=== PATIENT | male | born 1955 | race American Indian/Alaskan Native ===

== ENCOUNTER 2017-03-14 15:24 | Inpatient (IN) ==
--- NOTE | 2017-03-14 15:50 | Emergency Department Note ---
Chest Pain HPI - General Chief Complaint: Chest Pain Stated Complaint: Chest pain Time Seen by Provider: 03/14/17 15:39 Source: patient, EMS Mode of arrival: EMS Limitations: no limitations - History of Present Illness HPI Narrative: This patient has had some chest pain for about a week. Coughing a lot of white phlegm. He claims to have a 50 pound weight gain but has been started on some diuresis. He does feel slightly short of breath. He has renal insufficiency but is not on dialysis. He does have a history of heart failure with a implantable defibrillator. Also coronary disease. This pain in his chest has been constant for a week. Seems to be associated with his cough. He did go to the anemia clinic and was hypotensive there. Blood pressure is now higher at 96 systolic after some fluid. - Related Data Home Medications Medication Instructions Recorded Confirmed allopurinol 300 mg tablet 300 mg PO QDAY tab 10/07/14 09/27/16 amitriptyline 10 mg tablet 10 mg PO QHS tab 10/07/14 09/27/16 aspirin 81 mg chewable tablet 81 mg PO QDAY tab 10/07/14 09/27/16 insulin aspart 100 unit/mL 80 unit SUB-Q .COMPLEX ml 10/07/14 09/27/16 subcutaneous pen simvastatin 40 mg tablet 40 mg PO QPM tab 10/07/14 09/27/16 spironolactone 25 mg tablet 25 mg PO QDAY tab 10/07/14 09/27/16 Warfarin [Coumadin] 1 mg PO QDAY tab 07/11/15 09/27/16 metoprolol tartrate 50 mg tablet 75 mg PO BID tab 07/11/15 09/27/16 omega-3 fatty acids 1,000 mg 1,000 mg PO BID cap 07/11/15 09/27/16 capsule insulin glargine 100 unit/mL 82 unit SUB-Q BID ml 11/13/15 09/27/16 subcutaneous solution probenecid 500 mg tablet 250 mg PO BID tab 07/02/16 09/27/16 albuterol sulfate HFA 90 See Label Instructions INHALATION 09/27/16 09/27/16 mcg/actuation aerosol inhaler .Q4-6H PRN g digoxin 250 mcg tablet 500 mcg PO QHS tab 09/27/16 09/27/16 magnesium oxide 420 mg tablet 420 mg PO QDAY 09/27/16 09/27/16 potassium chloride ER 10 mEq 10 meq PO QDAY 30 Days #30 tab 09/27/16 09/27/16 tablet,extended release Previous Rx's Medication Instructions Recorded fenofibrate 54 mg tablet 54 mg PO QDAY #30 tab 07/11/15 furosemide 20 mg tablet 40 mg PO QDAY #60 tab 09/27/16 losartan 25 mg tablet 12.5 mg PO QDAY 30 Days #15 tab 09/27/16 HYDROcodone/APAP 5/325MG [[place] 1 tab PO Q4HP PRN #20 tab 03/01/17 5/325Mg] Allergies Allergy/AdvReac Type Severity Reaction Status Date / Time lactose Allergy Unknown Unknown Verified 02/27/17 14:59 adhesive Tape Allergy Unknown Rash Uncoded 09/27/16 14:31 Review of Systems All systems ED: reviewed and negative except as stated. Chest Pain PMH - Past Medical History [facility] Narrative: Medical History (Last Reviewed 09/27/16 @ 15:18 by Leidy Thompson MD) Hypoglycemia due to insulin (Acute) Diabetes mellitus type 2, uncontrolled, with complications (Acute) Morbid obesity due to excess calories (Acute) Hematocele (Acute) Chronic kidney disease, stage III (moderate) (Chronic) Chronic kidney disease, stage II (mild) (Chronic) History of pacemaker (Chronic 06/01/09) Venous stasis ulcer (Chronic) Ulcer of foot (Chronic) Fracture of thoracic vertebra, closed (Chronic) Ventricular aneurysm (Chronic) Spina bifida (Chronic) Seminoma (Chronic) Retinopathy, diabetic, background (Chronic) Onychomycosis (Chronic) Obesity (Chronic) Acute anterior myocardial infarction (Chronic) Lactose intolerance (Chronic) Ischemic cardiomyopathy (Chronic) Hypertension, essential (Chronic) Hyperlipidemia (Chronic) Gout (Chronic) Diabetes mellitus, type II (Chronic) Coronary artery disease (Chronic) Cerebrovascular disease (Chronic) Secondary cardiomyopathy (Chronic) Cardiomyopathy (Chronic) Atrial fibrillation (Chronic) Asthma (Chronic) Past Surgical History (Last Reviewed 09/27/16 @ 15:18 by Leidy Thompson MD) History of implantable cardioverter-defibrillator (ICD) placement (Chronic 06/01) History of knee surgery (Chronic 06/20/94) History of orchiectomy (Chronic) History of surgical removal of skin lesion (Chronic) History of colonoscopy (Chronic 08/18/09) History of angioplasty (Chronic) Family History (Last Reviewed 09/27/16 @ 15:18 by Leidy Thompson MD) Unknown Family history unknown Medical history: Reports: asthma, DM, hyperlipidemia, hypertension, kidney stones, myocardial infarction, obesity, TIA, other Psychiatric history: Reports: anxiety - Social History smoking status: Never smoker Alcohol use: Reports: None Drug use: Reports: none Physical Exam Limitations: no limitations Head: atraumatic Eye: Present: normal appearance ENT: normal exam Neck: Present: normal inspection Chest: Present: normal inspection Respiratory: Present: normal lung sounds bilaterally Cardiovascular: Present: regular rate, normal rhythm, normal heart sounds Abdominal: Present: soft. Absent: distention, tenderness Extremities: Present: pedal edema, pretibial edema Neurological: Present: alert Psychiatric: Present: normal affect, normal mood Skin: Present: warm, dry, intact Course Vital Signs Temperature 96.9 F L 03/14/17 15:25 Pulse Rate 65 03/14/17 15:25 Respiratory Rate 13 03/14/17 15:25 Blood Pressure 96/61 03/14/17 15:25 Pulse Oximetry (%) 96 03/14/17 15:25 Temperature 96.9 F L 03/14/17 15:25 Pulse Rate 68 03/14/17 19:49 Respiratory Rate 21 03/14/17 19:49 Blood Pressure 104/66 03/14/17 19:49 Pulse Oximetry (%) 97 03/14/17 19:49 Chest Pain - MDM Narrative Medical decision making narrative: Patient's chest x-ray was read as normal. He did require some fluid to get his blood pressure up. It sounds like maybe he has been over diuresed recently. He has had a productive cough for several weeks. We will go ahead and admit him to the [facility]. - Lab Data Lab results reviewed: Yes I reviewed the patient's lab results. Result diagrams: 03/14/17 15:40 03/14/17 15:40 Lab Results 03/14/17 03/14/17 03/14/17 Range/Units 15:40 15:40 15:40 WBC 7.0 (4.5-11.0) K/mcL RBC 4.71 (4.50-5.90) M/mcL Hgb 13.3 L (13.5-16.5) g/dL Hct 40.9 L (41.0-55.0) % MCV 86.9 (80.0-100.0) fL MCH 28.2 (26.0-34.0) pg MCHC 32.5 (31.0-36.0) g/dL RDW 18.9 H (11.5-14.5) % Plt Count 130 L (140-440) K/mcL MPV 9.6 (7.4-10.4) fL Gran % 78.0 (38.0-78.0) % Lymph % (Auto) 5.8 L (15.5-49.0) % Bradford % (Auto) 9.5 (1.0-12.0) % Eos % (Auto) 6.1 (0.0-7.0) % Baso % (Auto) 0.6 (0.0-2.0) % Gran # 5.4 (1.8-8.0) K/mcL Lymph # (Auto) 0.4 L (1.5-4.8) K/mcL Bradford # (Auto) 0.7 (0.1-0.9) K/mcL Eos # (Auto) 0.4 (0.0-0.7) K/mcL Baso # (Auto) 0 (0.0-0.3) K/mcL POC PT (11.9-14.5) sec PT (11.9-14.5) sec POC INR (0.9-1.2) INR (0.9-1.1) VBG Lactic Acid (0.5-2.2) mmol/L Sodium 133 (133-145) mmol/L Potassium 4.9 (3.3-5.1) mmol/L Chloride 93 L (96-108) mmol/L Carbon Dioxide 25 (22-30) mmol/L Anion Gap 15.0 (8-16) BUN 70 H (6-20) mg/dl Creatinine 2.2 H (0.7-1.2) mg/dl GFR Calculation 32 Glucose 116 H (70-105) mg/dL Calcium 8.6 (8.6-10.4) mg/dl Total Bilirubin 1.3 H (0.0-1.0) mg/dL AST 32 (0-37) U/l ALT 19 (0-40) U/l Alkaline Phosphatase 379 H (39-117) U/L Troponin T 0.03 (0-0.03) ng/ml NT-Pro-B Natriuret Pep 1265.0 H (0-125) pg/ml Total Protein 7.2 (5.9-8.4) gm/dL Albumin 3.3 (3.2-5.2) gm/dL Globulin 3.9 H (2.2-3.7) gm/dL Albumin/Globulin Ratio 0.8 L (1.0-2.3) Digoxin ng/mL Digoxin Dose Digox Last Dose Time 03/14/17 03/14/17 03/14/17 Range/Units 15:40 15:40 15:56 WBC (4.5-11.0) K/mcL RBC (4.50-5.90) M/mcL Hgb (13.5-16.5) g/dL Hct (41.0-55.0) % MCV (80.0-100.0) fL MCH (26.0-34.0) pg MCHC (31.0-36.0) g/dL RDW (11.5-14.5) % Plt Count (140-440) K/mcL MPV (7.4-10.4) fL Gran % (38.0-78.0) % Lymph % (Auto) (15.5-49.0) % Bradford % (Auto) (1.0-12.0) % Eos % (Auto) (0.0-7.0) % Baso % (Auto) (0.0-2.0) % Gran # (1.8-8.0) K/mcL Lymph # (Auto) (1.5-4.8) K/mcL Bradford # (Auto) (0.1-0.9) K/mcL Eos # (Auto) (0.0-0.7) K/mcL Baso # (Auto) (0.0-0.3) K/mcL POC PT (11.9-14.5) sec PT > 150.0 H (11.9-14.5) sec POC INR (0.9-1.2) INR > 20.0 H* (0.9-1.1) VBG Lactic Acid 1.3 (0.5-2.2) mmol/L Sodium (133-145) mmol/L Potassium (3.3-5.1) mmol/L Chloride (96-108) mmol/L Carbon Dioxide (22-30) mmol/L Anion Gap (8-16) BUN (6-20) mg/dl Creatinine (0.7-1.2) mg/dl GFR Calculation Glucose (70-105) mg/dL Calcium (8.6-10.4) mg/dl Total Bilirubin (0.0-1.0) mg/dL AST (0-37) U/l ALT (0-40) U/l Alkaline Phosphatase (39-117) U/L Troponin T (0-0.03) ng/ml NT-Pro-B Natriuret Pep (0-125) pg/ml Total Protein (5.9-8.4) gm/dL Albumin (3.2-5.2) gm/dL Globulin (2.2-3.7) gm/dL Albumin/Globulin Ratio (1.0-2.3) Digoxin 0.5 ng/mL Digoxin Dose Not Reportable Digox Last Dose Time Not Reportable 03/14/17 Range/Units 19:14 WBC (4.5-11.0) K/mcL RBC (4.50-5.90) M/mcL Hgb (13.5-16.5) g/dL Hct (41.0-55.0) % MCV (80.0-100.0) fL MCH (26.0-34.0) pg MCHC (31.0-36.0) g/dL RDW (11.5-14.5) % Plt Count (140-440) K/mcL MPV (7.4-10.4) fL Gran % (38.0-78.0) % Lymph % (Auto) (15.5-49.0) % Bradford % (Auto) (1.0-12.0) % Eos % (Auto) (0.0-7.0) % Baso % (Auto) (0.0-2.0) % Gran # (1.8-8.0) K/mcL Lymph # (Auto) (1.5-4.8) K/mcL [place] # (Auto) (0.1-0.9) K/mcL Eos # (Auto) (0.0-0.7) K/mcL Baso # (Auto) (0.0-0.3) K/mcL POC PT 39.9 H (11.9-14.5) sec PT (11.9-14.5) sec POC INR 3.5 H (0.9-1.2) INR (0.9-1.1) VBG Lactic Acid (0.5-2.2) mmol/L Sodium (133-145) mmol/L Potassium (3.3-5.1) mmol/L Chloride (96-108) mmol/L Carbon Dioxide (22-30) mmol/L Anion Gap (8-16) BUN (6-20) mg/dl Creatinine (0.7-1.2) mg/dl GFR Calculation Glucose (70-105) mg/dL Calcium (8.6-10.4) mg/dl Total Bilirubin (0.0-1.0) mg/dL AST (0-37) U/l ALT (0-40) U/l Alkaline Phosphatase (39-117) U/L Troponin T (0-0.03) ng/ml NT-Pro-B Natriuret Pep (0-125) pg/ml Total Protein (5.9-8.4) gm/dL Albumin (3.2-5.2) gm/dL Globulin (2.2-3.7) gm/dL Albumin/Globulin Ratio (1.0-2.3) Digoxin ng/mL Digoxin Dose Digox Last Dose Time - Radiology Data Radiology results reviewed: Yes I reviewed the patient's radiology results. Disposition Pt seen by RESIDENTIAL AIR SEALING TECHNICIAN/PA only: No Clinical Impression: Chest pain, Bronchitis, Congestive heart failure Disposition: Xfer As Inpt ([facility]) Condition: Fair Referrals: Belen Osman [Primary Care Provider] - Time of Disposition: 19:52
[2017-03-14 16:13] LABS: Basophils # (Auto) 0 K/mcL (0.0-0.3); Basophils % (Auto) 0.6 % (0.0-2.0); Eosinophils # (Auto) 0.4 K/mcL (0.0-0.7); Eosinophils % (Auto) 6.1 % (0.0-7.0); Lymphocytes # (Auto) 0.4 K/mcL (1.5-4.8); Lymphocytes % (Auto) 5.8 % (15.5-49.0); Mean Cell Volume 86.9 fL (80.0-100.0); Mean Corpuscular HGB Conc 32.5 g/dL (31.0-36.0); Mean Corpuscular Hemoglobin 28.2 pg (26.0-34.0); Monocytes # (Auto) 0.7 K/mcL (0.1-0.9); Monocytes % (Auto) 9.5 % (1.0-12.0); Platelet Count 130 K/mcL (140-440); RBC 4.71 M/mcL (4.50-5.90); Red Cell Distribution Width 18.9 % (11.5-14.5)
--- NOTE | 2017-03-14 16:14 | XRay Report ---
INDICATION: Cough TECHNIQUE: PA and lateral upright chest x-ray COMPARISON: Chest x-rays dated 01/01/2017 and 05/21/2013 FINDINGS:Left transvenous pacemaker leads are unchanged There is cardiomegaly. No pulmonary edema. No focal pulmonary consolidation. There is blunting of the posterior costophrenic sulci bilaterally consistent with small effusions. IMPRESSION: 1. Cardiomegaly. No pulmonary edema. 2. No focal pulmonary parenchymal infiltrates 3. Small posterior pleural effusions. Interpreted and Authenticated by: Jose Kahn 03/14/17
[2017-03-14 16:32] LABS: ALT/SGPT 19 U/l (0-40); Albumin 3.3 gm/dL (3.2-5.2); Albumin/Globulin Ratio 0.8 (1.0-2.3); Alkaline Phosphatase 379 U/L (39-117); Blood Urea Nitrogen 70 mg/dl (6-20)
[2017-03-14] MEDS ORDERED: LEVOFLOXACIN 750 MG/150 ML BAG IV ONE (18:05)
[2017-03-14] MEDS ORDERED: ACETAMINOPHEN 325 MG TABLET PO PRN (20:49)
[2017-03-14] MEDS ORDERED: ONDANSETRON 4 MG/2 ML VIAL IV PRN (20:49)
[2017-03-14] MEDS ORDERED: DEXTROSE 50% 50 ML VIAL IV PRN (22:05)
[2017-03-14] MEDS ORDERED: DEXTROSE 31 GM ORAL.SUSP PO PRN (22:05)
--- NOTE | 2017-03-14 22:10 | Internal Med History&Physical ---
Medical - H&P: [facility] Patient information: Note initiated : 03/14/17 at 10:10 pm Service Date, if different from initiated Date: [] Patient: Alfredo Mccall III 61 y/o M admitted on 03/14/17 for Chest pain. Chief Complaint: chest pain and SOB 61-year-old male with an extensive cardiac history, including severe cardiomyopathy, chronic atrial fibrillation, presented to the ED with chest pressure associated with SOB, non-radiating and not related to exertion. Patient has been in different EDs and the [facility] 5 times in the last 10 days for different problems, including shortness of breath. Since he has gained 50 lbs in weight with significantly worsening pedal edema. He was started on diuretics and upon arrival in the ED his SBP was 96. Patient has been a diabetic since age 37, and reportedly has been difficult to control. There are no records available in our EMR, and patient can't recall his last A1C. He has an AICD since 2009, and has severe cardiomyopathy with EF 20%, no significant valvular abnormalities and probable pulmonary hypertension. 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 He also has yeast infection of the inguinal area and difficulty voiding due to the pannus. Other problems include PVD and L foot ulceration. He underwent bilateral LE angiography on 03/11 which showed patent arteries on the R. On the L, the arteries are patent, but there is a significant resistance to flow on the L side , responding to Verapamil infusion. History of present illness: Mr. Cal WESTON is a 61 year old M All systems: reviewed and no additional remarkable complaints except as stated Medical - H&P: PMH Medical history: Medical History (Last Reviewed 03/14/17 @ 20:17 by Lenin Bone MD) Hypoglycemia due to insulin (Acute) Diabetes mellitus type 2, uncontrolled, with complications (Acute) Morbid obesity due to excess calories (Acute) Hematocele (Acute) Chest pain (Acute) Bronchitis (Acute) Congestive heart failure (Acute) Chronic kidney disease, stage III (moderate) (Chronic) Chronic kidney disease, stage II (mild) (Chronic) History of pacemaker (Chronic 06/01/09) Venous stasis ulcer (Chronic) Ulcer of foot (Chronic) Fracture of thoracic vertebra, closed (Chronic) Ventricular aneurysm (Chronic) Spina bifida (Chronic) Seminoma (Chronic) Retinopathy, diabetic, background (Chronic) Onychomycosis (Chronic) Obesity (Chronic) Acute anterior myocardial infarction (Chronic) Lactose intolerance (Chronic) Ischemic cardiomyopathy (Chronic) Hypertension, essential (Chronic) Hyperlipidemia (Chronic) Gout (Chronic) Diabetes mellitus, type II (Chronic) Coronary artery disease (Chronic) Cerebrovascular disease (Chronic) Secondary cardiomyopathy (Chronic) Cardiomyopathy (Chronic) Atrial fibrillation (Chronic) Asthma (Chronic) Surgical history: Past Surgical History (Last Reviewed 03/14/17 @ 20:17 by Lenin Bone MD) History of implantable cardioverter-defibrillator (ICD) placement (Chronic 06/01) History of knee surgery (Chronic 06/20/94) History of orchiectomy (Chronic) History of surgical removal of skin lesion (Chronic) History of colonoscopy (Chronic 08/18/09) History of angioplasty (Chronic) Pertinent family history: NEGATIVE FOR HEART DISEASE Social history: CURRENTLY LIVES WITH NIECE, BUT HAS HIS OWN PLACE Functional capacity: independent ambulation Smoking status: Never smoker Drug use: none Alcohol use: none Medical - H&P: Meds Home Medications Medication Instructions Recorded Confirmed Type allopurinol 300 mg tablet 300 mg PO QDAY tab 10/07/14 09/27/16 History amitriptyline 10 mg tablet 10 mg PO QHS tab 10/07/14 09/27/16 History aspirin 81 mg chewable tablet 81 mg PO QDAY tab 10/07/14 09/27/16 History insulin aspart 100 unit/mL 80 unit SUB-Q .COMPLEX ml 10/07/14 09/27/16 History subcutaneous pen simvastatin 40 mg tablet 40 mg PO QPM tab 10/07/14 09/27/16 History spironolactone 25 mg tablet 25 mg PO QDAY tab 10/07/14 09/27/16 History RX: Warfarin [Coumadin] 1 mg PO QDAY tab 07/11/15 09/27/16 History fenofibrate 54 mg tablet 54 mg PO QDAY #30 tab 07/11/15 09/27/16 Rx metoprolol tartrate 50 mg tablet 75 mg PO BID tab 07/11/15 09/27/16 History omega-3 fatty acids 1,000 mg 1,000 mg PO BID cap 07/11/15 09/27/16 History capsule insulin glargine 100 unit/mL 82 unit SUB-Q BID ml 11/13/15 09/27/16 History subcutaneous solution probenecid 500 mg tablet 250 mg PO BID tab 07/02/16 09/27/16 History albuterol sulfate HFA 90 See Label Instructions INHALATION 09/27/16 09/27/16 History mcg/actuation aerosol inhaler .Q4-6H PRN g digoxin 250 mcg tablet 500 mcg PO QHS tab 09/27/16 09/27/16 History furosemide 20 mg tablet 40 mg PO QDAY #60 tab 09/27/16 09/27/16 Rx losartan 25 mg tablet 12.5 mg PO QDAY 30 Days #15 tab 09/27/16 09/27/16 Rx magnesium oxide 420 mg tablet 420 mg PO QDAY 09/27/16 09/27/16 History potassium chloride ER 10 mEq 10 meq PO QDAY 30 Days #30 tab 09/27/16 09/27/16 History tablet,extended release RX: HYDROcodone/APAP 5/325MG 1 tab PO Q4HP PRN #20 tab 03/01/17 Rx [[place] 5/325Mg] Allergies Allergy/AdvReac Type Severity Reaction Status Date / Time lactose Allergy Unknown Unknown Verified 02/27/17 14:59 adhesive Tape Allergy Unknown Rash Uncoded 09/27/16 14:31 Medical - H&P: Exam - Constitutional Vitals: Temp Pulse Resp BP Pulse Ox 96.9 F L 64 11 L 97/76 97 03/14/17 15:25 03/14/17 21:44 03/14/17 21:44 03/14/17 21:44 03/14/17 21:44 General appearance: morbidly obese - Head Head exam: Present: normal inspection - Eye Eye exam: Present: EOMI, PERRL - Neck Neck exam: Present: normal inspection - Respiratory Respiratory exam: Present: decreased breath sounds - Cardiovascular Cardiovascular exam: Present: irregular rhythm - GI/Abdominal GI/Abdominal exam: Present: normal bowel sounds, soft - Extremities Exam Extremities exam: Present: pedal edema Additional comments: CHRONIC VENOUS STASIS DERMATITIS BILATERALLY WITH SIGNIFICANT EDEMA. ULCERATION OF L FOOT. NO DRAINAGE. Medical - H&P: Reslt - Labs CBC & Chem 7: 03/14/17 15:40 03/14/17 15:40 Labs: Short CBC 03/14/17 Range/Units 15:40 WBC 7.0 (4.5-11.0) K/mcL Hgb 13.3 L (13.5-16.5) g/dL Hct 40.9 L (41.0-55.0) % Plt Count 130 L (140-440) K/mcL BMP 03/14/17 15:40 Sodium 133 Potassium 4.9 Chloride 93 L Carbon Dioxide 25 BUN 70 H Creatinine 2.2 H Glucose 116 H Calcium 8.6 Cardiac Enzymes 03/14/17 Range/Units 15:40 Troponin T 0.03 (0-0.03) ng/ml Liver Function 03/14/17 Range/Units 15:40 Total Bilirubin 1.3 H (0.0-1.0) mg/dL AST 32 (0-37) U/l ALT 19 (0-40) U/l Alkaline Phosphatase 379 H (39-117) U/L Albumin 3.3 (3.2-5.2) gm/dL - EKG Data EKG comments: ATRIAL FIBRILLATION, AICD, RBBB Medical - H&P: A/P - Narrative A/P Narrative: 61-YEAR-OLD MALE, PRESENTED 03/14 TO THE ED WITH CP AND SOB. MEDICAL PROBLEMS: + CHEST PAIN Many risk factors present for ACS incl: HL, HTN, DM ECG baseline abnormal with BBB + SEVERE CARDIOMYOPATHY, S/P AICS PLACEMENT Uncertain whether ischemic vs non-ischemic Recent ECHO: LVEF 20%, no significant valvular abnormalities, suggestive of pulmonary hypertension + ANASARCA AND WEIGHT GAIN OF 50 LBS Uncertain etiology. Due to combination of cardiomyopathy and CKD r/o nephrotic syndrome + CHRONIC ATRIAL FIBRILLATION On coumadin + DM, POORLY CONTROLLED + HTN + HL + MORBID OBESITY WITH BMI 40 + CHRONIC KIDNEY DISEASE + CHRONIC VENOUS STASIS DERMATITIS LOWER EXTREMITIES + L FOOT ULCER Patient followed by wound clinic Currently, I don't have access to his cardiac and extensive pmh. Uncertain what the cause of anasarca is. Medication list was not available. PLAN: CPAP HS trial Diuretic. Titrate as SBP is marginal Hold Losartan Serial cardiac enzymes Insulin and SS consult wound care continue coumadin, pharmacy consult +
[2017-03-14] MEDS: 0.9 % SODIUM CHLORIDE 10 ML SYRINGE IV SCH (22:31)
[2017-03-14] MEDS: DOCUSATE SODIUM 100 MG CAPSULE PO SCH (23:12)
[2017-03-15] MEDS ORDERED: ZOLPIDEM 5 MG TABLET PO PRN ×2 (00:52→21:00)
[2017-03-15] MEDS ORDERED: HYDROCODONE/APAP 7.5/325MG TABLET PO PRN (00:54)
[2017-03-15] MEDS: 0.9 % SODIUM CHLORIDE 10 ML SYRINGE IV SCH ×3 (06:06→21:35)
[2017-03-15] MEDS ORDERED: FUROSEMIDE 20 MG/2 ML VIAL IV SCH ×2 (08:00→14:00)
[2017-03-15] MEDS: INSULIN LISPRO 1 UNIT/0.01 ML UNIT SQ SCH ×4 (08:55→21:25)
[2017-03-15] MEDS: DOCUSATE SODIUM 100 MG CAPSULE PO SCH ×2 (08:56→21:26)
[2017-03-15] MEDS ORDERED: NYSTATIN POWDER BOTTLE 15GM TOPICAL SCH (09:00)
[2017-03-15] MEDS ORDERED: ALLOPURINOL 300 MG TABLET PO SCH (09:00)
[2017-03-15 10:53] LABS: Appearance,Urine CLEAR; Bacteria,Urine 0 /hpf (0); Bilirubin,Urine NEG (NEG); Color,Urine YELLOW; Glucose,Urine (UA) NEGATIVE (NEG); Leukocyte Esterase,Urine NEG /uL (NEG); Mucus,Urine FEW /hpf (0); Nitrate,Urine NEG (NEG); Protein,Urine NEG (NEG); Urine Blood NEG mg/dL (<0.03); Urine RBC 2 /hpf (0-1); Urine Squamous Epithelial Cell 0 /hpf (0-4); Urine WBC 0 /hpf (0-4)
[2017-03-15 10:55] LABS: Creatinine,Urine Random 42.5 mg/dl
[2017-03-15] MEDS ORDERED: WARFARIN 3 MG TABLET PO ONE (14:00)
[2017-03-15] MEDS ORDERED: DIGOXIN 125 MCG TABLET PO SCH (14:00)
--- NOTE | 2017-03-15 14:02 | Nephrology Consult Note ---
History of Present Illness - Reason for Consult Patient information: Note initiated : 03/15/17 at 1:57 pm Service Date, if different from initiated Date: [] Patient: Alfredo Mccall III 61 y/o M admitted on 03/14/17 for Chest pain. Chief Complaint: [] Consult date: 03/15/17 acute renal failure Requesting physician: Lenin Bone - Chief Complaint sob - History of Present Illness Mr Cal is a 61 y/o male who is admitted with fluid overload and worsening renal function Patient has h/o ischemic cardiomyopathy with EF of 20%, CKD stage III and other medical issues. He presented to the ED yesterday with worsening SOB and chest tightness. ACS ruled out. He has had 50 lbs weight gain despite using loop diuretics. He c/o SOB with minimal exertion and orthopnea. He denies dizziness. He denies any urinary symptoms. He denies using NSAIDS. He is trying to watch his sodium intake He does drink 2-2.5L of water every day no other complaints, denies nausea, vomiting, diarrhea The patient has not been doing well recently, he had AICD placed and then had infection and needed repeat surgery He has had LE wound which is now finally healed per patient he has had several ER visits for various reasons including hypoglycemia, hyperkalemia, fluid overload Patient on evaluation is diagnosed with CHF/anasarca and he has BUN of 72, s.creatinine 2.2 which is significantly worse as compared to baseline renal function and hence nephrology is consulted Review of Systems All systems PM: reviewed and no additional remarkable complaints except as stated (as in HPI) Past History Past medical history: DM type 2 which is poorly controlled, his A1C are usually above 10 ischemic cardiomyopathy with EF of 20% CKD stage III, S.Creatinine is 1.2-1.5 at baseline dyslipidemia h/o scott's gangrene recent ho LE diabetic wound, h/o diabetic retinopathy Past surgical history: h/o angioplasty h/o AICD placement Past family history: not pertinent Past social history: currently lives with his niece 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 [employer] no addictions at present Medications and Allergies Home Medications Medication Instructions Recorded Confirmed Type allopurinol 300 mg tablet 300 mg PO QDAY tab 10/07/14 03/15/17 History amitriptyline 10 mg tablet 10 mg PO QHS tab 10/07/14 03/15/17 History aspirin 81 mg chewable tablet 81 mg PO QDAY tab 10/07/14 03/15/17 History insulin aspart 100 unit/mL 80 unit SUB-Q .COMPLEX PRN ml 10/07/14 03/15/17 History subcutaneous pen fenofibrate 54 mg tablet 54 mg PO QDAY #30 tab 07/11/15 09/27/16 Rx insulin glargine 100 unit/mL 30 unit SUB-Q BID ml 11/13/15 03/15/17 History subcutaneous solution albuterol sulfate HFA 90 See Label Instructions INHALATION 09/27/16 03/15/17 History mcg/actuation aerosol inhaler .Q4-6H PRN g digoxin 250 mcg tablet 250 mcg PO QHS tab 09/27/16 03/15/17 History magnesium oxide 420 mg tablet 420 mg PO QDAY 09/27/16 03/15/17 History HYDROcodone/APAP 5/325MG [[place] 1 tab PO Q4HP PRN #20 tab 03/01/17 03/15/17 Rx 5/325Mg] Ketoconazole 2% Top Crm 1 dose TOPICAL DAILY 03/15/17 03/15/17 History Loratadine [Loradamed] 10 mg PO BID 03/15/17 03/15/17 History Losartan Potassium [Cozaar] 25 mg PO QDAY 03/15/17 03/15/17 History Metoprolol Succinate [Toprol Xl] 75 mg PO BID 03/15/17 03/15/17 History Nystatin [Nyata] 1 dose TOPICAL DAILY 03/15/17 03/15/17 History [place]-3/Dha/Epa/Fish Oil [Fish Oil 1,000 mg PO BID 03/15/17 03/15/17 History 1,000 mg Softgel] Probenecid [Probenecid] 250 mg PO BID 03/15/17 03/15/17 History Simvastatin [Zocor] 40 mg PO HS 03/15/17 03/15/17 History Spironolactone [Aldactone] 12.5 mg PO BIDD 03/15/17 03/15/17 History Torsemide [Demadex] 20 mg PO DAILY@1700 03/15/17 03/15/17 History Torsemide [Demadex] 40 mg PO BID@08,1200 03/15/17 03/15/17 History Warfarin [Coumadin] 8 mg PO DAILY@1400 03/15/17 03/15/17 History Allergies Allergy/AdvReac Type Severity Reaction Status Date / Time lactose Allergy Unknown Unknown Verified 02/27/17 14:59 adhesive Tape Allergy Unknown Rash Uncoded 09/27/16 14:31 Exam - Vital Signs Vital signs: Temp Pulse Resp BP Pulse Ox 97.6 F 80 18 109/63 99 03/15/17 13:00 03/15/17 13:00 03/15/17 13:00 03/15/17 13:01 03/15/17 13:00 - General Appearance General appearance: appears started age, obese EENT: mucous membranes moist Neck: no JVD Respiratory: clear Cardiology: no rub, edema (3+), irregular rhythm Gastrointestinal: no tenderness, no guarding Integumentary: warm and dry Neurologic: no focal deficit, alert and oriented x3 Musculoskeletal: no erythema, no cyanosis Psychiatric: mood/affect appropriate Results - Lab Results 03/14/17 15:40 03/14/17 15:40 Most recent lab results Calcium 8.6 mg/dl (8.6-10.4) 03/14/17 15:40 Assessment and Plan (1) Acute on chronic renal failure Patient with BUN of 72, s.creat of 2.2 which is significantly worse than his baseline renal function he has no overt proteinuria which is strange as he has h/o significant proteinuria related to his DM His Fena is 2.2 but his fe urea is 31% which indicates pre renal state patient's worsening renal function is likely from cardio renal state fluid overload is ? related to worsening renal function and diuretic resistant from use of excess sodium in the diet and excess fluid intake I will increase his IV lasix to 20mg q8hrs as he seems to be making more urine with IV lasix as compared to oral I will restrict his fluid intake to 1.2L I will follow his I/O and renal function and titrate his diuretic dose would hold losartan for now need to be on low sodium diet I will continue to follow him Thank you for giving me an opportunity to participate in Mr Mccall's medical care, appreciate it Status: Acute (2) Congestive heart failure Status: Acute
[2017-03-15] MEDS ORDERED: FUROSEMIDE 40 MG/4 ML VIAL IV SCH (16:00)
--- NOTE | 2017-03-15 16:26 | Internal Med Progress Note ---
Medical - PN: Subj Patient information: Note initiated : 03/15/17 at 4:21 pm Service Date, if different from initiated Date: [] Patient: Alfredo Mccall III 61 y/o M admitted on 03/14/17 for Chest pain. 61-year-old male with an extensive cardiac history, including severe cardiomyopathy, chronic atrial fibrillation, presented to the ED with chest pressure associated with SOB, non-radiating and not related to exertion. Patient has been in different EDs and the [facility] 5 times in the last 10 days for different problems, including shortness of breath. Since he has gained 50 lbs in weight with significantly worsening pedal edema. He was started on diuretics and upon arrival in the ED his SBP was 96. Patient has been a diabetic since age 37, and reportedly has been difficult to control. There are no records available in our EMR, and patient can't recall his last A1C. He has an AICD since 2009, and has severe cardiomyopathy with EF 20%, no significant valvular abnormalities and probable pulmonary hypertension. 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 He also has yeast infection of the inguinal area and difficulty voiding due to the pannus. Other problems include PVD and L foot ulceration. He underwent bilateral LE angiography on 03/11 which showed patent arteries on the R. On the L, the arteries are patent, but there is a significant resistance to flow on the L side , responding to Verapamil infusion. Interval history: 61-YEAR-OLD MALE, PRESENTED 03/14 TO THE ED WITH CP AND SOB. 03/14: + CHEST PAIN Many risk factors present for ACS incl: HL, HTN, DM ECG baseline abnormal with BBB + SEVERE CARDIOMYOPATHY, S/P AICS PLACEMENT Uncertain whether ischemic vs non-ischemic Recent ECHO: LVEF 20%, no significant valvular abnormalities, suggestive of pulmonary hypertension + ANASARCA AND WEIGHT GAIN OF 50 LBS Uncertain etiology. Due to combination of cardiomyopathy and CKD r/o nephrotic syndrome + CHRONIC ATRIAL FIBRILLATION On coumadin + DM, POORLY CONTROLLED + HTN + HL + MORBID OBESITY WITH BMI 40 + CHRONIC KIDNEY DISEASE + CHRONIC VENOUS STASIS DERMATITIS LOWER EXTREMITIES + L FOOT ULCER Patient followed by wound clinic 03/15: CPAP HS trial not well tolerated BS low on Glargine BID dosing -------> will change to HS only Cr worsening. Nephrology consulted Troponin wnl Continue to hold Losartan for marginal BP - Constitutional Vitals: Vital Signs Temp Pulse Resp BP Pulse Ox 97.6 F 80 18 109/63 99 03/15/17 13:00 03/15/17 13:00 03/15/17 13:00 03/15/17 13:01 03/15/17 13:00 Period Temp Pulse Resp BP Sys/Hernandez Pulse Ox Last 24 Hr 97.0 F-98.2 F 34-81 0-27 79-115/58-86 94-99 Intake and Output 03/15/17 03/15/17 03/15/17 05:59 13:59 21:59 Intake Total 740 / 740 120 / 120 Output Total 750 / 750 1325 / 1325 750 / 750 Balance -10 / -10 -1205 / -1205 -750 / -750 Weight 312 lb 8 oz Patient Weight 03/16/17 05:59 Weight 312 lb 8 oz Intake & Output: Intake & Output 03/15/17 03/15/17 03/15/17 05:59 13:59 21:59 Intake Total 740 / 740 120 / 120 Output Total 750 / 750 1325 / 1325 750 / 750 Balance -10 / -10 -1205 / -1205 -750 / -750 Weight 312 lb 8 oz Intake: Oral 740 / 740 120 / 120 Output: Void Amount 750 / 750 1325 / 1325 750 / 750 Other: Meal Breakfast Percent of Meal Consumed 100% Feeding Ability Independent General appearance: morbidly obese - Respiratory Respiratory exam: Present: decreased breath sounds - Cardiovascular Cardiovascular exam: Present: irregular rhythm - GI/Abdominal GI/Abdominal exam: Present: normal bowel sounds, soft - Extremities Exam Extremities exam: Present: pedal edema Additional comments: CHRONIC VENOUS STASIS DERMATITIS, L FOOT ULCER Medical - PN: Obj Da - Labs CBC & Chem 7: 03/14/17 15:40 03/14/17 15:40 Labs: Abnormal Lab Results 03/15/17 03/15/17 03/14/17 10:23 07:37 19:14 Hgb Hct RDW Plt Count Lymph % (Auto) Lymph # (Auto) POC PT 39.9 H PT 31.0 H POC INR 3.5 H INR 2.9 H Chloride BUN Creatinine Glucose Total Bilirubin Alkaline Phosphatase NT-Pro-B Natriuret Pep Globulin Albumin/Globulin Ratio Urine Urobilinogen 4.0 A Urine RBC 2 H 03/14/17 03/14/17 03/14/17 15:40 15:40 15:40 Hgb 13.3 L Hct 40.9 L RDW 18.9 H Plt Count 130 L Lymph % (Auto) 5.8 L Lymph # (Auto) 0.4 L POC PT PT > 150.0 H POC INR INR > 20.0 H* Chloride 93 L BUN 70 H Creatinine 2.2 H Glucose 116 H Total Bilirubin 1.3 H Alkaline Phosphatase 379 H NT-Pro-B Natriuret Pep 1265.0 H Globulin 3.9 H Albumin/Globulin Ratio 0.8 L Urine Urobilinogen Urine RBC Meds: Medications Acetaminophen (Tylenol) 650 mg PO Q4-6HP PRN PRN Reason: PAIN/FEVER > 101 Hydrocodone Bitart/Acetaminophen ([place] 7.5/325mg) 1 tab PO Q4-6HP PRN PRN Reason: PAIN LEVEL 3-6 Allopurinol (Zylopriim) 300 mg PO DAILY [facility] Last Admin: 03/15/17 08:56 Dose: 300 mg Amitriptyline HCl (Elavil) 10 mg PO HS [facility] Aspirin (Aspirin) 81 mg PO QDAY [facility] Dextrose (Dextrose 50%) 0 ml IV UD PRN PRN Reason: Hypoglycemia Diagnostic Test (Pha) (Accu-Chek) 1 each FS ACHS [facility] Last Admin: 03/15/17 11:50 Dose: 1 each Digoxin (Lanoxin) 250 mcg PO DAILY@1400 [facility] Last Admin: 03/15/17 13:57 Dose: 250 mcg Docusate Sodium (Colace) 100 mg PO BID [facility] Last Admin: 03/15/17 08:56 Dose: Not Given Furosemide (Lasix) 20 mg IV Q8 [facility] Last Admin: 03/15/17 13:58 Dose: 20 mg Glucose (Insta-Glucose) 15 gm PO PRN PRN PRN Reason: Hypoglycemia Insulin Glargine (Lantus) 40 unit SQ HS [facility] Insulin Human Lispro (Humalog) 0 unit SQ ACHS [facility] PRN Reason: Protocol Last Admin: 03/15/17 11:51 Dose: Not Given Non-Formulary Medication (Ketoconazole 2% Top Crm) 1 dose TOPICAL DAILY [facility] Non-Formulary Medication (Magnesium Oxide [Magnesium Oxide]) 420 mg PO QDAY [facility] Non-Formulary Medication ([place]-3/Dha/Epa/Fish Oil [Fish Oil 1,000 Mg Softgel]) 1,000 mg PO BID [facility] Nystatin (Nystatin) 1 dose TOPICAL BID [facility] Last Admin: 03/15/17 12:18 Dose: Not Given Ondansetron HCl (Zofran) 4 mg IV Q4-6HP PRN PRN Reason: Nausea And Vomiting Pneumococcal Polyvalent Vaccine (Pneumovax 23) 0.5 ml IM .ONCE ONE Stop: 03/16/17 10:01 Probenecid (Probenecid) 250 mg PO BID [facility] Simvastatin (Zocor) 40 mg PO HS [facility] Sodium Chloride (Saline Flush) 10 ml IV Q8 [facility] Last Admin: 03/15/17 13:58 Dose: 10 ml Spironolactone (Aldactone) 12.5 mg PO BIDD [facility] Warfarin Sodium (Coumadin Per Pharmacy) 1 order PO DAILY@1400 [facility] Last Admin: 03/15/17 13:58 Dose: Not Given Zolpidem Tartrate (Ambien) 5 mg PO HSP PRN PRN Reason: Insomnia Medical - PN: A/P - Time Spent With Patient Total time spent is greater than 50% in coordination of care (as documented) at patient's floor/unit and/or counseling patient: 15 - 24 minutes - Narrative A/P Narrative: 61-YEAR-OLD MALE, PRESENTED 03/14 TO THE ED WITH CP AND SOB. MEDICAL PROBLEMS: + CHEST PAIN Many risk factors present for ACS incl: HL, HTN, DM ECG baseline abnormal with BBB Troponin negative. Stable will tx to [facility] + SEVERE CARDIOMYOPATHY, S/P AICS PLACEMENT Uncertain whether ischemic vs non-ischemic Recent ECHO: LVEF 20%, no significant valvular abnormalities, suggestive of pulmonary hypertension + ANASARCA AND WEIGHT GAIN OF 50 LBS Uncertain etiology. Due to combination of cardiomyopathy and CKD r/o nephrotic syndrome + CHRONIC ATRIAL FIBRILLATION On coumadin + DM, POORLY CONTROLLED + HTN + HL + MORBID OBESITY WITH BMI 40 + Acute on CHRONIC KIDNEY DISEASE?CARDIORENAL SX Worsening. Appreciate DR Thompson's help + CHRONIC VENOUS STASIS DERMATITIS LOWER EXTREMITIES + L FOOT ULCER Patient followed by wound clinic 03/15 PLAN: Glargine dose reduced Losartan continue hold Lasix dose adjusted by renal (dr Thompson) Tx to med floor Medical - PN: Qual - VTE Deep Vein Thrombosis/Pulmonary Embolism Present on Admission: No
[2017-03-15] MEDS ORDERED: DEXTROSE 50% 50 ML VIAL IV PRN (17:12)
[2017-03-15] MEDS ORDERED: ACETAMINOPHEN 325 MG TABLET PO PRN (17:12)
[2017-03-15] MEDS ORDERED: ONDANSETRON 4 MG/2 ML VIAL IV PRN (17:12)
[2017-03-15] MEDS ORDERED: DEXTROSE 31 GM ORAL.SUSP PO PRN (17:12)
[2017-03-15] MEDS ORDERED: AMITRIPTYLINE 10 MG TABLET PO SCH (21:00)
[2017-03-15] MEDS ORDERED: PROBENECID 500 MG TABLET PO SCH (21:00)
[2017-03-15] MEDS ORDERED: INSULIN GLARGINE, HUMAN 1 UNIT/0.01 ML SQ SCH ×2 (21:00)
[2017-03-15] MEDS ORDERED: SIMVASTATIN 20 MG TABLET PO SCH (21:00)
[2017-03-15] MEDS ORDERED: NON FORMULARY MEDICATION 1 DOSE MISCELL (Omega-3/Dha/Epa/Fish Oil [Fish Oil 1,000 Mg Softg PO SCH (21:00)
[2017-03-15] MEDS: FISH OIL 1,000 MG CAPSULE PO SCH (21:14)
[2017-03-15] MEDS: INSULIN GLARGINE, HUMAN 1 UNIT/0.01 ML SQ SCH (21:25)
[2017-03-15] MEDS: NYSTATIN POWDER BOTTLE 15GM TOPICAL SCH (21:25)
[2017-03-15] MEDS: AMITRIPTYLINE 10 MG TABLET PO SCH (21:26)
[2017-03-15] MEDS: SIMVASTATIN 20 MG TABLET PO SCH (21:26)
[2017-03-15] MEDS: FUROSEMIDE 20 MG/2 ML VIAL IV SCH (21:27)
[2017-03-15] MEDS: PROBENECID 500 MG TABLET PO SCH (21:56)
[2017-03-16] MEDS: FUROSEMIDE 20 MG/2 ML VIAL IV SCH ×3 (05:35→22:01)
[2017-03-16] MEDS: 0.9 % SODIUM CHLORIDE 10 ML SYRINGE IV SCH ×3 (05:36→22:02)
[2017-03-16 07:47] LABS: Albumin 3.3 gm/dL (3.2-5.2); Blood Urea Nitrogen 55 mg/dl (6-20)
[2017-03-16] MEDS: INSULIN LISPRO 1 UNIT/0.01 ML UNIT SQ SCH ×4 (08:00→20:44)
[2017-03-16] MEDS ORDERED: SPIRONOLACTONE 25 MG TABLET PO SCH (08:00)
[2017-03-16] MEDS: ALLOPURINOL 300 MG TABLET PO SCH (08:03)
[2017-03-16] MEDS: FISH OIL 1,000 MG CAPSULE PO SCH (08:03)
[2017-03-16] MEDS: ASPIRIN 81 MG TAB.CHEW PO SCH (08:03)
[2017-03-16] MEDS: MAGNESIUM OXIDE 400 MG TABLET PO SCH (08:03)
[2017-03-16] MEDS: SPIRONOLACTONE 25 MG TABLET PO SCH ×2 (08:04→16:42)
[2017-03-16] MEDS: DOCUSATE SODIUM 100 MG CAPSULE PO SCH ×2 (08:08→20:57)
[2017-03-16] MEDS: NYSTATIN POWDER BOTTLE 15GM TOPICAL SCH ×2 (08:10→20:44)
[2017-03-16] MEDS: KETOCONAZOLE 2% TOP CRM 15GM TUBE TOPICAL SCH (08:10)
[2017-03-16] MEDS ORDERED: KETOCONAZOLE 2% TOPICAL SCH (09:00)
[2017-03-16] MEDS ORDERED: ASPIRIN 81 MG TAB.CHEW PO SCH (09:00)
[2017-03-16] MEDS ORDERED: MAGNESIUM OXIDE 420 MG PO SCH (09:00)
[2017-03-16] MEDS ORDERED: PNEUMOCOCCAL 23-VAL P-SAC VAC 0.5 ML VIAL IM ONE (10:00)
[2017-03-16] MEDS: PROBENECID 500 MG TABLET PO SCH ×2 (10:29→20:57)
[2017-03-16] MEDS: INSULIN GLARGINE, HUMAN 1 UNIT/0.01 ML SQ SCH ×2 (11:29→20:57)
[2017-03-16 12:56] LABS: Appearance,Urine CLEAR; Bilirubin,Urine NEG (NEG); Color,Urine YELLOW; Glucose,Urine (UA) NEGATIVE (NEG); Leukocyte Esterase,Urine NEG /uL (NEG); Nitrate,Urine NEG (NEG); Protein,Urine NEG (NEG); Specific Gravity,Urine 1.011 (1.000-1.035); Urine Blood NEG mg/dL (<0.03)
--- NOTE | 2017-03-16 13:10 | Internal Med Progress Note ---
Medical - PN: Subj Patient information: Note initiated : 03/16/17 at 12:58 pm Service Date, if different from initiated Date: [] Patient: Alfredo Mccall III 61 y/o M admitted on 03/14/17 for Chest pain. Interval history: 61-YEAR-OLD MALE, PRESENTED 03/14 TO THE ED WITH CP AND SOB. 03/14: + CHEST PAIN Many risk factors present for ACS incl: HL, HTN, DM ECG baseline abnormal with BBB + SEVERE CARDIOMYOPATHY, S/P AICS PLACEMENT Uncertain whether ischemic vs non-ischemic Recent ECHO: LVEF 20%, no significant valvular abnormalities, suggestive of pulmonary hypertension + ANASARCA AND WEIGHT GAIN OF 50 LBS Uncertain etiology. Due to combination of cardiomyopathy and CKD r/o nephrotic syndrome + CHRONIC ATRIAL FIBRILLATION On coumadin + DM, POORLY CONTROLLED + HTN + HL + MORBID OBESITY WITH BMI 40 + CHRONIC KIDNEY DISEASE + CHRONIC VENOUS STASIS DERMATITIS LOWER EXTREMITIES + L FOOT ULCER Patient followed by wound clinic 03/15: CPAP HS trial not well tolerated BS low on Glargine BID dosing -------> will change to HS only Cr worsening. Nephrology consulted Troponin wnl Continue to hold Losartan for marginal BP 03/16: States he is feeling much better. Less edema. W: 312-->308 lbs Not tolerating CPAP. Dr Thompson's help appreciated. Cr improved. Tolerating Lasix 20 mg IV q 8. Will increase to 40 mg q 8 Uses 1/3 of Glargine in hospital. Stressed to need for compliance to diabetic diet. - Constitutional Vitals: Vital Signs Temp Pulse Resp BP Pulse Ox 98.5 F 89 16 114/68 96 03/16/17 06:29 03/16/17 04:00 03/16/17 06:29 03/16/17 06:29 03/16/17 06:29 Period Temp Pulse Resp BP Sys/Hernandez Pulse Ox Last 24 Hr 97.3 F-98.5 F 80-89 11-20 97-116/63-81 95-99 Intake and Output 03/15/17 03/16/17 03/16/17 21:59 05:59 13:59 Intake Total 360 / 360 360 / 360 120 / 120 Output Total 750 / 750 2825 / 2825 2049 Balance -390 / -390 -2465 / -2465 -1930 / -193 Weight 308 lb 8 oz Intake & Output: Intake & Output 03/15/17 03/16/17 03/16/17 21:59 05:59 13:59 Intake Total 360 / 360 360 / 360 120 / 120 Output Total 750 / 750 2825 / 2825 2049 Balance -390 / -390 -2465 / -2465 -193 / -1929 Weight 308 lb 8 oz Intake: Oral 360 / 360 360 / 360 120 / 120 Output: Void Amount 750 / 750 2825 / 2825 2049 # of times incontinent of urine 0 / 0 Other: # Voids 1 1 # Bowel Movements 1 0 General appearance: morbidly obese, no acute distress - Respiratory Respiratory exam: Present: normal respiratory exam - Cardiovascular Cardiovascular exam: Present: irregular rhythm - GI/Abdominal GI/Abdominal exam: Present: normal bowel sounds, soft - Extremities Exam Extremities exam: Present: pedal edema. Absent: calf tenderness Medical - PN: Obj Da - Labs CBC & Chem 7: 03/14/17 15:40 03/16/17 06:49 Labs: Abnormal Lab Results 03/16/17 03/16/17 03/16/17 11:42 06:49 03:55 Hgb Hct RDW Plt Count Lymph % (Auto) Lymph # (Auto) POC PT PT 29.8 H POC INR INR 2.7 H Chloride BUN 55 H Creatinine 1.6 H Glucose 64 L Hemoglobin A1c Total Bilirubin Alkaline Phosphatase NT-Pro-B Natriuret Pep Globulin Albumin/Globulin Ratio Urine Urobilinogen 4.0 A Urine RBC 03/15/17 03/15/17 03/15/17 15:40 10:23 07:37 Hgb Hct RDW Plt Count Lymph % (Auto) Lymph # (Auto) POC PT PT 31.0 H POC INR INR 2.9 H Chloride BUN Creatinine Glucose Hemoglobin A1c 8.0 H Total Bilirubin Alkaline Phosphatase NT-Pro-B Natriuret Pep Globulin Albumin/Globulin Ratio Urine Urobilinogen 4.0 A Urine RBC 2 H 03/14/17 03/14/17 03/14/17 19:14 15:40 15:40 Hgb Hct RDW Plt Count Lymph % (Auto) Lymph # (Auto) POC PT 39.9 H PT > 150.0 H POC INR 3.5 H INR > 20.0 H* Chloride 93 L BUN 70 H Creatinine 2.2 H Glucose 116 H Hemoglobin A1c Total Bilirubin 1.3 H Alkaline Phosphatase 379 H NT-Pro-B Natriuret Pep 1265.0 H Globulin 3.9 H Albumin/Globulin Ratio 0.8 L Urine Urobilinogen Urine RBC 03/14/17 15:40 Hgb 13.3 L Hct 40.9 L RDW 18.9 H Plt Count 130 L Lymph % (Auto) 5.8 L Lymph # (Auto) 0.4 L POC PT PT POC INR INR Chloride BUN Creatinine Glucose Hemoglobin A1c Total Bilirubin Alkaline Phosphatase NT-Pro-B Natriuret Pep Globulin Albumin/Globulin Ratio Urine Urobilinogen Urine RBC Meds: Medications Acetaminophen (Tylenol) 650 mg PO Q4-6HP PRN PRN Reason: PAIN/FEVER > 101 Hydrocodone Bitart/Acetaminophen ([place] 7.5/325mg) 1 tab PO Q4-6HP PRN PRN Reason: PAIN LEVEL 3-6 Allopurinol (Zylopriim) 300 mg PO DAILY [facility] Last Admin: 03/16/17 08:03 Dose: 300 mg Amitriptyline HCl (Elavil) 10 mg PO HS [facility] Last Admin: 03/15/17 21:26 Dose: 10 mg Aspirin (Aspirin) 81 mg PO QDAY [facility] Last Admin: 03/16/17 08:03 Dose: 81 mg Dextrose (Dextrose 50%) 0 ml IV UD PRN PRN Reason: Hypoglycemia Diagnostic Test (Pha) (Accu-Chek) 1 each FS [facility] Last Admin: 03/16/17 12:08 Dose: 1 each Digoxin (Lanoxin) 250 mcg PO DAILY@1400 [facility] Docusate Sodium (Colace) 100 mg PO BID [facility] Last Admin: 03/16/17 08:08 Dose: 100 mg Fish Oil (Fish Oil) 1,000 mg PO DAILY [facility] Last Admin: 03/16/17 08:03 Dose: 1,000 mg Furosemide (Lasix) 20 mg IV Q8 [facility] Last Admin: 03/16/17 05:35 Dose: 20 mg Glucose (Insta-Glucose) 15 gm PO PRN PRN PRN Reason: Hypoglycemia Insulin Glargine (Lantus) 20 unit SQ BID [facility] Last Admin: 03/16/17 11:29 Dose: Not Given Insulin Human Lispro (Humalog) 0 unit SQ [facility] PRN Reason: Protocol Last Admin: 03/16/17 12:09 Dose: Not Given Ketoconazole ([place] 2% Top Crm) 1 dose TOPICAL DAILY [facility] Last Admin: 03/16/17 08:10 Dose: Not Given Magnesium Oxide (Magnesium Oxide) 400 mg PO DAILY [facility] Last Admin: 03/16/17 08:03 Dose: 400 mg Nystatin (Nystatin) 1 dose TOPICAL BID [facility] Last Admin: 03/16/17 08:10 Dose: 1 dose Ondansetron HCl (Zofran) 4 mg IV Q4-6HP PRN PRN Reason: Nausea And Vomiting Probenecid (Probenecid) 250 mg PO BID [facility] Last Admin: 03/16/17 10:29 Dose: Not Given Simvastatin (Zocor) 40 mg PO HS [facility] Last Admin: 03/15/17 21:26 Dose: 40 mg Sodium Chloride (Saline Flush) 10 ml IV Q8 [facility] Last Admin: 03/16/17 05:36 Dose: 10 ml Spironolactone (Aldactone) 12.5 mg PO BIDD [facility] Last Admin: 03/16/17 08:04 Dose: 12.5 mg Warfarin Sodium (Coumadin Per Pharmacy) 1 order PO DAILY@1400 [facility] Warfarin Sodium (Coumadin) 3 mg PO ONCE@1400 ONE Stop: 03/16/17 14:01 Zolpidem Tartrate (Ambien) 5 mg PO HSP PRN PRN Reason: Insomnia Medical - PN: A/P - Time Spent With Patient Total time spent is greater than 50% in coordination of care (as documented) at patient's floor/unit and/or counseling patient: less than 15 minutes (1) Anasarca associated with disorder of kidney Status: Acute Current Visit: Yes - Narrative A/P Narrative: 61-YEAR-OLD MALE, PRESENTED 03/14 TO THE ED WITH CP AND SOB. MEDICAL PROBLEMS: + CHEST PAIN Many risk factors present for ACS incl: HL, HTN, DM ECG baseline abnormal with BBB Troponin negative. Stable will tx to [facility] + SEVERE CARDIOMYOPATHY, S/P AICS PLACEMENT Uncertain whether ischemic vs non-ischemic Recent ECHO: LVEF 20%, no significant valvular abnormalities, suggestive of pulmonary hypertension + ANASARCA AND WEIGHT GAIN OF 50 LBS Uncertain etiology. Due to combination of cardiomyopathy and CKD r/o nephrotic syndrome + CHRONIC ATRIAL FIBRILLATION On coumadin + DM, POORLY CONTROLLED Has been requiring less Glargine in hospital + HTN Losartan was on hold for low BP 03/16 will restart at lower dose + HL + MORBID OBESITY WITH BMI 40 + Acute on CHRONIC KIDNEY DISEASE?CARDIORENAL SX Improving. Lasix IV appears more effective than po at larger dose. Appreciate dr Thompson's help + CHRONIC VENOUS STASIS DERMATITIS LOWER EXTREMITIES Less edema. Lost 4 lbs. ESTEBAN wrapped. + L FOOT ULCER Patient followed by wound clinic No signs of infection. 03/15 PLAN: Glargine dose reduced Losartan continue hold Lasix dose adjusted by renal (dr Thompson) Tx to med floor 03/16 PLAN: Tolerating Lasix 20 mg IV q 8. Will increase to 40 mg q 8 Restart Losartan, at lower dose Will d/c CPAP, not well tolerated x 2 nights. Medical - PN: Qual - VTE Deep Vein Thrombosis/Pulmonary Embolism Present on Admission: No
[2017-03-16] MEDS ORDERED: WARFARIN 3 MG TABLET PO ONE (14:00)
[2017-03-16] MEDS: DIGOXIN 125 MCG TABLET PO SCH (15:12)
[2017-03-16] MEDS: SIMVASTATIN 20 MG TABLET PO SCH (20:57)
[2017-03-16] MEDS: AMITRIPTYLINE 10 MG TABLET PO SCH (20:57)
[2017-03-17 04:59] LABS: Albumin 3.5 gm/dL (3.2-5.2)
[2017-03-17] MEDS: FUROSEMIDE 20 MG/2 ML VIAL IV SCH ×2 (06:08→14:35)
[2017-03-17] MEDS: 0.9 % SODIUM CHLORIDE 10 ML SYRINGE IV SCH ×3 (06:08→22:01)
[2017-03-17] MEDS: INSULIN LISPRO 1 UNIT/0.01 ML UNIT SQ SCH ×4 (09:10→23:46)
[2017-03-17] MEDS: INSULIN GLARGINE, HUMAN 1 UNIT/0.01 ML SQ SCH ×2 (09:10→22:02)
[2017-03-17] MEDS: LOSARTAN 25 MG TABLET PO SCH (09:11)
[2017-03-17] MEDS: SPIRONOLACTONE 25 MG TABLET PO SCH ×2 (09:11→16:34)
[2017-03-17] MEDS: ASPIRIN 81 MG TAB.CHEW PO SCH (09:11)
[2017-03-17] MEDS: DOCUSATE SODIUM 100 MG CAPSULE PO SCH ×2 (09:11→22:01)
[2017-03-17] MEDS: FISH OIL 1,000 MG CAPSULE PO SCH (09:11)
[2017-03-17] MEDS: MAGNESIUM OXIDE 400 MG TABLET PO SCH (09:11)
[2017-03-17] MEDS: ALLOPURINOL 300 MG TABLET PO SCH (09:11)
[2017-03-17] MEDS: PROBENECID 500 MG TABLET PO SCH ×2 (09:19→21:58)
[2017-03-17] MEDS: NYSTATIN POWDER BOTTLE 15GM TOPICAL SCH ×2 (09:21→22:01)
--- NOTE | 2017-03-17 11:39 | Internal Med Progress Note ---
Medical - PN: Subj Patient information: Note initiated : 03/17/17 at 11:38 am Service Date, if different from initiated Date: [] Patient: Alfredo Mccall III 61 y/o M admitted on 03/14/17 for Chest pain. Chief Complaint: [] Interval history: 61-YEAR-OLD MALE, PRESENTED 03/14 TO THE ED WITH CP AND SOB. 03/15: CPAP HS trial not well tolerated BS low on Glargine BID dosing -------> will change to HS only Cr worsening. Nephrology consulted Troponin wnl Continue to hold Losartan for marginal BP 03/16: States he is feeling much better. Less edema. W: 312-->308 lbs Not tolerating CPAP. Dr Thompson's help appreciated. Cr improved. Tolerating Lasix 20 mg IV q 8. Will increase to 40 mg q 8 Uses 1/3 of Glargine in hospital. Stressed to need for compliance to diabetic diet. 03/17-atient doing well. No overnight events. Diuresing well. over 13,000 cc net negative fluid loss from diuresis. No significant electrolyte abnormalities.creatinine 1.3.nephrology on board. INR 2.1. - Constitutional Vitals: Vital Signs Temp Pulse Resp BP Pulse Ox 97.7 F 80 16 124/78 96 03/17/17 06:21 03/17/17 04:00 03/17/17 06:21 03/17/17 06:21 03/17/17 06:21 Period Temp Pulse Resp BP Sys/Hernandez Pulse Ox Last 24 Hr 97.5 F-98.3 F 80-88 - 116-124/68-78 94-97 Intake and Output 03/16/17 03/17/17 03/17/17 21:59 05:59 13:59 Intake Total 1130 / 1130 360 / 360 120 / 120 Output Total 3450 / 3450 2250 / 2250 3475 / 3475 Balance -2320 / -2320 -1890 / -1890 -3355 / -3355 Weight 290 lb 8 oz Intake & Output: Intake & Output 03/16/17 03/17/17 03/17/17 21:59 05:59 13:59 Intake Total 1130 / 1130 360 / 360 120 / 120 Output Total 3450 / 3450 2250 / 2250 3475 / 3475 Balance -2320 / -2320 -1890 / -1890 -3355 / -3355 Weight 290 lb 8 oz Intake: Oral 1130 / 1130 360 / 360 120 / 120 Output: Void Amount 3450 / 3450 2250 / 2250 3475 / 3475 # of times incontinent of urine 0 / 0 0 / 0 Other: Meal Dinner Percent of Meal Consumed 100% Feeding Ability Independent # Voids 1 1 # Bowel Movements 0 General appearance: no acute distress Exam: lymphedema clinically resolved Nondistended abdomen No anxiety Nonlabored breathing Medical - PN: Obj Da - Labs CBC & Chem 7: 03/14/17 15:40 03/17/17 03:52 Labs: Abnormal Lab Results 03/17/17 03/17/17 03/16/17 03:52 03:52 11:42 Hgb Hct RDW Plt Count Lymph % (Auto) Lymph # (Auto) POC PT PT 24.1 H POC INR INR 2.1 H Chloride BUN 45 H Creatinine 1.3 H Glucose 153 H Hemoglobin A1c Total Bilirubin Alkaline Phosphatase NT-Pro-B Natriuret Pep Globulin Albumin/Globulin Ratio Urine Urobilinogen 4.0 A Urine RBC 03/16/17 03/16/17 03/15/17 06:49 03:55 15:40 Hgb Hct RDW Plt Count Lymph % (Auto) Lymph # (Auto) POC PT PT 29.8 H POC INR INR 2.7 H Chloride BUN 55 H Creatinine 1.6 H Glucose 64 L Hemoglobin A1c 8.0 H Total Bilirubin Alkaline Phosphatase NT-Pro-B Natriuret Pep Globulin Albumin/Globulin Ratio Urine Urobilinogen Urine RBC 03/15/17 03/15/17 03/14/17 10:23 07:37 19:14 Hgb Hct RDW Plt Count Lymph % (Auto) Lymph # (Auto) POC PT 39.9 H PT 31.0 H POC INR 3.5 H INR 2.9 H Chloride BUN Creatinine Glucose Hemoglobin A1c Total Bilirubin Alkaline Phosphatase NT-Pro-B Natriuret Pep Globulin Albumin/Globulin Ratio Urine Urobilinogen 4.0 A Urine RBC 2 H 03/14/17 03/14/17 03/14/17 15:40 15:40 15:40 Hgb 13.3 L Hct 40.9 L RDW 18.9 H Plt Count 130 L Lymph % (Auto) 5.8 L Lymph # (Auto) 0.4 L POC PT PT > 150.0 H POC INR INR > 20.0 H* Chloride 93 L BUN 70 H Creatinine 2.2 H Glucose 116 H Hemoglobin A1c Total Bilirubin 1.3 H Alkaline Phosphatase 379 H NT-Pro-B Natriuret Pep 1265.0 H Globulin 3.9 H Albumin/Globulin Ratio 0.8 L Urine Urobilinogen Urine RBC Meds: Medications Acetaminophen (Tylenol) 650 mg PO Q4-6HP PRN PRN Reason: PAIN/FEVER > 101 Hydrocodone Bitart/Acetaminophen ([place] 7.5/325mg) 1 tab PO Q4-6HP PRN PRN Reason: PAIN LEVEL 3-6 Allopurinol (Zylopriim) 300 mg PO DAILY [facility] Last Admin: 03/17/17 09:11 Dose: 300 mg Amitriptyline HCl (Elavil) 10 mg PO HS [facility] Last Admin: 03/16/17 20:57 Dose: 10 mg Aspirin (Aspirin) 81 mg PO QDAY [facility] Last Admin: 03/17/17 09:11 Dose: 81 mg Dextrose (Dextrose 50%) 0 ml IV UD PRN PRN Reason: Hypoglycemia Diagnostic Test (Pha) (Accu-Chek) 1 each FS ACHS [facility] Last Admin: 03/17/17 09:08 Dose: 1 each Digoxin (Lanoxin) 250 mcg PO DAILY@1400 [facility] Last Admin: 03/16/17 15:12 Dose: 250 mcg Docusate Sodium (Colace) 100 mg PO BID [facility] Last Admin: 03/17/17 09:11 Dose: 100 mg Fish Oil (Fish Oil) 1,000 mg PO DAILY [facility] Last Admin: 03/17/17 09:11 Dose: 1,000 mg Furosemide (Lasix) 40 mg IV Q8 [facility] Last Admin: 03/17/17 06:08 Dose: 40 mg Glucose (Insta-Glucose) 15 gm PO PRN PRN PRN Reason: Hypoglycemia Insulin Glargine (Lantus) 20 unit SQ BID [facility] Last Admin: 03/17/17 09:10 Dose: 20 unit Insulin Human Lispro (Humalog) 0 unit SQ ACHS [facility] PRN Reason: Protocol Last Admin: 03/17/17 09:10 Dose: 3 unit Ketoconazole (Nizoral 2% Top Crm) 1 dose TOPICAL DAILY [facility] Last Admin: 03/16/17 08:10 Dose: Not Given Losartan Potassium (Cozaar) 25 mg PO DAILY [facility] Last Admin: 03/17/17 09:11 Dose: 25 mg Magnesium Oxide (Magnesium Oxide) 400 mg PO DAILY [facility] Last Admin: 03/17/17 09:11 Dose: 400 mg Nystatin (Nystatin) 1 dose TOPICAL BID [facility] Last Admin: 03/17/17 09:21 Dose: 1 dose Ondansetron HCl (Zofran) 4 mg IV Q4-6HP PRN PRN Reason: Nausea And Vomiting Probenecid (Probenecid) 250 mg PO BID [facility] Last Admin: 03/17/17 09:19 Dose: 250 mg Simvastatin (Zocor) 40 mg PO HS [facility] Last Admin: 03/16/17 20:57 Dose: 40 mg Sodium Chloride (Saline Flush) 10 ml IV Q8 [facility] Last Admin: 03/17/17 06:08 Dose: 10 ml Spironolactone (Aldactone) 12.5 mg PO BIDD [facility] Last Admin: 03/17/17 09:11 Dose: 12.5 mg Warfarin Sodium (Coumadin Per Pharmacy) 1 order PO DAILY@1400 [facility] Last Admin: 03/16/17 15:13 Dose: 1 order Warfarin Sodium (Coumadin) 8 mg PO ONCE@1400 ONE Stop: 03/17/17 14:01 Zolpidem Tartrate (Ambien) 5 mg PO HSP PRN PRN Reason: Insomnia Medical - PN: A/P - Time Spent With Patient Total time spent is greater than 50% in coordination of care (as documented) at patient's floor/unit and/or counseling patient: 25 - 35 minutes - Narrative A/P Narrative: 61-YEAR-OLD MALE, PRESENTED 03/14 TO THE ED WITH CP AND SOB. * NYHA class III systolic heart failure with EF 20%- Post AICD placement.continue losartan/spironolactone continue diuresis * anasarca clinically improved with 13 L net negative fluid balance * Chronic AF with controlled. INR therapeutic. continue digoxin * HTN-on losartan * DM type II on basal prandial insulin * History of CAD on aspirin/losartan/spironolactone * Anticoagulation on Coumadin INR 2.11. * history of gout on probenecid/allopurinol * Hyperlipidemia on statin * chronic lower extremity stasis dermatitis secondary to lymphedema clinically improved * Left foot ulcer managed by wound care. Podiatry consult and * full code plan * continue diuresis * Pre-existing medical condition management as above * possible discharge in 24-48 hours Medical - PN: Qual - VTE Deep Vein Thrombosis/Pulmonary Embolism Present on Admission: No
[2017-03-17] MEDS ORDERED: WARFARIN 4 MG TABLET PO ONE (14:00)
[2017-03-17] MEDS: DIGOXIN 125 MCG TABLET PO SCH (14:36)
[2017-03-17] MEDS: KETOCONAZOLE 2% TOP CRM 15GM TUBE TOPICAL SCH (14:38)
--- NOTE | 2017-03-17 16:11 | Orthopedic Consult Note ---
History of Present Illness - [facility] Patient information: Note initiated : 03/17/17 at 4:08 pm Service Date, if different from initiated Date: [] Patient: Alfredo Mccall III 61 y/o M admitted on 03/14/17 for Chest pain. Chief Complaint: [foot wound] Consult date: 03/17/17 Consult reason: other (foot ulcer) History of present illness: Long-standing history of recurrent foot ulcerations. Currently the only method that has controlled the ulcerations has been total contact casting of foot. Referred patient to have custom [employer] boot fabricated. He has not obtained the boot to date. He does not have pain to the area. He does not want to take time off of work to have the foot worked on in the OR. Review of Systems Constitutional: as per [facility] Medications and Allergies Home Medications Medication Instructions Recorded Confirmed Type allopurinol 300 mg tablet 300 mg PO QDAY tab 10/07/14 03/15/17 History amitriptyline 10 mg tablet 10 mg PO QHS tab 10/07/14 03/15/17 History aspirin 81 mg chewable tablet 81 mg PO QDAY tab 10/07/14 03/15/17 History insulin aspart 100 unit/mL 80 unit SUB-Q .COMPLEX PRN ml 10/07/14 03/15/17 History subcutaneous pen fenofibrate 54 mg tablet 54 mg PO QDAY #30 tab 07/11/15 03/16/17 Rx insulin glargine 100 unit/mL 30 unit SUB-Q BID ml 11/13/15 03/15/17 History subcutaneous solution albuterol sulfate HFA 90 See Label Instructions INHALATION 09/27/16 03/15/17 History mcg/actuation aerosol inhaler .Q4-6H PRN g digoxin 250 mcg tablet 250 mcg PO QHS tab 09/27/16 03/15/17 History magnesium oxide 420 mg tablet 420 mg PO QDAY 09/27/16 03/15/17 History HYDROcodone/APAP 5/325MG [[place] 1 tab PO Q4HP PRN #20 tab 03/01/17 03/15/17 Rx 5/325Mg] Ketoconazole 2% Top Crm 1 dose TOPICAL DAILY 03/15/17 03/15/17 History Loratadine [Loradamed] 10 mg PO BID 03/15/17 03/15/17 History Losartan Potassium [Cozaar] 25 mg PO QDAY 03/15/17 03/15/17 History Metoprolol Succinate [Toprol Xl] 75 mg PO BID 03/15/17 03/15/17 History Nystatin [Nyata] 1 dose TOPICAL DAILY 03/15/17 03/15/17 History [place]-3/Dha/Epa/Fish Oil [Fish Oil 1,000 mg PO BID 03/15/17 03/15/17 History 1,000 mg Softgel] Probenecid [Probenecid] 250 mg PO BID 03/15/17 03/15/17 History Simvastatin [Zocor] 40 mg PO HS 03/15/17 03/15/17 History Spironolactone [Aldactone] 12.5 mg PO BIDD 03/15/17 03/15/17 History Torsemide [Demadex] 20 mg PO DAILY@1700 03/15/17 03/15/17 History Torsemide [Demadex] 40 mg PO BID@08,1200 03/15/17 03/15/17 History Warfarin [Coumadin] 8 mg PO DAILY@1400 03/15/17 03/15/17 History Allergies Allergy/AdvReac Type Severity Reaction Status Date / Time lactose Allergy Unknown Unknown Verified 02/27/17 14:59 adhesive Tape Allergy Unknown Rash Uncoded 09/27/16 14:31 Physical Examination - Ankle & Foot left Foot appearance: other (Left, Plantar Metatarsal head first is a chronic Joshi Grade 2 Diabetic Ulcer and has received a status of Not Healed. Subsequent wound encounter measurements are 0.1cm length x 0.2cm width x 0.1cm depth, with an area of 0 sq cm and a volume of 0 cubic cm. No tunneling has been noted. No sinus tract has been noted. No undermining has been noted. There was no drainage noted. The patient reports no wound pain due to the wound being insensate. The wound margin is flat and intact. Wound bed has 76-100% epithelialization, no granulation; no slough and no eschar present. There is no change noted in the wound progression. Assessmen: Pressure Ulceration Joshi stage 1 Left foot second metatarsal Plan: Partial weight bearing to extremity, Dry/sterile gauze during stay. Return to clinic for application of total contact cast when discharged.)
--- NOTE | 2017-03-17 16:26 | Nephrology Progress Note ---
Subjective Patient information: Note initiated : 03/17/17 at 4:04 pm Service Date, if different from initiated Date: [] Patient: Alfredo Mccall III 61 y/o M admitted on 03/14/17 for Chest pain. Chief Complaint: [] Principal diagnosis: CHF/anasarca Interval history: EDEMA MUCH IMPROVED, DID RESPOND WELL TO iv DIURETICS AND FLUID RESTRICTION Renal function is improving no SOB denies dizziness, Bp is stable no GI issues does have LE wound again and podiatry has been consulted no other concerns Pertinent ROS: as above Objective - Vital Signs Vital signs: Vital Signs Temp Pulse Resp BP BP Pulse Ox 03/17/17 15:26 97.0 F 16 121/77 97 03/17/17 12:00 97.4 F 16 119/70 98 03/17/17 06:21 97.7 F 16 124/78 96 03/17/17 04:00 98.0 F 80 18 116/68 97 03/16/17 23:01 98.3 F 88 14 120/73 97 03/16/17 19:18 97.5 F 86 14 121/71 96 Intake and Output 03/17/17 03/17/17 03/17/17 05:59 13:59 21:59 Intake Total 360 / 360 360 / 360 300 / 300 Output Total 2250 / 2250 4400 / 4400 675 / 675 Balance -1890 / -1890 -4040 / -4040 -375 / -375 Intake: Oral 360 / 360 360 / 360 300 / 300 Output: Void Amount 2250 / 2250 4400 / 4400 675 / 675 # of times incontinent of urine 0 / 0 Other: Meal Lunch Percent of Meal Consumed 100% 100% # Voids 1 1 # Bowel Movements 0 Weight 290 lb 8 oz Patient Weight 03/18/17 05:59 Weight 290 lb 8 oz Intake & Output: Intake & Output 03/17/17 03/17/17 03/17/17 05:59 13:59 21:59 Intake Total 360 / 360 360 / 360 300 / 300 Output Total 2250 / 2250 4400 / 4400 675 / 675 Balance -1890 / -1890 -4040 / -4040 -375 / -375 Weight 290 lb 8 oz Intake: Oral 360 / 360 360 / 360 300 / 300 Output: Void Amount 2250 / 2250 4400 / 4400 675 / 675 # of times incontinent of urine 0 / 0 Other: Meal Lunch Percent of Meal Consumed 100% 100% # Voids 1 1 # Bowel Movements 0 - General Appearance General appearance: appears started age, obese EENT: mucous membranes moist Neck: no JVD Respiratory: clear Cardiology: no rub, edema (much improved ), normal S1, normal S2 Gastrointestinal: no tenderness, no guarding Integumentary: no rash, warm and dry Neurologic: alert and oriented x3 Musculoskeletal: no erythema, no cyanosis Psychiatric: mood/affect appropriate - Lab 03/14/17 15:40 03/17/17 03:52 Most recent lab results Calcium 9.5 mg/dl (8.6-10.4) 03/17/17 03:52 Phosphorus 3.8 mg/dL (2.7-4.5) 03/17/17 03:52 Magnesium 2.0 mg/dL (1.6-2.5) 03/17/17 03:52 Assessment and Plan (1) Acute on chronic renal failure acute on chronic renal failure [facility] ardio renal syndrome renal function has improved with diuresis given his I/O Balance will cut back on lasix to 40mg iv bid ct losartan and aldactone would recommend on discharging on torsemide 20mg bid will follow in 7-10 days on discharge to ensure fluid status remains stable did request dietitian consult, he need to be educated about low sodium diet as I think this contributed greatly to diuretic resistant also advised fluid restriction to 1.5L/day Will follow along Thank you for giving me an opportunity to participate in Mr Mccall's medical care, appreciate it Status: Acute (2) Congestive heart failure Status: Acute
[2017-03-17] MEDS: AMITRIPTYLINE 10 MG TABLET PO SCH (22:01)
[2017-03-17] MEDS: SIMVASTATIN 20 MG TABLET PO SCH (22:01)
[2017-03-18] MEDS: HYDROCODONE/APAP 7.5/325MG TABLET PO PRN ×2 (01:36→14:08)
[2017-03-18] MEDS: 0.9 % SODIUM CHLORIDE 10 ML SYRINGE IV SCH (05:31)
[2017-03-18] MEDS ORDERED: FUROSEMIDE 20 MG/2 ML VIAL IV SCH (08:00)
[2017-03-18] MEDS: ASPIRIN 81 MG TAB.CHEW PO SCH (08:57)
[2017-03-18] MEDS: SPIRONOLACTONE 25 MG TABLET PO SCH (08:58)
[2017-03-18] MEDS: ALLOPURINOL 300 MG TABLET PO SCH (08:58)
[2017-03-18] MEDS: LOSARTAN 25 MG TABLET PO SCH (08:58)
[2017-03-18] MEDS: FISH OIL 1,000 MG CAPSULE PO SCH (08:58)
[2017-03-18] MEDS: MAGNESIUM OXIDE 400 MG TABLET PO SCH (08:58)
[2017-03-18] MEDS: DOCUSATE SODIUM 100 MG CAPSULE PO SCH (08:58)
[2017-03-18] MEDS: INSULIN GLARGINE, HUMAN 1 UNIT/0.01 ML SQ SCH (08:59)
[2017-03-18] MEDS: INSULIN LISPRO 1 UNIT/0.01 ML UNIT SQ SCH ×2 (09:00→12:30)
[2017-03-18] MEDS: KETOCONAZOLE 2% TOP CRM 15GM TUBE TOPICAL SCH (09:11)
--- NOTE | 2017-03-18 10:22 | Discharge Summary ---
Medical - DS: Prov Patient information: Note initiated : 03/18/17 at 10:18 am Service Date, if different from initiated Date: [] Patient: Alfredo Mccall III 61 y/o M admitted on 03/14/17 for Chest pain. Chief Complaint: [] Date of admission: 03/14/17 21:38 Discharge date: 03/18/17 Primary care physician: Belen Osman Consults: 03/14/17 20:03 Consult to Physician [CONS] Stat Comment: Consulting Provider: Lenin Bone Reason For Exam: Physician to Consult 03/15/17 08:48 Consult to Physician [CONS] Routine Comment: Consulting Provider: Leidy Thompson Reason For Exam: Physician to Consult 03/17/17 09:33 Consult to Physician [CONS] Routine Comment: Consulting Provider: Cameron Carney Reason For Exam: Physician to Consult Medical - DS: Meds - Discharge Medications Prescriptions: Torsemide [Demadex] 20 mg PO BID #60 tab Active and Home Medications: Home Medications allopurinol 300 mg tablet 300 mg PO QDAY tab 10/07/14 [History Confirmed Last Taken 03/14/17 08:00] amitriptyline 10 mg tablet 10 mg PO QHS tab 10/07/14 [History Confirmed Last Taken 03/13/17 20:00] aspirin 81 mg chewable tablet 81 mg PO QDAY tab 10/07/14 [History Confirmed Last Taken 03/14/17 08:00] insulin aspart 100 unit/mL subcutaneous pen 80 unit SUB-Q .COMPLEX PRN ml 10/07 [History Confirmed 03/15/17 Last Taken 03/12/17] fenofibrate 54 mg tablet 54 mg PO QDAY #30 tab 07/11/15 [Rx Confirmed 03/16/17 Last Taken Unknown] insulin glargine 100 unit/mL subcutaneous solution 30 unit SUB-Q BID ml [History Confirmed 03/15/17 Last Taken 03/14/17 08:00] albuterol sulfate HFA 90 mcg/actuation aerosol inhaler See Label Instructions INHALATION .Q4-6H PRN g 09/27/16 [History Confirmed 03/15/17 Last Taken 12:00] digoxin 250 mcg tablet 250 mcg PO QHS tab 09/27/16 [History Confirmed 03/15/17 Last Taken 03/14/17 08:00] magnesium oxide 420 mg tablet 420 mg PO QDAY 09/27/16 [History Confirmed Last Taken 03/14/17 08:00] HYDROcodone/APAP 5/325MG [[place] 5/325Mg] 1 tab PO Q4HP PRN #20 tab 03/01/17 [Rx Confirmed 03/15/17 Last Taken 03/13/17 22:00] Ketoconazole 2% Top Crm 1 dose TOPICAL DAILY 03/15/17 [History Confirmed Last Taken Unknown] Loratadine [Loradamed] 10 mg PO BID 03/15/17 [History Confirmed 03/15/17 Last Taken Unknown] Losartan Potassium [Cozaar] 25 mg PO QDAY 03/15/17 [History Confirmed 03/15/17 Last Taken 03/13/17 20:00] Metoprolol Succinate [Toprol Xl] 75 mg PO BID 03/15/17 [History Confirmed Last Taken Unknown] Nystatin [Nyata] 1 dose TOPICAL DAILY 03/15/17 [History Confirmed 03/15/17 Last Taken Unknown] [place]-3/Dha/Epa/Fish Oil [Fish Oil 1,000 mg Softgel] 1,000 mg PO BID 03/15/17 [ History Confirmed 03/15/17 Last Taken Unknown] Probenecid 250 mg PO BID 03/15/17 [History Confirmed 03/15/17 Last Taken Unknown ] Simvastatin [Zocor] 40 mg PO HS 03/15/17 [History Confirmed 03/15/17 Last Taken Unknown] Spironolactone [Aldactone] 12.5 mg PO BIDD 03/15/17 [History Confirmed 03/15/17 Last Taken Unknown] Torsemide [Demadex] 40 mg PO BID@08,1200 03/15/17 [History Confirmed 03/15/17 Last Taken 03/14/17 08:00] Warfarin [Coumadin] 8 mg PO DAILY@1400 03/15/17 [History Confirmed 03/15/17 Last Taken Unknown] Torsemide [Demadex] 20 mg PO BID #60 tab 03/18/17 [Rx Last Taken Unknown] Medical - DS: Hosp Hospital course: Discharge diagnosis * NYHA class III systolic heart filure with EF 20%- clinically back to baseline. continue losartan/spironolactone, continue outpatient diuretics. post AICD * Anasarca clinicallyresolved with over 45 pound net negative fluid balance * Chronic AF with controlled. INR therapeutic. continue digoxin * HTN-on losartan * DM type II on basal prandial insulin * History of CAD on aspirin/losartan/spironolactone * Anticoagulation on Coumadin INR 2.1 * history of gout on probenecid/allopurinol * Hyperlipidemia on statin * chronic lower extremity stasis dermatitis secondary to lymphedema clinically improved * Left foot ulcer managed by wound care. follow podiatry/outpatient wound care Brief hospital course 61-YEAR-OLD MALE, PRESENTED 03/14 TO THE ED WITH CP AND SOB. 03/15: CPAP HS trial not well tolerated BS low on Glargine BID dosing -------> will change to HS only Cr worsening. Nephrology consulted Troponin wnl Continue to hold Losartan for marginal BP 03/16: States he is feeling much better. Less edema. W: 312-->308 lbs Not tolerating CPAP. Dr Thompson's help appreciated. Cr improved. Tolerating Lasix 20 mg IV q 8. Will increase to 40 mg q 8 Uses 1/3 of Glargine in hospital. Stressed to need for compliance to diabetic diet. 03/17-atient doing well. No overnight events. Diuresing well. over 13,000 cc net negative fluid loss from diuresis. No significant electrolyte abnormalities.creatinine 1.3.nephrology on board. INR 2.1. 03/18-over 45 pound negative fluid balance. Patient feels at baseline. Lymphedema resolved. As per nephrology recommendation discharging on twice daily torsemide along with Aldactone and losartan. Continue follow-up with wound care/podiatry as outpatient. Continue PCP/nephrology follow-up is advised. Discharge instructionsas below Discharge diagnosis: . - Time Spent with Patient Total time spent providing and/or coordinating discharge services: Greater than 30 minutes Medical - DS: Exam - Constitutional Vitals: Vital Signs Temp Pulse Resp BP BP Pulse Ox 03/18/17 08:00 97.1 F 60 16 104/60 93 03/18/17 04:00 97.5 F 84 14 120/75 95 03/17/17 23:31 97.6 F 85 14 134/73 94 03/17/17 19:56 97.5 F 80 12 122/78 96 03/17/17 15:26 97.0 F 16 121/77 97 03/17/17 12:00 97.4 F 16 119/70 98 Intake and Output 03/17/17 03/18/17 03/18/17 21:59 05:59 13:59 Intake Total 420 / 420 480 / 480 Output Total 3125 / 3125 1350 / 1350 Balance -2705 / -2705 -870 / -870 Intake: Oral 420 / 420 480 / 480 Output: Void Amount 3125 / 3125 1350 / 1350 Other: Meal Dinner Percent of Meal Consumed 100% # Voids 1 Weight 268 lb Medical - DS: Data Labs on day of discharge: Labs from last 24 hours 03/18/17 04:43 PT 22.3 H INR 1.9 H Medical - DS: A/P - Patient/Caregiver Discharge Instructions Activity: increase activity as tolerated Diet: Low Sodium (2gm) Additional Instructions: Follow-up PCP in 5 days F/u wound care/podiatry for wound management I recommend primary care physician to check CBC BMP as a posthospital follow-up daily weights measurements and take additional 20 mg torsemide for 3 days if weight gain over 4 pounds over baseline or worsening shortness of breath and call primary care physician if inadequate response to Lasix Continue aggressive PT OT evaluation and treatment at SNF. ST eval and treatment if indicated All meals on chair sitting upright at 90 degrees to prevent aspiration Continue diet and activity as advised Discussed importance of medication adherence Please review medication list with patient prior to discharge Please schedule follow-up with PCP/Providers prior to discharge and provide printouts CC- PCP Prescriptions: Torsemide [Demadex] 20 mg PO BID #60 tab - Follow up Plan Follow up with: Belen Osman [Primary Care Provider] - Disposition: Home, Self-Care Prognosis: Fair Rehab Potential: Undetermined I certify that the patient requires SNF services: No Overall status at discharge: patient is back to baseline Medical - DS: Qual - VTE Deep Vein Thrombosis/Pulmonary Embolism Present on Admission: No
[2017-03-18] MEDS: NYSTATIN POWDER BOTTLE 15GM TOPICAL SCH (12:28)
[2017-03-18] MEDS ORDERED: WARFARIN 4 MG TABLET PO ONE (14:00)
== END 2017-03-18 14:50 | disposition home or self-care (01) | DRG 291 ==
LOC: ED 15:24 → ICU 21:38 → MEDSUR 03-15 18:59
PROVIDERS: ADMIT Specialist; ATTEND Internal Medicine

== ENCOUNTER 2018-11-25 14:42 | Inpatient (IN) ==
[2018-11-25] MEDS ORDERED: 0.9 % SODIUM CHLORIDE 250 ML IV ONE ×3 (15:09→18:11)
--- NOTE | 2018-11-25 15:17 | Emergency Department Note ---
General Adult HPI - General Chief complaint: Weakness Stated complaint: Weakness, wounds, diarrhea Time Seen by Provider: 11/25/18 14:50 Source: patient Mode of arrival: ambulatory Limitations: no limitations - History of Present Illness HPI Narrative: 63-year-old male [facility] for hypotension and generally not doing well. Upon arrival patient complains of multiple items including having a platelet of cotton stuck in his ear, worsening skin wounds to his fingertips, neuropathy, weakness, shortness of breath. She denies any associated fever, sweats, chills. He denies any sinus congestion, runny nose, or cough. She admits to shortness of breath. He denies retrosternal chest pain. He does have exquisite cardiac history of CHF resulting in a implantable defibrillator/pacemaker. He is currently on the heart transplant list through [place]. He denies any abdominal pain, nausea, vo miting, or diarrhea. He admits to decreased sensation pretty's neuropathy) through out his hands and both his feet. He does have multiple nonhealing skin ulcers to his right lower extremity that is being evaluated by the physician coding specialist here at [facility]. He tells me he was just evaluated by wound care earlier today. Concerning the wounds to his fingertips. These are been ongoing for last 5 months. He's failed to mention that to his physician coding specialist. A review of his active problem list is extensive but shows the following: UTI, URI, nausea, hypotension, anasarca, skin wounds, diabetic foot ulcers, type 2 diabetes, glaucoma, liver disease, chronic pain, stage IV chronic kidney di sease, history of anterior myocardial infarction, hypertension, dyslipidemia, CVA, A. fib, and asthma. - Related Data Home Medications Medication Instructions Recorded Confirmed amitriptyline 10 mg tablet 10 mg PO QHS tab 10/07/14 07/14/18 aspirin 81 mg chewable tablet 81 mg PO QDAY tab 10/07/14 07/14/18 albuterol sulfate 90 mcg/actuation See Rx Instructions INHALATION 09/27/16 07/14/18 aerosol inhaler .Q4-6H PRN g Metoprolol Succinate [Toprol Xl] 75 mg PO BID 03/15/17 07/14/18 [place]-3/Dha/Epa/Fish Oil [Fish Oil 1,000 mg PO BID 03/15/17 07/14/18 1,000 mg Softgel] Probenecid 250 mg PO BID 03/15/17 07/14/18 Simvastatin [Zocor] 40 mg PO HS 03/15/17 07/14/18 warfarin 4 mg tablet 7 mg PO DAILY@1400 tab 04/01/17 07/14/18 digoxin 125 mcg tablet 0.125 mg PO QDAY 02/05/18 07/14/18 allopurinol 300 mg tablet 150 mg PO QDAY tab 04/02/18 07/14/18 insulin glargine 100) 100 unit/mL 30 unit SUB-Q BID ml 04/02/18 07/14/18 subcutaneous solution sacubitril 24 mg-valsartan 26 mg 1 tab PO BID 04/02/18 07/14/18 tablet torsemide 20 mg tablet 20 mg PO QDAY tab 05/07/18 07/14/18 insulin aspart U-100 100 unit/mL 12 unit SUB-Q .COMPLEX PRN ml 07/14/18 07/14/18 (3 mL) subcutaneous pen Previous Rx's Medication Instructions Recorded Cephalexin [Keflex] 500 mg PO QID #30 cap 09/11/18 Sulfamethoxazole/Trimethoprim 1 tab PO BID #14 tab 09/11/18 [Bactrim Ds] Allergies Allergy/AdvReac Type Severity Reaction Status Date / Time lactose Allergy Unknown Unknown Verified 11/25/18 14:42 adhesive Tape Allergy Unknown Rash Uncoded 05/07/18 10:47 Review of Systems All systems ED: reviewed and negative except as stated. Past Medical History - Past Medical History Medical history: Reports: asthma, DM, hyperlipidemia, hypertension, kidney st ones, myocardial infarction, obesity, TIA, other Psychiatric history: Reports: anxiety Surgical history ED: Reports: other - Social History smoking status: Never smoker Alcohol use: Reports: None Drug use: Reports: none Physical Exam Limitations: no limitations General appearance: alert, in no apparent distress Head: atraumatic, normocephalic Eye: Present: normal appearance, PERRL, EOMI. Absent: scleral icterus, conjunctival injection ENT: Present: normal oropharynx, mucous membranes moist. Absent: TM's normal bilaterally (patient has obstructed right EAC with a piece of cotton.), nasal congestion ( Left TM was visualized normal in appearance.) Neck: Present: trachea midline. Absent: lymphadenopathy, thyromegaly Chest: Present: symmetric chest wall rise Respiratory: Present: decreased breath sounds (decreased breath sounds through out the chest. No evidence of rales). Absent: rales/crackles, wheezes, stridor, accessory muscle use, prolonged expiratory phase Cardiovascular: Present: bradycardia, normal heart sounds, other (nuclear monitoring technician showing a ventricular paced rhythm at 5560 bpm.). Absent: systolic murmur, diastolic murmur Abdominal: Present: soft. Absent: distention, tenderness, guarding, rebound, rigidity, organomegaly, mass Extremities: Present: full ROM, pedal edema, pretibial edema, other (1 distinct blood-filled blister to the distal portion of the right index finger. There is a similar appearing area of excoriation to the lateral aspect of the right middle finger. He is to dressings in place the right lower extremity. These were not removed. No overlying erythema, swelling, induration, or drainage.). Absent: tenderness, normal capillary refill (capillary refill greater than 2 seconds.), calf tenderness Back: Absent: CVA tenderness (R), CVA tenderness (L) Neurological: Present: alert, oriented X3 Psychiatric: Present: normal affect, normal mood Skin: Present: warm, dry, other Course Course Narrative: Patient was brought into the emergency department and a history of physical exams performed. Saline lock was established and laboratory studies were drawn. Chest x-ray was obtained and reviewed. EKG was obtained and reviewed. Due to his history of CHF normal saline was started at [facility]. His fingerstick blood sugar was elevated at 430. He was given 5 units of regular insulin IVP. I made several attempts to remove the piece of cotton from his ear using a curette but unfortunately was unsuccessful. Review of his laboratory studies show the following: CBC essentially within normal limits. CMP sodium 126 (133 correct), chloride 87, BUN 85, creatinine 2.2, GFR 31, glucose 525, alkaline phosphatase 218, globulin 4.3, all others a normal limits. Troponin 0.03. ProBNP 1705. Chest x-rays read as negative by the radiologist. The patient was given an additional 5 units of insulin to help with his ongoing hyperglycemia. After reviewing all the data I reached out to our hospitalist (Dr. Leon) about the patient's current condition and need for admission. He recommended that we check with the patient's mechanical engineering teacher for guidance prior to admission. [facility] mechanical engineering teacher (Dr. Garcia) is out of the [facility] I reached out to them and spoke to the on-call mechanical engineering teacher for the group () who recommended that the patient be admitted for observation. He made recommendations for holding the patient's metoprolol, torsemide, and Entresto (valsartan/sacubitril) plus providing him with small fluid boluses to keep his pressure up. He did not think that vasopressors were warranted at this time. I relayed all this information to Dr. Leon who concurred and accepted the patient for admission. At this time the patient is going to be admitted here to our facility under the care of Dr. Leon. All further treatment decisions will be carried out by him. Vital Signs Temperature 97.3 F 11/25/18 14:42 Pulse Rate 60 11/25/18 14:42 Respiratory Rate 18 11/25/18 14:42 Blood Pressure 86/58 11/25/18 14:42 Pulse Oximetry (%) 100 11/25/18 14:42 Temperature 97.3 F 11/25/18 14:42 Pulse Rate 57 L 11/25/18 16:02 Respiratory Rate 11 L 11/25/18 18:47 Blood Pressure 88/62 11/25/18 18:47 Pulse Oximetry (%) 97 11/25/18 16:02 Medical Decision Making - Lab Data Lab results reviewed: Yes I reviewed the patient's lab results. Result diagrams: 11/25/18 15:45 11/25/18 15:45 Lab Results 11/25/18 11/25/18 11/25/18 Range/Units 15:45 15:45 15:45 WBC 5.9 (4.5-11.0) K/mcL RBC 5.18 (4.50-5.90) M/mcL Hgb 14.6 (13.5-16.5) g/dL Hct 44.0 (41.0-55.0) % MCV 84.9 (80.0-100.0) fL MCH 28.2 (26.0-34.0) pg MCHC 33.2 (31.0-36.0) g/dL RDW 15.8 H (11.5-14.5) % Plt Count 203 (140-440) K/mcL MPV 8.4 (7.4-10.4) fL Gran % 72.5 (38.0-78.0) % Lymph % (Auto) 12.4 L (15.5-49.0) % [place] % (Auto) 12.2 H (1.0-12.0) % Eos % (Auto) 2.3 (0.0-7.0) % Baso % (Auto) 0.6 (0.0-2.0) % Gran # 4.3 (1.8-8.0) K/mcL Lymph # (Auto) 0.7 L (1.5-4.8) K/mcL [place] # (Auto) 0.7 (0.1-0.9) K/mcL Eos # (Auto) 0.1 (0.0-0.7) K/mcL Baso # (Auto) 0 (0.0-0.3) K/mcL Sodium 126 L (133-145) mmol/L Potassium 4.7 (3.3-5.1) mmol/L Chloride 87 L (96-108) mmol/L Carbon Dioxide 24 (22-30) mmol/L Anion Gap 15.0 (8-16) BUN 85 H (8-23) mg/dl Creatinine 2.2 H (0.7-1.2) mg/dl GFR Calculation 31 Glucose 525 H* (70-105) mg/dL Calcium 9.8 (8.6-10.4) mg/dl Total Bilirubin 0.5 (0.0-1.0) mg/dL AST 21 (0-37) U/l ALT 26 (0-40) U/l Alkaline Phosphatase 218 H (39-117) U/L Troponin T 0.03 (0-0.03) ng/ml NT-Pro-B Natriuret Pep 1705.0 H (0-125) pg/ml Total Protein 8.2 (5.9-8.4) gm/dL Albumin 3.9 (3.2-5.2) gm/dL Globulin 4.3 H (2.2-3.7) gm/dL Albumin/Globulin Ratio 0.9 L (1.0-2.3) - Radiology Data Radiology results reviewed: Yes I reviewed the patient's radiology results. Ordering Physician: Du Munguia PA-C Date of Service: 11/25/18 Procedure(s): XR chest 2V Accession Number(s): [id number] CLINICAL INFORMATION: 63 y/o M. CHF with worsening weakness. COMPARISON: 12/11/2017 FINDINGS: Heart is normal in size. Implantable cardioverter defibrillator stable satisfactory position without wire breakage or other complication. Mediastinum and pulmonary vessels are normal. The lungs are clear. No effusions. IMPRESSION: Negative chest Interpreted and Authenticated by: Jose Kennedy 11/25/18 - EKG Data EKG #1 EKG attestation: Yes I reviewed and interpreted this EKG., Yes There are no EKG findings of acute coronary syndrome, Yes This EKG will be read by mechanical engineering teacher EKG results narrative: Atrial fibrillation with wide complex QRS at rate of [address] segment changes. Disposition Pt seen by CORE ASSEMBLY SUPERVISOR/PA only: Yes Clinical Impression: Orthostatic hypotension, Nonhealing nonsurgical wound limited to breakdown of skin, Chronic end-stage systolic heart failure Hyperglycemia due to type 2 diabetes mellitus Qualifiers: Diabetes mellitus intermediate project manager insulin use: with intermediate use Qualified Code(s): E11.65 - Type 2 diabetes mellitus with hyperglycemia; Z79.4 - senior living (current) use of insulin Atrial fibrillation Qualifiers: Atrial fibrillation type: chronic Qualified Code(s): I48.2 - Chronic atrial fibrillation Foreign body in ear Qualifiers: Encounter type: initial encounter Laterality: right Qualified Code(s): T16.1XXA - Foreign body in right ear, initial encounter Disposition: Xfer As Inpt ([facility]) Condition: Serious Instructions: Heart Failure (ED), Diabetes Mellitus Type 2 in Adults (ED) Additional Instructions: Patient is being admitted to the hospital via the hospitalist service under the care of Dr. Leon. All further treatment decisions will be carried out by him. Referrals: Belen Osman [Primary Care Provider] - Time of Disposition: 19:27
[2018-11-25] MEDS ORDERED: INSULIN REGULAR, HUMAN 1 UNIT/0.01 ML UNIT IV ONE ×3 (16:16→18:26)
[2018-11-25 16:18] LABS: Basophils # (Auto) 0 K/mcL (0.0-0.3); Basophils % (Auto) 0.6 % (0.0-2.0); Eosinophils # (Auto) 0.1 K/mcL (0.0-0.7); Eosinophils % (Auto) 2.3 % (0.0-7.0); Granulocytes % (Auto) 72.5 % (38.0-78.0); Hemoglobin 14.6 g/dL (13.5-16.5); Lymphocytes # (Auto) 0.7 K/mcL (1.5-4.8); Lymphocytes % (Auto) 12.4 % (15.5-49.0); Mean Cell Volume 84.9 fL (80.0-100.0); Mean Corpuscular HGB Conc 33.2 g/dL (31.0-36.0); Mean Platelet Volume 8.4 fL (7.4-10.4); Monocytes # (Auto) 0.7 K/mcL (0.1-0.9); Monocytes % (Auto) 12.2 % (1.0-12.0); Platelet Count 203 K/mcL (140-440); RBC 5.18 M/mcL (4.50-5.90); Red Cell Distribution Width 15.8 % (11.5-14.5); WBC 5.9 K/mcL (4.5-11.0)
--- NOTE | 2018-11-25 16:32 | XRay Report ---
CLINICAL INFORMATION: 63 y/o M. CHF with worsening weakness. COMPARISON: 12/11/2017 FINDINGS: Heart is normal in size. Implantable cardioverter defibrillator stable satisfactory position without wire breakage or other complication. Mediastinum and pulmonary vessels are normal. The lungs are clear. No effusions. IMPRESSION: Negative chest Interpreted and Authenticated by: Jose Kennedy 11/25/18
[2018-11-25 16:46] LABS: ALT/SGPT 26 U/l (0-40); AST/SGOT 21 U/l (0-37); Albumin 3.9 gm/dL (3.2-5.2); Albumin/Globulin Ratio 0.9 (1.0-2.3); Alkaline Phosphatase 218 U/L (39-117); Bilirubin,Total 0.5 mg/dL (0.0-1.0); Blood Urea Nitrogen 85 mg/dl (8-23); Calcium 9.8 mg/dl (8.6-10.4); Carbon Dioxide 24 mmol/L (22-30); Chloride 87 mmol/L (96-108); Globulin 4.3 gm/dL (2.2-3.7); Glomerular Filtration Rate 31; Glucose 525 mg/dL (70-105)
--- NOTE | 2018-11-25 19:41 | Internal Med History&Physical ---
Medical - H&P: [facility] Patient information: Note initiated : 11/25/18 at 7:37 pm Service Date, if different from initiated Date: [] Patient: Alfredo Mccall 63 y/o M admitted on for Weakness, wounds, diarrhea. Chief Complaint: [] Chief complaint: Lightheadedness History of present illness: Mr. Mccall is a 63 year old M with known history of end-stage heart failure with EF 10 to 15% on transplant list, atrial fibrillation. Patient follows up with cardiology at [facility]. He has a defibrillator placed. He is currently on optimize treatment for CHF. However over the last couple of days he has been getting progressively weaker along with increasing shortness of breath and feeling lightheaded on ambulation. He also complains of a Q-tip stuck in his ear while attempting to clean. He was evaluated in the ER initial work-up was consistent with orthostatic hypotension with systolics around 70s. Cardiology was consulted at [place] and recommended hospitalization and gentle crystalloid challenge along with holding antihypertensives. Subsequently hospitalist service was consulted. Initial work-up troponin unremarkable, BNP 1705, sodium 126, creatinine 2.2 with a BUN 85 and blood sugar 525. He does feel symptomatic and lightheaded while attempting to get up. Telemetry shows paced rhythm. Current map around 55 with systolics 73. Patient started on crystalloids. He denies changes in medications. He denies recent sick contacts or diarrhea dysuria fever chills or productive sputum. At the time of evaluation patient is alert and oriented and was able to answer most of the questions and endorsed to history as above. Review of systems A 10 point review of system was performed and is negative except was discussed above Medical - H&P: PM Medical history: End Stage Heart failure with EF 10-15% Upper respiratory infection (Chronic) Nausea (Chronic) Hypotension (Chronic) Eruption due to drug (Chronic) Anasarca (Chronic) Open wound of finger of left hand (Chronic) Echocardiogram abnormal (Chronic) Neuropathic ulcer of foot due to type 2 diabetes mellitus (Chronic) Mediastinal lymphadenopathy (Chronic) Diabetic foot ulcer (Chronic) Influenza-like illness (Chronic) Shoulder pain (Chronic) Open wound of lower leg (Chronic) Pain crisis (Chronic) Strain of right knee (Chronic) Hip pain (Chronic) Open angle glaucoma with borderline findings (Chronic) Nuclear senile cataract (Chronic) Presbyopia (Chronic) Myopathy (Chronic) Cellulitis (Chronic) Disease of liver (Chronic) Chronic back pain (Chronic) Body mass index (bmi) 30.0-30.9, adult (Chronic) Shoulder joint pain (Chronic) Proliferative diabetic retinopathy (Chronic) Chronic kidney disease, stage 4 (severe) (Chronic) Monitoring for anticoagulant use (Chronic) Fatty liver (Chronic) Venous stasis of both lower extremities (Chronic) History of automatic internal cardiac defibrillator (AICD) (Chronic) Diabetic neuropathy (Chronic) Familial polyposis (Chronic) Fatigue (Chronic) Chronic kidney disease, stage III (moderate) (Chronic) Chronic kidney disease, stage II (mild) (Chronic) History of pacemaker (Chronic 06/01/09) Type: [facility] Venous stasis ulcer (Chronic) Bilateral LE Ulcer of foot (Chronic) Fracture of thoracic vertebra, closed (Chronic) T11-T12 Ventricular aneurysm (Chronic) Left Spina bifida (Chronic) with grade I spondylolisthesis [place] (Chronic) Retinopathy, diabetic, background (Chronic) as above may take short acting prior to meals low carb diet discussed needs to see an sound effects technician, further management deferred to PCP Onychomycosis (Chronic) Obesity (Chronic) Acute anterior myocardial infarction (Chronic) Lactose intolerance (Chronic) Ischemic cardiomyopathy (Chronic) Hypertension, essential (Chronic) BP at goal ct current meds will need to start ACEI or ARB given proteinuria, will start next visit Hyperlipidemia (Chronic) TG elevated to 510, uncontrolled DM with metabolic syndrome contributing ct statins imp to get DM under control Gout (Chronic) on allopurinol and probenecid if renal function continues to get worse will need to stop probenecid Diabetes mellitus, type II (Chronic) Coronary artery disease (Chronic) Cerebrovascular disease (Chronic) Secondary cardiomyopathy (Chronic) Cardiomyopathy (Chronic) Atrial fibrillation (Chronic) Asthma (Chronic) Surgical History History of implantable cardioverter-defibrillator (ICD) placement (Chronic 06/01/09) Defibrillator Implant History of knee surgery (Chronic 06/20/94) knee scope Right History of orchiectomy (Chronic) 1994 right side History of surgical removal of skin lesion (Chronic) 2006 History of colonoscopy (Chronic 08/18/09) History of angioplasty (Chronic) Family History Unknown Family history unknown Social History marital status: single smoking status: Never smoker alcohol intake frequency: former alcohol drinker Social history: 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 [employer] Medical - H&P: Meds Home Medications Medication Instructions Recorded Confirmed Type amitriptyline 10 mg tablet 10 mg PO QHS tab 10/07/14 11/25/18 History aspirin 81 mg chewable tablet 81 mg PO QDAY tab 10/07/14 11/25/18 History Metoprolol Succinate [Toprol Xl] 75 mg PO BID 03/15/17 11/25/18 History [place]-3/Dha/Epa/Fish Oil [Fish Oil 1,000 mg PO BID 03/15/17 11/25/18 History 1,000 mg Softgel] Probenecid 250 mg PO BID 03/15/17 11/25/18 History Simvastatin [Zocor] 40 mg PO HS 03/15/17 11/25/18 History digoxin 125 mcg tablet 0.125 mg PO QDAY 02/05/18 11/25/18 History allopurinol 300 mg tablet 150 mg PO QDAY tab 04/02/18 11/25/18 History insulin glargine 100) 100 unit/mL 40 unit SUB-Q BID ml 04/02/18 11/25/18 History subcutaneous solution sacubitril 24 mg-valsartan 26 mg 1 tab PO BID 04/02/18 11/25/18 History tablet torsemide 20 mg tablet 30 mg PO QDAY tab 05/07/18 11/25/18 History insulin aspart U-100 100 unit/mL 30 unit SUB-Q .COMPLEX PRN ml 07/14/18 11/25/18 History (3 mL) subcutaneous pen Warfarin [Coumadin] 2 mg PO DAILY 11/26/18 11/26/18 History Warfarin [Coumadin] 5 mg PO DAILY 11/26/18 11/26/18 History Allergies Allergy/AdvReac Type Severity Reaction Status Date / Time lactose Allergy Unknown Unknown Verified 11/25/18 14:42 adhesive Tape Allergy Unknown Rash Uncoded 05/07/18 10:47 Medical - H&P: Exam - Constitutional Vitals: Temp Pulse Resp BP Pulse Ox 97.3 F 54 L 15 90/58 92 11/25/18 14:42 11/25/18 19:17 11/25/18 19:17 11/25/18 19:17 11/25/18 19:17 General appearance: no acute distress Exam: Alert and oriented but fatigued Head normocephalic Oral cavity dry No ear nose discharge Eye movement symmetrical Neck no lymphadenopathy S1-S2 irregular rhythm, pacemaker anterior chest, ESM grade 1 Diminished breath sounds bases Abdomen soft nontender Lower extremity 1+ pitting edema but no cyanosis clubbing no joint swelling Skin no suspicious lesion Psych alert cooperative Neuro nonfocal Medical - H&P: Reslt - Labs CBC & Chem 7: 11/26/18 03:59 11/26/18 03:59 Labs: Short CBC 11/25/18 Range/Units 15:45 WBC 5.9 (4.5-11.0) K/mcL Hgb 14.6 (13.5-16.5) g/dL Hct 44.0 (41.0-55.0) % Plt Count 203 (140-440) K/mcL BMP 11/25/18 15:45 Sodium 126 L Potassium 4.7 Chloride 87 L Carbon Dioxide 24 BUN 85 H Creatinine 2.2 H Glucose 525 H* Calcium 9.8 Cardiac Enzymes 11/25/18 Range/Units 15:45 Troponin T 0.03 (0-0.03) ng/ml Liver Function 11/25/18 Range/Units 15:45 Total Bilirubin 0.5 (0.0-1.0) mg/dL AST 21 (0-37) U/l ALT 26 (0-40) U/l Alkaline Phosphatase 218 H (39-117) U/L Albumin 3.9 (3.2-5.2) gm/dL Medical - H&P: A/P (1) Chronic end-stage systolic heart failure Current visit: Yes Status: Acute * End-stage heart failure with EF 10%-patient currently on transplant list. No acute decompensation however low systolics with an adequate cerebral perfusion leading to dizziness/orthostasis. Cardiology at [facility] consulted from ER. Recommends holding antihypertensives for 24 hours and close monitoring. Gentle crystalloid challenge. * Orthostatic hypotension hold amitriptyline/antihypertensives and volume depletion. Gentle crystalloids. ICU admit. Close hemodynamic monitoring. Pressors if persistent hypotension * Acute on chronic kidney injury-creatinine 2.2. Likely volume depletion. Gentle crystalloids and monitor renal function and avoid nephrotoxins. Consult nephrology if deterioration noted * Hyponatremia secondary to underlying CHF. Continue monitoring * Poorly controlled DM type II -blood sugar over 500. Continue basal prandial insulin * History of gout continue allopurinol * Coronary disease continue aspirin/Coumadin * Hyperlipidemia continue statin * Full code * Prophylaxis on Coumadin INR therapeutic Plan * Inpatient admission * Hold antihypertensives * Gentle crystalloids * Prior medical condition management home meds * Optimize blood sugar control * Pressors if indicated * Transfer to tertiary center if no response to treatment
[2018-11-25] MEDS ORDERED: DEXTROSE 31 GM ORAL.SUSP PO PRN (20:48)
[2018-11-25] MEDS ORDERED: ONDANSETRON 4 MG/2 ML VIAL IV PRN (20:48)
[2018-11-25] MEDS ORDERED: POTASSIUM CHLORIDE 20 MEQ PACKET PO PRN (20:48)
[2018-11-25] MEDS ORDERED: INSULIN ASPART 30 UNIT SUB-Q PRN (20:48)
[2018-11-25] MEDS ORDERED: 0.9 % SODIUM CHLORIDE 1,000 ML IV SCH (20:48)
[2018-11-25] MEDS ORDERED: DEXTROSE 50% 50 ML VIAL IV PRN (20:48)
[2018-11-25] MEDS ORDERED: ACETAMINOPHEN 1,000 MG/100 ML BOTTLE IV PRN (20:48)
[2018-11-25] MEDS ORDERED: ACETAMINOPHEN 325 MG TABLET PO PRN (20:48)
[2018-11-25] MEDS ORDERED: MAGNESIUM SULFATE 2 GM/50 ML BAG IV PRN (20:48)
[2018-11-25] MEDS: METOPROLOL SUCCINATE 50 MG TAB.XL.24H PO SCH (21:29)
[2018-11-25] MEDS: SENNOSIDES/DOCUSATE SODIUM 1 TAB TABLET PO SCH (21:31)
[2018-11-25] MEDS: DOCUSATE SODIUM 100 MG CAPSULE PO SCH (21:31)
[2018-11-25] MEDS: 0.9 % SODIUM CHLORIDE 10 ML SYRINGE IV SCH (21:32)
[2018-11-25] MEDS: SIMVASTATIN 20 MG TABLET PO SCH (21:43)
[2018-11-25] MEDS: FISH OIL 1,000 MG CAPSULE PO SCH (21:43)
[2018-11-25] MEDS: INSULIN GLARGINE, HUMAN 1 UNIT/0.01 ML SQ SCH (21:43)
[2018-11-25] MEDS: INSULIN LISPRO 1 UNIT/0.01 ML UNIT SQ SCH (21:44)
[2018-11-25] MEDS: PROBENECID 250 MG PO SCH (21:47)
[2018-11-26] MEDS: 0.9 % SODIUM CHLORIDE 10 ML SYRINGE IV SCH ×3 (05:47→20:38)
[2018-11-26 06:43] LABS: Mean Corpuscular HGB Conc 33.4 g/dL (31.0-36.0); Mean Platelet Volume 8.4 fL (7.4-10.4); Platelet Count 197 K/mcL (140-440); RBC 4.94 M/mcL (4.50-5.90); Red Cell Distribution Width 15.9 % (11.5-14.5); WBC 5.2 K/mcL (4.5-11.0)
[2018-11-26 07:13] LABS: ALT/SGPT 22 U/l (0-40); AST/SGOT 23 U/l (0-37); Albumin 3.5 gm/dL (3.2-5.2); Albumin/Globulin Ratio 0.9 (1.0-2.3); Alkaline Phosphatase 181 U/L (39-117); Bilirubin,Direct < 0.2 mg/dL (0.0-0.3); Bilirubin,Total 0.6 mg/dL (0.0-1.0); Blood Urea Nitrogen 85 mg/dl (8-23); Calcium 9.4 mg/dl (8.6-10.4); Carbon Dioxide 25 mmol/L (22-30); Chloride 95 mmol/L (96-108); Globulin 3.9 gm/dL (2.2-3.7); Glomerular Filtration Rate 35; Glucose 197 mg/dL (70-105); Lactate Dehydrogenase 230 U/L (94-250); Phosphorous 4.1 mg/dL (2.7-4.5); Triglycerides 160 mg/dl (<150); Uric Acid 8.2 mg/dL (2.5-8.0)
[2018-11-26 07:29] LABS: INR 3.2 (0.9-1.1); Prothrombin Time 36.5 sec (11.9-14.5)
[2018-11-26 08:21] LABS: Band Neutrophils % 1 % (0-10); Eosinophils % (Manual) 3 % (0-7); Lymphocytes % 15 % (15-49); Monocytes % (Manual) 11 % (1-12); Platelet Estimate NORMAL (NORMAL); RBC Morphology NORMAL (NORMAL); Reactive Lymphocytes 1 % (0-2); Segmented Neutrophils % 69 % (38-78)
[2018-11-26] MEDS: FISH OIL 1,000 MG CAPSULE PO SCH ×2 (09:15→20:23)
[2018-11-26] MEDS: TORSEMIDE 10 MG TABLET PO SCH (09:15)
[2018-11-26] MEDS: FOLIC ACID 1 MG TABLET PO SCH (09:15)
[2018-11-26] MEDS: DOCUSATE SODIUM 100 MG CAPSULE PO SCH ×2 (09:15→20:17)
[2018-11-26] MEDS: ASPIRIN 81 MG TAB.CHEW PO SCH (09:15)
[2018-11-26] MEDS: INSULIN LISPRO 1 UNIT/0.01 ML UNIT SQ SCH ×4 (09:15→20:23)
[2018-11-26] MEDS: INSULIN GLARGINE, HUMAN 1 UNIT/0.01 ML SQ SCH ×2 (09:15→20:23)
[2018-11-26] MEDS: MULTIVIT,THER IRON,CA,FA & MIN 1 TABLET PO SCH (09:16)
[2018-11-26] MEDS: PROBENECID 250 MG PO SCH (09:16)
[2018-11-26] MEDS: METOPROLOL SUCCINATE 50 MG TAB.XL.24H PO SCH ×2 (09:16→20:26)
[2018-11-26] MEDS: ALLOPURINOL 300 MG TABLET PO SCH (09:17)
[2018-11-26] MEDS: THIAMINE 100 MG TABLET PO SCH (09:17)
[2018-11-26] MEDS: DIGOXIN 125 MCG TABLET PO SCH (11:58)
--- NOTE | 2018-11-26 13:10 | Internal Med Progress Note ---
Medical - PN: Subj Patient information: Note initiated : 11/26/18 at 1:05 pm Service Date, if different from initiated Date: [] Patient: Alfredo Mccall 63 y/o M admitted on 11/25/18 for Weakness, wounds, diarrhea. Chief Complaint: [] Interval history: Mr. Mccall is a 63 year old M with known history of end-stage heart failure with EF 10 to 15% on transplant list, atrial fibrillation. Patient follows up with cardiology at [facility]. He has a defibrillator placed. He is currently on optimize treatment for CHF. However over the last couple of days he has been getting progressively weaker along with increasing shortness of breath and feeling lightheaded on ambulation. He also complains of a Q-tip stuck in his ear while attempting to clean. He was evaluated in the ER initial work-up was consistent with orthostatic hypotension with systolics around 70s. Cardiology was consulted at [place] and recommended hospitalization and gentle crystalloid challenge along with holding antihypertensives. Subsequently hospitalist service was consulted. Initial work-up troponin unremarkable, BNP 1705, sodium 126, creatinine 2.2 with a BUN 85 and blood sugar 525. He does feel symptomatic and lightheaded while attempting to get up. Telemetry shows paced rhythm. Current map around 55 with systolics 73. Patient started on crystalloids. He denies changes in medications. He denies recent sick c ontacts or diarrhea dysuria fever chills or productive sputum. At the time of evaluation patient is alert and oriented and was able to answer most of the questions and endorsed to history as above. 11/26-patient doing much better. Systolics improved to 110. Restart metoprolol/half dose of valsartan. Possible discharge in 24 hours if continues to improve clinically. Improved lightheadedness dizziness. No overnight events. No concerns expressed to nursing staff. - Constitutional Vitals: Vital Signs Temp Pulse Resp BP Pulse Ox 97.4 F 66 18 98/63 96 11/26/18 12:05 11/26/18 08:00 11/26/18 08:00 11/26/18 12:05 11/26/18 12:05 Period Temp Pulse Resp BP Sys/Hernandez Pulse Ox Last 24 Hr 96.9 F-97.7 F 50-118 10-23 73-123/39-100 91-100 Intake and Output 11/25/18 11/26/18 11/26/18 21:59 05:59 13:59 Intake Total 750 340 580 Output Total 765 424 0194 Balance 450 -185 695 Weight 273 lb 9.6 oz 273 lb 9.6 oz Patient Weight 11/27/18 05:59 Weight 273 lb 9.6 oz Intake & Output: Intake & Output 11/25/18 11/26/18 11/26/18 21:59 05:59 13:59 Intake Total 750 340 580 Output Total 780 974 4306 Balance 450 -185 695 Weight 273 lb 9.6 oz 273 lb 9.6 oz Intake: IV 750 Sodium Chloride 0.9% 250 ml @ 750 Wide Open IV BOL[facility] ONE Rx#: [id number] Oral 340 580 Output: Void Amount 920 204 9793 Other: Meal Lunch Percent of Meal Consumed 100% Urine Appearance Clear Clear Urine Color Bright Yellow Bright Yellow Urine Odor Normal Normal General appearance: no acute distress Exam: Alert oriented No labored breathing Chest clear to auscultation bilaterally Intermittently paced rhythm No lymphedema Medical - PN: Obj Da - Labs CBC & Chem 7: 11/26/18 03:59 11/26/18 03:59 Labs: Abnormal Lab Results 11/26/18 11/26/18 11/26/18 07:15 03:59 03:59 RDW 15.9 H Lymph % (Auto) Weber % (Auto) Lymph # (Auto) PT 36.5 H INR 3.2 H Sodium Chloride 95 L BUN 85 H Creatinine 2.0 H Glucose 197 H Uric Acid 8.2 H GGT 104 H Alkaline Phosphatase 181 H NT-Pro-B Natriuret Pep Globulin 3.9 H Albumin/Globulin Ratio 0.9 L Triglycerides 160 H 11/25/18 11/25/18 15:45 15:45 RDW 15.8 H Lymph % (Auto) 12.4 L Weber % (Auto) 12.2 H Lymph # (Auto) 0.7 L PT INR Sodium 126 L Chloride 87 L BUN 85 H Creatinine 2.2 H Glucose 525 H* Uric Acid GGT Alkaline Phosphatase 218 H NT-Pro-B Natriuret Pep 1705.0 H Globulin 4.3 H Albumin/Globulin Ratio 0.9 L Triglycerides Meds: Medications Acetaminophen (Tylenol) 650 mg PO Q4-6HP PRN PRN Reason: PAIN/FEVER > 101 Allopurinol (Zylopriim) 150 mg PO QDAY [facility] Last Admin: 11/26/18 09:17 Dose: 150 mg Documented by: Aspirin (Aspirin) 81 mg PO QDAY [facility] Last Admin: 11/26/18 09:15 Dose: 81 mg Documented by: Dextrose (Dextrose 50%) 0 ml IV UD PRN PRN Reason: Hypoglycemia Diagnostic Test (Pha) (Accu-Chek) 1 each FS [facility] Last Admin: 11/26/18 11:57 Dose: 1 each Documented by: Digoxin (Lanoxin) 125 mcg PO DAILY@1200 [facility] Last Admin: 11/26/18 11:58 Dose: 125 mcg Documented by: Docusate Sodium (Colace) 100 mg PO BID [facility] Last Admin: 11/26/18 09:15 Dose: 100 mg Documented by: Fish Oil (Fish Oil) 1,000 mg PO BID [facility] Last Admin: 11/26/18 09:15 Dose: 1,000 mg Documented by: Folic Acid (Folic Acid) 1 mg PO DAILY [facility] Last Admin: 11/26/18 09:15 Dose: 1 mg Documented by: Glucose (Insta-Glucose) 15 gm PO PRN PRN PRN Reason: Hypoglycemia Sodium Chloride (Sodium Chloride 0.9%) 1,000 mls @ 50 mls/hr IV .Q20H [facility] Stop: 11/26/18 16:47 Last Admin: 11/25/18 21:22 Dose: 50 mls/hr Documented by: Magnesium Sulfate (Magnesium Sulfate) 2 gm in 50 mls @ 50 mls/hr IV UD PRN PRN Reason: MG = or < 1.7 Acetaminophen (Ofirmev) 1,000 mg in 100 mls @ 200 mls/hr IV Q6HP PRN PRN Reason: PAIN/FEVER > 101 Insulin Glargine (Lantus) 40 unit SQ BID [facility] Last Admin: 11/26/18 09:15 Dose: 40 unit Documented by: Insulin Human Lispro (Humalog) 0 unit SQ [facility]; Protocol Last Admin: 11/26/18 11:57 Dose: 3 unit Documented by: Iron Carb/Multivit/[place]/Folic Acid (Multivitamin W/Minerals) 1 tab PO DAILY [facility] Last Admin: 11/26/18 09:16 Dose: 1 tab Documented by: Metoprolol Succinate (Toprol Xl) 75 mg PO BID [facility] Last Admin: 11/26/18 09:16 Dose: 75 mg Documented by: Probenecid 250 Mg (Tab) 250 mg PO BID [facility] Last Admin: 11/26/18 09:16 Dose: Not Given Documented by: Ondansetron HCl (Zofran) 4 mg IV Q4-6HP PRN PRN Reason: Nausea And Vomiting Sacubitril/Valsartan [Entresto] 24/26 Mg Tab 0.5 dose PO BID [facility] Pneumococcal Polyvalent Vaccine (Pneumovax 23) 0.5 ml IM .ONCE ONE Stop: 11/27/18 10:01 Potassium Chloride (Klor-Con) 40 meq PO DAILYP PRN PRN Reason: K+ < 3.5 Senna/Docusate Sodium (Senna Plus Tablet) 1 tab PO [facility] Last Admin: 11/25/18 21:31 Dose: Not Given Documented by: Simvastatin (Zocor) 40 mg PO [facility] Last Admin: 11/25/18 21:43 Dose: 40 mg Documented by: Sodium Chloride (Saline Flush) 10 ml IV Q8 [facility] Last Admin: 11/26/18 05:47 Dose: Not Given Documented by: Thiamine HCl (Vitamin B1) 100 mg PO DAILY [facility] Last Admin: 11/26/18 09:17 Dose: 100 mg Documented by: Torsemide (Demadex) 30 mg PO DAILY [facility] Last Admin: 11/26/18 09:15 Dose: 30 mg Documented by: Warfarin Sodium (Coumadin Per Pharmacy) 1 order PO DAILY@1400 [facility] Medical - PN: A/P - Time Spent With Patient Total time spent is greater than 50% in coordination of care (as documented) at patient's floor/unit and/or counseling patient: 25 - 35 minutes (1) Chronic end-stage systolic heart failure Status: Acute Assessment and plan: * Orthostatic hypotension secondary to volume depletion/antihypertensives. Hold amitriptyline/restart antihypertensives at half dose. Status post 1 L crystalloid. Transfer to telemetry. Continue monitoring. If stable patient can be discharged in 24 hours. Continue PT OT * End-stage heart failure with EF 10%-patient currently on transplant list. Cardiology at [facility] consulted from ER. Patient will follow-up with cardiology in 1 week. * Acute on chronic kidney injury-creatinine downtrending now at 2. Likely secondary to volume depletion. Patient follows up with nephrology as outpatient * Hyponatremia secondary to underlying CHF. Now 133. * Poorly controlled DM type II -blood sugars improved from 525-197. Continue basal prandial insulin. * History of atrial fibrillation continue anticoagulation. Rate controlled on beta-payam/digoxin * History of gout no acute flare. Continue allopurinol * Coronary disease continue aspirin/Coumadin/beta-payam/ARB * Hyperlipidemia continue statin * Full code * Prophylaxis on Coumadin INR therapeutic 3.1 Plan * Restart antihypertensives at half dose * PT OT * Continue pre-existing medical condition management home meds * Possible discharge in 24 hours if clinically back to baseline * Coumadin dosing based on INR Current Visit: Yes Medical - PN: Qual - VTE Deep Vein Thrombosis/Pulmonary Embolism Present on Admission: No
[2018-11-26] MEDS ORDERED: WARFARIN 4 MG TABLET PO SCH (14:00)
[2018-11-26] MEDS: SENNOSIDES/DOCUSATE SODIUM 1 TAB TABLET PO SCH (20:17)
[2018-11-26] MEDS: SIMVASTATIN 20 MG TABLET PO SCH (20:26)
[2018-11-27 05:22] LABS: Hematocrit 44.5 % (41.0-55.0); Mean Cell Volume 85.3 fL (80.0-100.0); Mean Corpuscular HGB Conc 33.6 g/dL (31.0-36.0); Mean Platelet Volume 8.1 fL (7.4-10.4); Platelet Count 212 K/mcL (140-440); RBC 5.23 M/mcL (4.50-5.90); WBC 4.7 K/mcL (4.5-11.0)
[2018-11-27 05:24] LABS: INR 2.3 (0.9-1.1); Prothrombin Time 24.7 sec (11.9-14.5)
[2018-11-27] MEDS: 0.9 % SODIUM CHLORIDE 10 ML SYRINGE IV SCH (05:33)
[2018-11-27 05:41] LABS: ALT/SGPT 24 U/l (0-40); AST/SGOT 26 U/l (0-37); Albumin 3.9 gm/dL (3.2-5.2); Albumin/Globulin Ratio 0.9 (1.0-2.3); Alkaline Phosphatase 193 U/L (39-117); Bilirubin,Direct < 0.2 mg/dL (0.0-0.3); Bilirubin,Total 0.6 mg/dL (0.0-1.0); Blood Urea Nitrogen 78 mg/dl (8-23); Calcium 9.5 mg/dl (8.6-10.4); Carbon Dioxide 26 mmol/L (22-30); Chloride 98 mmol/L (96-108); Globulin 4.2 gm/dL (2.2-3.7); Glomerular Filtration Rate 46; Glucose 162 mg/dL (70-105); Lactate Dehydrogenase 194 U/L (94-250); Phosphorous 3.6 mg/dL (2.7-4.5); Triglycerides 188 mg/dl (<150); Uric Acid 8.6 mg/dL (2.5-8.0)
[2018-11-27 06:16] LABS: Anisocytosis 1+ (NONE SEEN); Eosinophils % (Manual) 1 % (0-7); Lymphocytes % 14 % (15-49); Monocytes % (Manual) 11 % (1-12); Platelet Estimate NORMAL (NORMAL); RBC Morphology ABNORM (NORMAL); Segmented Neutrophils % 74 % (38-78)
[2018-11-27] MEDS: INSULIN LISPRO 1 UNIT/0.01 ML UNIT SQ SCH ×2 (07:52→11:44)
--- NOTE | 2018-11-27 08:50 | XRay Report ---
CLINICAL INFORMATION: Shortness of breath COMPARISON: 11/25/2018 FINDINGS: Implantable cardioverter defibrillator in stable satisfactory position. The heart is mildly enlarged but unchanged. Mediastinum and pulmonary vessels are normal. The lungs are clear. No effusions. IMPRESSION: No acute disease - stable Interpreted and Authenticated by: Jose Kennedy 11/27/18
[2018-11-27] MEDS: MULTIVIT,THER IRON,CA,FA & MIN 1 TABLET PO SCH (09:46)
[2018-11-27] MEDS: ALLOPURINOL 300 MG TABLET PO SCH (09:47)
[2018-11-27] MEDS: INSULIN GLARGINE, HUMAN 1 UNIT/0.01 ML SQ SCH (09:47)
[2018-11-27] MEDS: DOCUSATE SODIUM 100 MG CAPSULE PO SCH (09:48)
[2018-11-27] MEDS: FOLIC ACID 1 MG TABLET PO SCH (09:48)
[2018-11-27] MEDS: THIAMINE 100 MG TABLET PO SCH (09:48)
[2018-11-27] MEDS: METOPROLOL SUCCINATE 50 MG TAB.XL.24H PO SCH (09:49)
[2018-11-27] MEDS: TORSEMIDE 10 MG TABLET PO SCH (09:49)
[2018-11-27] MEDS: FISH OIL 1,000 MG CAPSULE PO SCH (09:49)
[2018-11-27] MEDS: ASPIRIN 81 MG TAB.CHEW PO SCH (09:50)
[2018-11-27] MEDS ORDERED: PNEUMOCOCCAL 23-VAL P-SAC VAC 0.5 ML SYRINGE IM ONE (10:00)
--- NOTE | 2018-11-27 10:33 | Discharge Summary ---
Medical - DS: Prov Patient information: Note initiated : 11/27/18 at 10:29 am Service Date, if different from initiated Date: [] Patient: Alfredo Mccall 63 y/o M admitted on 11/25/18 for Weakness, wounds, diarrhea. Chief Complaint: [] Date of admission: 11/25/18 20:31 Discharge date: 11/27/18 Primary care physician: Belen Osman Consults: 11/25/18 Consult to Physician [CONS] Stat Comment: Consulting Provider: Didier Winters Reason For Exam: Physician to Consult Medical - DS: Meds - Discharge Medications Prescriptions: Sacubitril/Valsartan [Entresto 24 mg-26 mg Tablet] 0.5 tab PO BID #30 tab Transmission Status: Pending to [facility] Active and Home Medications: Home Medications amitriptyline 10 mg tablet 10 mg PO QHS tab 10/07/14 [History Confirmed 11/25/18 Last Taken 03/13/17 20:00] aspirin 81 mg chewable tablet 81 mg PO QDAY tab 10/07/14 [History Confirmed 11/25/18 Last Taken 03/14/17 08:00] Metoprolol Succinate [Toprol Xl] 75 mg PO BID 03/15/17 [History Confirmed 11/25/18 Last Taken Unknown] [place]-3/Dha/Epa/Fish Oil [Fish Oil 1,000 mg Softgel] 1,000 mg PO BID 03/15/17 [History Confirmed 11/25/18 Last Taken Unknown] Probenecid 250 mg PO BID 03/15/17 [History Confirmed 11/25/18 Last Taken Unknown] Simvastatin [Zocor] 40 mg PO HS 03/15/17 [History Confirmed 11/25/18 Last Taken Unknown] digoxin 125 mcg tablet 0.125 mg PO QDAY 02/05/18 [History Confirmed 11/25/18 Last Taken Unknown] allopurinol 300 mg tablet 150 mg PO QDAY tab 04/02/18 [History Confirmed 11/25/18 Last Taken Unknown] insulin glargine 100) 100 unit/mL subcutaneous solution 40 unit SUB-Q BID ml 04/02/18 [History Confirmed 11/25/18 Last Taken Unknown] torsemide 20 mg tablet 30 mg PO QDAY tab 05/07/18 [History Confirmed 11/25/18 Last Taken Unknown] insulin aspart U-100 100 unit/mL (3 mL) subcutaneous pen 30 unit SUB-Q .COMPLEX PRN ml 07/14/18 [History Confirmed 11/25/18 Last Taken Unknown] Warfarin [Coumadin] 2 mg PO DAILY 11/26/18 [History Confirmed 11/26/18 Last Taken Unknown] Warfarin [Coumadin] 5 mg PO DAILY 11/26/18 [History Confirmed 11/26/18 Last Taken 11/25/18 14:00] Sacubitril/Valsartan [Entresto 24 mg-26 mg Tablet] 0.5 tab PO BID #30 tab 11/27/18 [Rx Last Taken Unknown] Medical - DS: Hosp Hospital Course: Discharge diagnosis * Orthostatic hypotension secondary to volume depletion/antihypertensives. Held amitriptyline/and lowered valsartan dose to half. Clinically back at baseline. Restart amitriptyline however continue valsartan at half dose on discharge until follow-up with cardiology. Clinically much improved with discharging home * End-stage heart failure with EF 10%-patient currently on transplant list. Cardiology at [facility] consulted from ER. Patient will follow-up with cardiology on .. * Acute on chronic kidney injury-creatinine at baseline 1.6. Patient follows up with nephrology as outpatient * Mild hyponatremia resolved now 135. * Poorly controlled DM type II -remains stable * History of atrial fibrillation continue anticoagulation. Rate controlled on beta-payam/digoxin * History of gout no acute flare. Continue allopurinol * Coronary disease continue aspirin/Coumadin/beta-payam/ARB * Hyperlipidemia continue statin * Prophylaxis currently on anticoagulation. INR therapeutic at 2.3 Brief hospital course Mr. Mccall is a 63 year old M with known history of end-stage heart failure with EF 10 to 15% on transplant list, atrial fibrillation. Patient follows up with cardiology at [facility]. He has a defibrillator placed. He is currently on optimize treatment for CHF. However over the last couple of days he has been getting progressively weaker along with increasing shortness of breath and feeling lightheaded on ambulation. He also complains of a Q-tip stuck in his ear while attempting to clean. He was evaluated in the ER initial work-up was consistent with orthostatic hypotension with systolics around 70s. Cardiology was consulted at [place] and recommended hospitalization and gentle crystalloid challenge along with holding antihypertensives. Subsequently hospitalist service was consulted. Initial work-up troponin unremarkable, BNP 1705, sodium 126, creatinine 2.2 with a BUN 85 and blood sugar 525. He does feel symptomatic and lightheaded while attempting to get up. Telemetry shows paced rhythm. Current map around 55 with systolics 73. Patient started on crystalloids. He denies changes in medications. He denies recent sick contacts or diarrhea dysuria fever chills or productive sputum. At the time of evaluation patient is alert and oriented and was able to answer most of the questions and endorsed to history as above. 11/26-patient doing much better. Systolics improved to 110. Restart metoprolol/half dose of valsartan. Possible discharge in 24 hours if continues to improve clinically. Improved lightheadedness dizziness. No overnight events. No concerns expressed to nursing staff. 11/27-patient doing remarkably better. No overnight events. No concerns per staff. Blood pressure is stable. Continue half dose of valsartan. Follow-up with cardiology at [facility] on . Patient feels at baseline. No significant lightheadedness weakness. Able to ambulate. Detailed discharge instructions below Discharge diagnosis: . - Time Spent with Patient Total time spent providing and/or coordinating discharge services: Greater than 30 minutes Medical - DS: Exam - Constitutional Vitals: Vital Signs Temp Resp BP Pulse Ox 11/27/18 07:54 106/78 11/27/18 07:38 97.1 F 16 105/72 95 11/27/18 03:41 97.8 F 18 108/56 98 11/27/18 00:11 98.2 F 20 99/56 95 11/26/18 20:38 97.3 F 14 103/61 98 11/26/18 20:00 98 11/26/18 16:31 97.4 F 16 94/43 94 11/26/18 12:05 97.4 F 98/63 96 Intake and Output 11/26/18 11/27/18 11/27/18 21:59 05:59 13:59 Intake Total 1390 280 180 Output Total 550 1800 800 Balance 241 -5179 -827 Intake: IV 1000 Sodium Chloride 0.9% 1,000 ml @ 1000 50 mls/hr IV .Q20H [facility] Rx#: [id number] Oral 390 280 180 Output: Urine Catheter Amount 800 Void Amount 550 1800 Other: Meal Dinner Breakfast Percent of Meal Consumed 100% 100% Feeding Ability Independent Urine Appearance Clear Clear Clear Urine Color Bright Yellow Bright Yellow Bright Yellow Urine Odor Normal Normal Weight 272 lb 3.2 oz Medical - DS: Data Labs on day of discharge: Labs from last 24 hours 11/27/18 11/27/18 11/27/18 03:41 03:41 03:41 WBC 4.7 RBC 5.23 Hgb 15.0 Hct 44.5 MCV 85.3 MCH 28.6 MCHC 33.6 RDW 16.0 H Plt Count 212 MPV 8.1 Total Counted 100 Seg Neutrophils % 74 Band Neutrophils % Not Reportable Lymphocytes % 14 L Monocytes % (Manual) 11 Eosinophils % (Manual) 1 Platelet Estimate Normal RBC Morphology Abnorm A Anisocytosis 1+ A PT 24.7 H INR 2.3 H Sodium 135 Potassium 4.8 Chloride 98 Carbon Dioxide 26 Anion Gap 11.0 BUN 78 H Creatinine 1.6 H GFR Calculation 46 Glucose 162 H Uric Acid 8.6 H Calcium 9.5 Phosphorus 3.6 Magnesium 2.3 Total Bilirubin 0.6 Direct Bilirubin < 0.2 GGT 114 H AST 26 ALT 24 Alkaline Phosphatase 193 H Lactate Dehydrogenase 194 Total Protein 8.1 Albumin 3.9 Globulin 4.2 H Albumin/Globulin Ratio 0.9 L Triglycerides 188 H Medical - DS: A/P - Patient/Caregiver Discharge Instructions Activity: increase activity as tolerated Diet: Low Sodium (2gm) Additional Instructions: Follow-up Cardiology in 5 days at [facility] F/u nephrology as prior for management of CKD Coumadin dosing based on INR as prior Lower dose of valsartan to half until follow-up with cardiology I recommend PCP to check, CBC BMP UA as a posthospital follow-up and Chest x-ray in 1 week. Please schedule pulmonary function test as outpatient in 3 weeks Continue aggressive bowel regimen to prevent constipation Continue fall precautions daily weights measurements and take additional 40 mg Lasix for 3 days if weight gain over 4 pounds over baseline or worsening shortness of breath and call primary care physician if inadequate response to Lasix All meals on chair sitting upright at 90 degrees to prevent aspiration Return to ER if lightheadedness or dizziness noted Refrain from smoking and alcohol Continue diet and activity as advised Discussed importance of medication adherence Please review medication list with patient prior to discharge Please schedule follow-up with PCP/Providers prior to discharge and provide printouts Prescriptions: Sacubitril/Valsartan [Entresto 24 mg-26 mg Tablet] 0.5 tab PO BID #30 tab Transmission Status: Pending to [facility] - Problem Maintenance (1) Chronic end-stage systolic heart failure Status: Acute - Follow up Plan Follow up with: Belen Osman [Primary Care Provider] - 12/03/18 4:00 pm Disposition: Home, Self-Care Care Plan Goals: This discharge packet is provided to you to help keep you informed about your care. We want to ensure you get everything you need when you go home. You will also be receiving a call from us in a few days to follow up with you and see how you are doing since your discharge. This gives us a chance to listen to any concerns you maybe experiencing since you were discharged or any additional needs you may have, as well as providing us feedback on your care experience. We strive to always provide excellent care and thank you for your feedback and for choosing [facility]. Prognosis: Fair Rehab Potential: Fair I certify that the patient requires SNF services: No Overall status at discharge: patient is progressing back to baseline Medical - DS: Qual - VTE Deep Vein Thrombosis/Pulmonary Embolism Present on Admission: No
[2018-11-27] MEDS ORDERED: WARFARIN 2 MG TABLET PO ONE (12:00)
[2018-11-27] MEDS: DIGOXIN 125 MCG TABLET PO SCH (12:07)
== END 2018-11-27 12:21 | disposition home or self-care (01) | DRG 312 ==
LOC: ED 14:42 → ICU 20:31
PROVIDERS: ADMIT Internal Medicine; ATTEND Internal Medicine

== ENCOUNTER 2021-11-13 09:41 | Observation (INO) ==
[2021-11-13] MEDS ORDERED: HYDROcodone/APAP 5/325MG TABLET PO ONE (10:16)
[2021-11-13 10:33] LABS: POC Calcium, Ionized 1.1 (1.16-1.32); POC Creatinine 3.6 (0.6-1.2); POC Potassium 5.1 (3.3-5.1)
--- NOTE | 2021-11-13 11:54 | Cat Scan Report ---
CLINICAL INFORMATION: Trauma COMPARISON: Chest CT 03/10/2017 TECHNIQUE: 0.625 mm axial slices were obtained from the lung apices through the bases without intravenous contrast. 2.5 mm Sagittal, coronal and axial reformatted images were processed and reviewed at bone, lung and soft tissue windows. 7 mm axial MIP images were also reconstructed to optimize pulmonary nodule detection.The exam was performed using radiation dose optimization techniques including, but not limited to, automated exposure control, adjustment of the mA and/or kV according to patient size and use of iterative reconstruction technique. FINDINGS: Pulmonary parenchymal windows show mild centrilobular emphysema featuring chronic bronchitis with elevated lung volumes wall thickening/dilatation of bronchi. There are scattered small bullae throughout both lungs as predominantly in the upper lobes. Since the previous CT, a 14 mm pleural-based nodule with irregular stellate borders as developed in the anterior basilar segment left lower lobe on image 93. There is also a 14 mm cavitary nodule in the posterior basilar segment of the right lower lobe on image 108. Minor scattered scarring in the periphery of both lungs is also seen. No brendon infiltrates. Pleural spaces are normal. Mediastinal windows show moderate cardiomegaly. Moderate calcific plaque seen in the coronary arteries. Right IJ Port-A-Cath tip overlies the SVC right atrial junction. The pulmonary arteries are mildly dilated colon main pulmonary diameter 3.5 cm compatible with pulmonary hypertension related to COPD. Multiple moderately enlarged lymph nodes in the lower mediastinum and hilar region are unchanged from the remote CT over four years prior. The largest is 2.6 cm within the right hilum. The esophagus is grossly normal. Thyroid is unremarkable. Bone windows show moderate T12 compression fracture-no from the prior study. No other osseous abnormalities. Moderate edema is seen in the subcutaneous fat throughout the lower lateral chest wall and upper flanks. Images through the superior abdomen show multiple small stones in the gallbladder. Gallbladder and bile ducts otherwise normal. The visualized kidneys, adrenal glands, spleen pancreas and liver are normal. IMPRESSION: 1. 14 mm pleural-based nodule in the anterior basilar segment of the left lower lobe-new from comparison CT four years prior. This could represent pulmonary malignancy. Suggest CT-guided biopsy. 2. 14 elevated cavitary nodule in the posterior basilar segment right lower lobe. This is also new and may be neoplastic or inflammatory. Suggest three month follow-up CT for reevaluation 3. Moderate centrilobular emphysema with mild enlargement central pulmonary arteries suggesting associated pulmonary hypertension 4. Multiple moderately enlarged lymph nodes in the lower mediastinum and hilum have been stable since exam over four years ago. Stability would militate against a malignancy. The patient may have remote sarcoidosis or chronic benign reactive adenopathy. 5. Moderate subcutaneous edema throughout the lateral chest wall and flank. 6. Cholelithiasis. 7. Moderate T12 compression fracture. This may be acute as a result of recent trauma Interpreted and Authenticated by: Jose Kennedy 11/13/21
--- NOTE | 2021-11-13 12:15 | XRay Report ---
CLINICAL INFORMATION: Trauma-fall COMPARISON: None. 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 There is chondrocalcinosis in the lateral menisci. Small bilateral suprapatellar effusions noted [place] prominent on the right. Small amount of calcification seen in the patellar tendon insertion on the left. No fracture appreciated. Mild diffuse bilateral soft tissue swelling noted. IMPRESSION: No evidence of fracture. Other chronic findings as described Interpreted and Authenticated by: Jose Kennedy 11/13/21
--- NOTE | 2021-11-13 12:25 | Cat Scan Report ---
CLINICAL INFORMATION: Trauma COMPARISON: Lumbar spine CT 09/30/2021 Axial and sagittal reformatted images of the lumbar spine from abdomen and pelvic CT 03/01/2017. Plain films 01/19/2021 TECHNIQUE: 0.625 mm helical slices were obtained from the mid T12 through mid S2 vertebral bodies. Following reconstruction, 2.5 mm coronal, sagittal, and axial reformations (angle to the disc spaces) were processed. Exam was reviewed at bone and soft tissue windows.The exam was performed using radiation dose optimization techniques including, but not limited to, automated exposure control, adjustment of the mA and/or kV according to patient size and use of iterative reconstruction technique. FINDINGS: At L5-S1, there are chronic bilateral spondylitic defects with grade 1 spondylolisthesis featuring 8 mm of L5 anterior subluxation. This is unchanged. The remaining lumbar spine is anatomically aligned. Moderate chronic T12 compression fracture with approximately 30% loss of vertebral height anteriorly is unchanged from 01/19/2021 plain film. There are multiple chronic Schmorl's nodes invaginating the superior T12 endplate. No evidence of acute fracture resulting from recent trauma. The region of the conus medullaris and cauda equina roots are normal. There are no soft tissue abnormalities. At T11-T12, mild broad disc protrusion results in minimal thecal sac impingement. The T12-L1, L1-2 and L2-3 disc levels are normal. At L3-4, mild broad disc protrusion results in minimal thecal sac impingement and slight IV foraminal narrowing. No change At L4-5, moderate broad disc protrusion minimally impinges the thecal sac and results in slight bilateral IV foraminal narrowing. At L5-S1, bilateral spondylolysis, moderate broad disc protrusion and grade 1 spondylolisthesis results in severe bilateral IV foraminal narrowing. There is marked impingement of the exiting L5 nerve roots between the disc and is subluxed L5 pedicles. Central canal remains normal width. No change from prior exam IMPRESSION: 1. Moderate chronic T12 compression fracture-unchanged from plain film less than one year prior-01/19/2021. No acute fracture identified. 2. Chronic bilateral L5-S1 spondylolysis with grade 1 spondylolisthesis and broad disc protrusion. This results in severe bilateral IV foraminal narrowing with marked impingement exiting L5 nerve roots. No change from 2017 CT Interpreted and Authenticated by: Jose Kennedy 11/13/21
[2021-11-13] MEDS ORDERED: METHOCARBAMOL (PP) 750 MG TABLET (#4) PO ONE (12:33)
[2021-11-13] MEDS ORDERED: METHOCARBAMOL 750 MG TABLET PO ONE (12:36)
[2021-11-13 13:11] LABS: Basophils # (Auto) 0.09 K/mcL (0.00-0.30); Basophils % (Auto) 0.7 % (0.0-2.0); Eosinophils # (Auto) 0.05 K/mcL (0.00-0.70); Eosinophils % (Auto) 0.4 % (0.0-7.0); Hematocrit 35.2 % (40.1-51.0); Hemoglobin 11.2 g/dL (13.7-17.5); Lymphocytes # (Auto) 0.56 K/mcL (1.50-4.80); Lymphocytes % (Auto) 4.7 % (15.5-49.0); Mean Cell Volume 88.7 fL (80.0-100.0); Mean Corpuscular HGB Conc 31.8 g/dL (31.0-36.0); Mean Platelet Volume 9.9 fL (7.4-10.4); Monocytes # (Auto) 0.92 K/mcL (0.10-0.90); Monocytes % (Auto) 7.7 % (1.0-12.0); Neutrophils % (Auto) 85.3 % (38.0-78.0); Platelet Count 281 K/mcL (140-440); RBC 3.97 M/mcL (4.63-6.08); Red Cell Distribution Width 15.1 % (11.5-14.5)
--- NOTE | 2021-11-13 13:23 | Emergency Department Note ---
HPI General Chief complaint: Fall Stated complaint: fall Time Seen by Provider: 11/13/21 09:50 Source: patient and EMS Mode of arrival: EMS History of Present Illness HPI Narrative: Narrative: This is a 66-year-old male with multiple chronic comorbidities including ESRD recently on hemodialysis who presents after a fall and unable to get up. Patient normally gets around with a walker he states that he felt lightheaded he checked his blood sugar and it was in the 60s much lower for him than what he is used to. He fell over he denies hitting his head or loss of consciousness. He is complaining of lower back pain, thoracic back pain, bilateral shoulder pain, bilateral knee pain. He denies any new chest pain or shortness of breath from his baseline he reports chronic edema. Related Data Home Medications Medication Instructions Recorded Confirmed amitriptyline 10 mg tablet 10 mg PO QHS 10/07/14 11/13/21 aspirin 81 mg chewable tablet 81 mg PO QDAY 10/07/14 11/13/21 insulin aspart U-100 100 unit/mL 30 unit subcut .COMPLEX PRN Blood 07/14/18 11/14/21 (3 mL) subcutaneous pen Sugar - High warfarin 5 mg tablet 5 mg PO DAILY 11/26/18 11/13/21 cholecalciferol (vitamin D3) 1,250 1,250 mcg PO QWEEK 11/19/19 11/13/21 mcg (50,000 unit) capsule allopurinol 100 mg tablet 100 mg PO QDAY 02/28/20 11/13/21 simvastatin 40 mg tablet 40 mg PO QHS 02/28/20 11/13/21 blood sugar diagnostic (Freestyle #10 ea 04/10/20 11/13/21 InsuLinx Test Strips) flash glucose sensor (FreeStyle #1 ea 04/10/20 11/13/21 [place] 14 Day Sensor kit) insulin aspar prot-insulin aspart 5 unit subcut BID 04/10/20 11/14/21 100 unit/mL (70-30) subcutaneous pen (Novolog Mix 70-30FlexPen U-100) insulin glargine 100 unit/mL (3 10 unit subcut QPM 04/10/20 11/14/21 mL) subcutaneous pen insulin syringe-needle U-100 1/2 ##1 04/10/20 11/13/21 mL 29 X 3/4" levothyroxine 75 mcg capsule 75 mcg PO QDAY 08/20/21 11/13/21 metoprolol succinate 50 mg 75 mg PO BID 08/20/21 11/13/21 tablet,extended release 24 hr sacubitril 24 mg-valsartan 26 mg 0.5 tab PO BID 11/13/21 11/13/21 tablet (Entresto) sevelamer HCl 800 mg tablet 1,699 mg PO TID 11/13/21 11/13/21 Previous Rx's Medication Instructions Recorded torsemide 100 mg tablet See Rx Instructions PO QAM #30 tabs 10/26/21 Allergies Allergy/AdvReac Type Severity Reaction Status Date / Time adhesive tape Allergy Unknown Rash Verified 11/13/21 19:20 lactose Allergy Unknown Diarrhea Verified 11/13/21 19:20 NSAIDS (Non-Steroidal Allergy Unknown Kidney Verified 11/13/21 19:20 Anti-Inflamma Disease castile soap Allergy Unknown Rash Uncoded 11/13/21 19:20 intravascular constrast Allergy Unknown Unknown Uncoded 08/20/21 13:27 Review of Systems ROS ROS Narrative: Narrative: All systems ED: reviewed and negative except as stated. [facility] Narrative Patient History Narrative: Narrative: Medical/Surgical/Family History All Active Problems (Updated 11/14/21 @ 08:52 by Augustine Diane MD) Hypoglycemia (Acute) Fall (Acute) Pulmonary nodule (Acute) Fall (Acute) Asthma (Chronic) Atrial fibrillation (Chronic) Cardiomyopathy (Chronic) Secondary cardiomyopathy (Chronic) Cerebrovascular disease (Chronic) Coronary artery disease (Chronic) Diabetes mellitus, type II (Chronic) Gout (Chronic) Hyperlipidemia (Chronic) Hypertension, essential (Chronic) Ischemic cardiomyopathy (Chronic) Lactose intolerance (Chronic) Acute anterior myocardial infarction (Chronic) Obesity (Chronic) Onychomycosis (Chronic) Retinopathy, diabetic, background (Chronic) Seminoma (Chronic) Spina bifida (Chronic) Ventricular aneurysm (Chronic) Fracture of thoracic vertebra, closed (Chronic) Ulcer of foot (Chronic) Venous stasis ulcer (Chronic) Hypoglycemia due to insulin (Chronic) Diabetes mellitus type 2, uncontrolled, with complications (Chronic) Morbid obesity due to excess calories (Chronic) Hematocele (Chronic) Chest pain (Chronic) Bronchitis (Chronic) Congestive heart failure (Chronic) Anasarca associated with disorder of kidney (Chronic) Fatigue (Chronic) Familial polyposis (Chronic) Diabetic neuropathy (Chronic) Venous stasis of both lower extremities (Chronic) Fatty liver (Chronic) Monitoring for anticoagulant use (Chronic) Proliferative diabetic retinopathy (Chronic) Shoulder joint pain (Chronic) Body mass index (bmi) 30.0-30.9, adult (Chronic) Chronic back pain (Chronic) Disease of liver (Chronic) Cellulitis (Chronic) Myopathy (Chronic) Presbyopia (Chronic) Nuclear senile cataract (Chronic) Open angle glaucoma with borderline findings (Chronic) Hip pain (Chronic) Strain of right knee (Chronic) Pain crisis (Chronic) Open wound of lower leg (Chronic) Shoulder pain (Chronic) Influenza-like illness (Chronic) Diabetic foot ulcer (Chronic) Mediastinal lymphadenopathy (Chronic) Neuropathic ulcer of foot due to type 2 diabetes mellitus (Chronic) Echocardiogram abnormal (Chronic) Open wound of finger of left hand (Chronic) Anasarca (Chronic) Eruption due to drug (Chronic) Hypotension (Chronic) Nausea (Chronic) Upper respiratory infection (Chronic) Urinary tract infection (Chronic) Orthostatic hypotension (Chronic) Hyperglycemia due to type 2 diabetes mellitus (Chronic) Nonhealing nonsurgical wound limited to breakdown of skin (Chronic) Foreign body in ear (Chronic) Chronic end-stage systolic heart failure (Chronic) Acute lower gastrointestinal bleeding (Chronic) Anemia (Chronic) Hypoglycemia (Chronic) Type 2 DM with CKD stage 3 and hypertension (Chronic) Chronic systolic CHF (congestive heart failure), NYHA class 2 (Chronic) Secondary hyperparathyroidism of renal origin (Chronic) GERD (gastroesophageal reflux disease) (Chronic) Macular degeneration (Chronic) History of stroke (Chronic) CKD stage G3b/A3, GFR 30-44 and albumin creatinine ratio >300 mg/g (Chronic) Drug-induced hyperkalemia (Chronic) Open wound of right lower leg (Chronic) Diabetes (Chronic) Lumbar spondylosis (Chronic) Acute exacerbation of chronic low back pain (Acute) Fall in shower (Acute) ESRD on hemodialysis (Acute) PVD (peripheral vascular disease) (Acute) Chronic kidney disease, stage 3b (Chronic) Scrotal swelling (Acute) Fluid overload (Acute) Hypoglycemia (Acute) Chronic systolic CHF (congestive heart failure), NYHA class 4 (Acute) Medical History (Updated 11/14/21 @ 08:52 by Augustine Diane MD) Acute anterior myocardial infarction Anasarca Asthma Atrial fibrillation Body mass index (bmi) 30.0-30.9, adult Cardiomyopathy Cellulitis Cerebrovascular disease Chronic back pain Chronic kidney disease, stage 3b Coronary artery disease Diabetes mellitus, type II Diabetic foot ulcer Diabetic neuropathy Disease of liver Echocardiogram abnormal Eruption due to drug Familial polyposis Fatigue Fatty liver Fracture of thoracic vertebra, closed T11-T12 GERD (gastroesophageal reflux disease) Gout on allopurinol and probenecid => d/c probenecid if renal function continues to get worse will need to stop probenecid When last measured uric acid was 7.4 in January 2020 Hip pain History of stroke Hyperlipidemia TG elevated to 510, uncontrolled DM with metabolic syndrome contributing ct statins imp to get DM under control Hypertension, essential BP at goal ct current meds will need to start ACEI or ARB given proteinuria, will start next visit Hypotension Influenza-like illness Ischemic cardiomyopathy Lactose intolerance Lumbar spondylosis Macular degeneration Mediastinal lymphadenopathy Monitoring for anticoagulant use Myopathy Nausea Neuropathic ulcer of foot due to type 2 diabetes mellitus Nuclear senile cataract Obesity Onychomycosis Open angle glaucoma with borderline findings Open wound of finger of left hand Open wound of lower leg Pain crisis Pre-syncope Presbyopia Proliferative diabetic retinopathy Retinopathy, diabetic, background as above may take short acting prior to meals low carb diet discussed needs to see an news analyst, further management deferred to PCP Secondary cardiomyopathy Seminoma Shoulder joint pain Shoulder pain Spina bifida with grade I spondylolisthesis Strain of right knee Ulcer of foot Upper respiratory infection Venous stasis of both lower extremities Venous stasis ulcer Bilateral LE Ventricular aneurysm Left Surgical History History of angioplasty History of automatic internal cardiac defibrillator (AICD) History of colonoscopy (08/18/09) History of implantable cardioverter-defibrillator (ICD) placement (06/01/09) Defibrillator Implant History of knee surgery (06/20/94) knee scope Right History of orchiectomy 1994 right side History of pacemaker (06/01/09) Type: [facility] History of surgical removal of skin lesion 2006 Family History Unknown Family history unknown Social History Smoking Status: Never smoker Alcohol Intake Frequency: former alcohol drinker Exam Narrative Narrative: Narrative: Vital signs noted General: Awake. Alert. Appears chronically ill, obese, older than stated age HEENT: NCAT PERRL EOMI. No conjunctivitis. Membranes moist. Neck: Supple, trachea midline Cardiovascular: RRR. Tunneled catheter Respiratory: No respiratory distress. Breath sounds equal. Lungs clear. Gastrointestinal: Soft. No tenderness, anasarca Musculoskeletal: Diffuse edema, 3+ pitting to lower extremities Skin: Lower extremity bruising and skin tears bilaterally Neurologic: Alert and oriented x3 difficult to lift his legs up off the bed Course Vital Signs Vital signs: Vital Signs Temperature 97.2 F 11/13/21 09:52 Pulse Rate 83 11/13/21 09:52 Respiratory Rate 20 11/13/21 09:52 Blood Pressure 98/75 11/13/21 09:52 Pulse Oximetry (%) 100 11/13/21 09:52 Oxygen Delivery Method 11/13/21 09:52 Temperature 97.1 F 11/14/21 08:01 Pulse Rate 79 11/14/21 06:01 Respiratory Rate 25 H 11/14/21 08:01 Blood Pressure 116/72 11/14/21 08:01 Pulse Oximetry (%) 92 11/14/21 08:01 Oxygen Delivery Method 11/14/21 08:01 Oxygen Flow Rate (L/min) 2 11/14/21 06:01 MDM MDM Narrative Medical decision making narrative: Narrative: This is a 66-year-old male he has had recent visits to the emergency department for falls. His fall is likely secondary to hypoglycemia. He has multiple medical comorbidities the [facility] will help [facility] him in a rehab facility. However they are unable to get him in until another 2 days. Patient is in significant pain requiring pain medications here in the emergency department. He looks to be in poor health which is likely chronic but the family and myself have concerns about letting this patient go home for the next 2 days until he can be in a rehab facility. It takes multiple staff members just to have him sit up. I did speak with the hospitalist about observing him for further evaluation they are agreeable. In addition patient does have a pulmonary nodule which will need outpatient biopsy he has stable mediastinal lymphadenopathy. Patient is denies any history of inflammatory lung disease such as sarcoidosis or other chronic lung infection. Lab Data Result diagrams: 11/14/21 05:43 11/14/21 05:43 Labs: Lab Results 11/13/21 11/13/21 11/13/21 Range/Units 10:29 10:29 10:31 WBC 12.0 H (4.5-11.0) K/mcL RBC 3.97 L (4.63-6.08) M/mcL Hgb 11.2 L (13.7-17.5) g/dL Hct 35.2 L (40.1-51.0) % POC Hct 35.0 L (41-55) MCV 88.7 (80.0-100.0) fL MCH 28.2 (26.0-34.0) pg MCHC 31.8 (31.0-36.0) g/dL RDW 15.1 H (11.5-14.5) % Plt Count 281 (140-440) K/mcL MPV 9.9 (7.4-10.4) fL Immature Gran % (Auto) 1.2 H (0.0-0.5) % Neut % (Auto) 85.3 H (38.0-78.0) % Lymph % (Auto) 4.7 L (15.5-49.0) % [place] % (Auto) 7.7 (1.0-12.0) % Eos % (Auto) 0.4 (0.0-7.0) % Baso % (Auto) 0.7 (0.0-2.0) % Lymph # (Auto) 0.56 L (1.50-4.80) K/mcL [place] # (Auto) 0.92 H (0.10-0.90) K/mcL Eos # (Auto) 0.05 (0.00-0.70) K/mcL Baso # (Auto) 0.09 (0.00-0.30) K/mcL Immature Gran # 0.14 H (0.00-0.05) K/mcl Absolute Neutrophils 10.25 H (1.80-8.00) K/mcL PT 29.1 H (11.9-14.5) sec INR 2.6 H (0.9-1.1) POC Sodium 133 (133-145) POC Potassium 5.1 (3.3-5.1) POC Chloride 96 (96-108) POC Total CO2 30.0 (22-30) POC BUN 98 H (6-20) POC Creatinine 3.6 H (0.6-1.2) POC Glucose 152 H (70-105) POC WB Ioniz Calcium 1.10 L (1.16-1.32) Discharge Plan Patient/Caregiver Discharge Instructions Pt seen by [employer]/PA only: No Clinical Impression: Hypoglycemia, Fall, Pulmonary nodule Activity: resume usual activities as tolerated Patient Disposition: Xfer As Outpt/Obs ([facility]) Condition: Fair Discharge Date/Time: 11/13/21 13:55 Discharge Comment: Discharged 1355 to Med/Surg
--- NOTE | 2021-11-13 14:10 | Internal Med History&Physical ---
HPI History of Present Illness Patient information: Note initiated : 11/13/21 at 1:51 pm Service Date, if different from initiated Date: [] Patient: Alfredo Mccall 66 y/o M admitted on for fall. Chief Complaint: [] History of present illness: Mr. Mccall is a 66 year old with multiple comorbidities including insulin- dependent type 2 diabetes mellitus complicated by peripheral neuropathy, peripheral vascular disease, and diabetic foot wounds, hyperlipidemia, coronary artery disease, atrial fibrillation, severe cardiomyopathy status post AICD, ESRD recently started on hemodialysis via tunneled central line, hypothyroidism, obesity who presented to the emergency department after an episode of near syncope and a fall at home. In the emergency department, the patient was unable to ambulate independently. Patient's family is also unable to take care of the patient due to his multiple comorbidities and body habitus. Work-up in the ED included CBC which an elevated WBC of 12,000, chemistry panel showed a normal potassium, elevated creatinine as expected for ESRD, [id number] glucose was 152. A CT chest without contrast showed a 4 mm pleural-based nodule in the anterior basilar segment of the left lower lobe which was new compared to a CT scan 4 years ago, there was also a small cavitary nodule in the posterior basilar segment of the right lower lobe that was also new. There were multiple moderately enlarged lymph nodes in the lower mediastinotomy hilum which were stable compared to a CT chest about 4 years ago. Radiology recommended a follow-up CT chest in about 3 months. There was a chronic appearing T12 compression fracture as well as chronic bilateral L5-S1 spondylolysis with grade 1 spondylolisthesis and broad disc protrusion. A 3 view bilateral knee x-ray did not show any evidence of fractures. On exam, the patient appears to be chronically but not acutely ill. He has a tunneled central line in his right chest, multiple chronic wounds on his bilateral lower extremity, recent wounds on his right lower extremity. The patient has pitting edema up to his knees bilaterally. We reviewed CODE STATUS in detail, the patient wishes to be full code. Review of systems Constitutional: no fever, fatigue, or weight loss Eyes: no vision changes or pain Cardiovascular: no chest pain, no palpitations Respiratory: no cough or dyspnea Gastrointestinal: no abdominal pain, no nausea, vomiting, or diarrhea Genitourinary: no dysuria or difficulty voiding Musculoskeletal: Bilateral lower extremity edema. Integumentary: Multiple wounds on bilateral lower extremities. Neurological: no focal weakness or numbness Psychiatric: no anxiety or depression Physical exam Head: Atraumatic, normal inspection. Eyes: normal appearance, no scleral icterus. Neck: full ROM Respiratory: no respiratory distress. Cardiovascular: normal rate and rhythm, S1, S2, pacemaker/defibrillator palpable in left upper chest. GI/Abdominal: soft, nontender, no guarding. Extremities: Bilateral lower extremity pitting edema up to knees, full range of motion, nontender. Neurological: CN II-XII intact, intact motor, intact sensation. Psychiatric: normal mood. Skin: Multiple chronic appearing wounds on bilateral lower extremities, acute wounds on right lower extremity. PFSH PFSH All Active Problems (Updated 11/08/21 @ 00:23 by Louie Goode MD) Scrotal swelling (Acute) Fluid overload (Acute) Hypoglycemia (Acute) Chronic kidney disease, stage 3b (Chronic) Asthma (Chronic) Atrial fibrillation (Chronic) Cardiomyopathy (Chronic) Secondary cardiomyopathy (Chronic) Cerebrovascular disease (Chronic) Coronary artery disease (Chronic) Diabetes mellitus, type II (Chronic) Gout (Chronic) Hyperlipidemia (Chronic) Hypertension, essential (Chronic) Ischemic cardiomyopathy (Chronic) Lactose intolerance (Chronic) Acute anterior myocardial infarction (Chronic) Obesity (Chronic) Onychomycosis (Chronic) Retinopathy, diabetic, background (Chronic) Seminoma (Chronic) Spina bifida (Chronic) Ventricular aneurysm (Chronic) Fracture of thoracic vertebra, closed (Chronic) Ulcer of foot (Chronic) Venous stasis ulcer (Chronic) Hypoglycemia due to insulin (Chronic) Diabetes mellitus type 2, uncontrolled, with complications (Chronic) Morbid obesity due to excess calories (Chronic) Hematocele (Chronic) Chest pain (Chronic) Bronchitis (Chronic) Congestive heart failure (Chronic) Anasarca associated with disorder of kidney (Chronic) Fatigue (Chronic) Familial polyposis (Chronic) Diabetic neuropathy (Chronic) Venous stasis of both lower extremities (Chronic) Fatty liver (Chronic) Monitoring for anticoagulant use (Chronic) Proliferative diabetic retinopathy (Chronic) Shoulder joint pain (Chronic) Body mass index (bmi) 30.0-30.9, adult (Chronic) Chronic back pain (Chronic) Disease of liver (Chronic) Cellulitis (Chronic) Myopathy (Chronic) Presbyopia (Chronic) Nuclear senile cataract (Chronic) Open angle glaucoma with borderline findings (Chronic) Hip pain (Chronic) Strain of right knee (Chronic) Pain crisis (Chronic) Open wound of lower leg (Chronic) Shoulder pain (Chronic) Influenza-like illness (Chronic) Diabetic foot ulcer (Chronic) Mediastinal lymphadenopathy (Chronic) Neuropathic ulcer of foot due to type 2 diabetes mellitus (Chronic) Echocardiogram abnormal (Chronic) Open wound of finger of left hand (Chronic) Anasarca (Chronic) Eruption due to drug (Chronic) Hypotension (Chronic) Nausea (Chronic) Upper respiratory infection (Chronic) Urinary tract infection (Chronic) Orthostatic hypotension (Chronic) Hyperglycemia due to type 2 diabetes mellitus (Chronic) Nonhealing nonsurgical wound limited to breakdown of skin (Chronic) Foreign body in ear (Chronic) Chronic end-stage systolic heart failure (Chronic) Acute lower gastrointestinal bleeding (Chronic) Anemia (Chronic) Hypoglycemia (Chronic) Type 2 DM with CKD stage 3 and hypertension (Chronic) Chronic systolic CHF (congestive heart failure), NYHA class 2 (Chronic) Secondary hyperparathyroidism of renal origin (Chronic) GERD (gastroesophageal reflux disease) (Chronic) Macular degeneration (Chronic) History of stroke (Chronic) CKD stage G3b/A3, GFR 30-44 and albumin creatinine ratio >300 mg/g (Chronic) Drug-induced hyperkalemia (Chronic) Open wound of right lower leg (Chronic) Diabetes (Chronic) Lumbar spondylosis (Chronic) Acute exacerbation of chronic low back pain (Acute) Fall in shower (Acute) ESRD on hemodialysis (Acute) PVD (peripheral vascular disease) (Acute) Medical History Acute anterior myocardial infarction Anasarca Asthma Atrial fibrillation Body mass index (bmi) 30.0-30.9, adult Cardiomyopathy Cellulitis Cerebrovascular disease Chronic back pain Chronic kidney disease, stage 3b Coronary artery disease Diabetes mellitus, type II Diabetic foot ulcer Diabetic neuropathy Disease of liver Echocardiogram abnormal Eruption due to drug Familial polyposis Fatigue Fatty liver Fracture of thoracic vertebra, closed T11-T12 GERD (gastroesophageal reflux disease) Gout on allopurinol and probenecid => d/c probenecid if renal function continues to get worse will need to stop probenecid When last measured uric acid was 7.4 in January 2020 Hip pain History of stroke Hyperlipidemia TG elevated to 510, uncontrolled DM with metabolic syndrome contributing ct statins imp to get DM under control Hypertension, essential BP at goal ct current meds will need to start ACEI or ARB given proteinuria, will start next visit Hypotension Influenza-like illness Ischemic cardiomyopathy Lactose intolerance Lumbar spondylosis Macular degeneration Mediastinal lymphadenopathy Monitoring for anticoagulant use Myopathy Nausea Neuropathic ulcer of foot due to type 2 diabetes mellitus Nuclear senile cataract Obesity Onychomycosis Open angle glaucoma with borderline findings Open wound of finger of left hand Open wound of lower leg Pain crisis Presbyopia Proliferative diabetic retinopathy Retinopathy, diabetic, background as above may take short acting prior to meals low carb diet discussed needs to see an play writer, further management deferred to PCP Secondary cardiomyopathy Seminoma Shoulder joint pain Shoulder pain Spina bifida with grade I spondylolisthesis Strain of right knee Ulcer of foot Upper respiratory infection Venous stasis of both lower extremities Venous stasis ulcer Bilateral LE Ventricular aneurysm Left Surgical History History of angioplasty History of automatic internal cardiac defibrillator (AICD) History of colonoscopy (08/18/09) History of implantable cardioverter-defibrillator (ICD) placement (06/01/09) Defibrillator Implant History of knee surgery (06/20/94) knee scope Right History of orchiectomy 1994 right side History of pacemaker (06/01/09) Type: [facility] History of surgical removal of skin lesion 2006 Family History Unknown Family history unknown Social History marital status: single 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 smoking status: Never smoker alcohol intake frequency: former alcohol drinker MEDS/ALLERGIES Home Medications and Allergies Home Medications Medication Instructions Recorded Confirmed Type amitriptyline 10 mg tablet 10 mg PO QHS 10/07/14 11/13/21 History aspirin 81 mg chewable tablet 81 mg PO QDAY 10/07/14 11/13/21 History insulin aspart U-100 100 unit/mL 30 unit subcut .COMPLEX PRN Blood 07/14/18 08/20/21 History (3 mL) subcutaneous pen Sugar - High warfarin 5 mg tablet 5 mg PO DAILY 11/26/18 11/13/21 History cholecalciferol (vitamin D3) 1,250 1,250 mcg PO QWEEK 11/19/19 11/13/21 History mcg (50,000 unit) capsule allopurinol 100 mg tablet 100 mg PO QDAY 02/28/20 11/13/21 History simvastatin 40 mg tablet 40 mg PO QHS 02/28/20 11/13/21 History blood sugar diagnostic (Freestyle #10 ea 04/10/20 11/13/21 History InsuLinx Test Strips) flash glucose sensor (FreeStyle #1 ea 04/10/20 11/13/21 History [place]wood 14 Day Sensor kit) insulin aspar prot-insulin aspart 5 unit subcut BID 04/10/20 08/20/21 History 100 unit/mL (70-30) subcutaneous pen (Novolog Mix 70-30FlexPen U-100) insulin glargine 100 unit/mL (3 10 unit subcut QPM 04/10/20 08/20/21 History mL) subcutaneous pen insulin syringe-needle U-100 /2 ##1 04/10/20 11/13/21 History mL 29 X 3/4" levothyroxine 75 mcg capsule 75 mcg PO QDAY 08/20/21 11/13/21 History metoprolol succinate 50 mg 75 mg PO BID 08/20/21 11/13/21 History tablet,extended release 24 hr torsemide 100 mg tablet See Rx Instructions PO QAM #30 tabs 10/26/21 11/13/21 Rx sacubitril 24 mg-valsartan 26 mg 0.5 tab PO BID 11/13/21 11/13/21 History tablet (Entresto) sevelamer HCl 800 mg tablet 1,699 mg PO TID 11/13/21 11/13/21 History Allergies Allergy/AdvReac Type Severity Reaction Status Date / Time adhesive tape Allergy Unknown Rash Verified 11/13/21 09:57 lactose Allergy Unknown Unknown Verified 11/13/21 09:57 NSAIDS (Non-Steroidal Allergy Unknown Kidney Verified 11/13/21 09:57 Anti-Inflamma Disease castile soap Allergy Unknown Unknown Uncoded 08/20/21 13:27 intravascular constrast Allergy Unknown Unknown Uncoded 08/20/21 13:27 EXAM Constitutional Vitals: Temp Pulse Resp BP Pulse Ox O2 Del Method 97.2 F 86 15 89/78 99 11/13/21 09:52 11/13/21 13:31 11/13/21 13:31 11/13/21 13:31 11/13/21 13:31 09/13/22 09:52 DATA Data Completed and Pending Labs: Labs from last 24 hours 11/13/21 11/13/21 10:31 10:29 WBC 12.0 H RBC 3.97 L Hgb 11.2 L Hct 35.2 L POC Hct 35.0 L MCV 88.7 MCH 28.2 MCHC 31.8 RDW 15.1 H Plt Count 281 MPV 9.9 Immature Gran % (Auto) 1.2 H Neut % (Auto) 85.3 H Lymph % (Auto) 4.7 L Yancey % (Auto) 7.7 Eos % (Auto) 0.4 Baso % (Auto) 0.7 Lymph # (Auto) 0.56 L Yancey # (Auto) 0.92 H Eos # (Auto) 0.05 Baso # (Auto) 0.09 Immature Gran # 0.14 H Absolute Neutrophils 10.25 H POC Sodium 133 POC Potassium 5.1 POC Chloride 96 POC Total CO2 30.0 POC BUN 98 H POC Creatinine 3.6 H POC Glucose 152 H POC WB Ioniz Calcium 1.10 L A/P Narrative A/P Narrative: Assessment: 66-year-old male with multiple comorbidities including insulin- dependent type 2 diabetes mellitus complicated by peripheral neuropathy, peripheral vascular disease, and diabetic foot wounds, hyperlipidemia, coronary artery disease, atrial fibrillation, severe cardiomyopathy status post AICD, ESRD recently started on hemodialysis via tunneled central line, hypothyroidism, obesity who presented to the emergency department after an episode of near sync ope and a fall at home. The patient has been struggling to take care of himself at home, family also struggling due to the patient's multiple comorbidities and body habitus. Prior to this admission, a plan was established for the patient to go to low intensity rehab this or Friday. Family is unable to take care of the patient at this time. Hospital medicine was asked to admit the frank ent for observation until the patient can go to rehab. Plan -Admit to observation. -Home medication reconciliation, continue important medications. -Correction Humalog SSIlow for now. -Coumadin dosing per pharmacy. -Nephrology consulted for hemodialysis. -Wound cares for multiple lower extremity acute to subacute and chronic wounds. -Hemodialysis/diabetic diet. -PT consult. -Case management. -DVT prophylaxis: On Coumadin. -CODE STATUS: Full -Disposition: Low intensity rehab as planned later this week. Pulmonology referral at discharge for left lower lobe pleural based nodule and right lower lobe cavitary nodule noted on CT chest 11/13/21. Follow-up with [facility] for bilateral lower extremity wounds. Time Spent With Patient Time: Total time spent is greater than 50% in coordination of care (as documented) at patient's floor/unit and/or counseling patient:
[2021-11-13] MEDS ORDERED: SENNOSIDES 1 TABLET PO PRN ×2 (14:51)
[2021-11-13] MEDS ORDERED: DEXTROSE 31 GM ORAL.SUSP PO PRN (14:51)
[2021-11-13] MEDS ORDERED: 0.9 % SODIUM CHLORIDE 10 ML SYRINGE IV SCH (14:51)
[2021-11-13] MEDS ORDERED: ONDANSETRON 4 MG/2 ML VIAL IV PRN ×2 (14:51)
[2021-11-13] MEDS ORDERED: ACETAMINOPHEN 325 MG TABLET PO PRN (14:51)
[2021-11-13] MEDS ORDERED: LACTULOSE 20 GM/30 ML ORAL.SOL PO PRN (14:51)
[2021-11-13] MEDS ORDERED: DEXTROSE 50% 50 ML VIAL IV PRN (14:51)
[2021-11-13 15:39] LABS: INR 2.6 (0.9-1.1); Prothrombin Time 29.1 sec (11.9-14.5)
--- NOTE | 2021-11-13 16:34 | Nephrology Progress Note ---
SUBJECTIVE Subjective Patient information: Note initiated : 11/13/21 at 4:20 pm Service Date, if different from initiated Date: [] Patient: Alfredo Mccall 66 y/o M admitted on 11/13/21 for fall. Chief Complaint: [] Principal diagnosis: End stage systolic heart failure, hypotension, ESRD & FFT Interval history: Patient was recently admitted to a hospital in [place] with decompensated congestive heart failure worsening kidney function treated with an increase in diuretics and sent back to his PCP at [facility] with instructions that he needs dialysis soon. At time his creatinine was in the 4-5 range but before any vascular access procedure could be arranged, he became short of breath presented to [facility] and was sent to [facility] in [place] for placement of a dialysis catheter and initiation of hemodialysis. Its become apparent that this patient cannot be treated to such a extent that he is euvolemic and he has chronic edema and muscle weakness. This is led to frequent falls and shortness of breath to the point that he frequently arrives on nondialysis days to the emergency department. He was sent to a CHF specialist in [place] who recommended more fluid removal with dialysis not understanding that this is a [place]iphean effort with maximal fluid removal of 4 kg using all the outpatient adjustments humanly possible. Nonetheless his course is still spiraling downward and today he presented to the emergency department with the plan of a 3-day stay and then rehab. I personally do not think rehab is possible in the setting of end-stage systolic cardiomyopathy, and I think this patient is best served by hospice, but at this point in time the family and patient does not agree. Finally the patient will have to be dialyzed in the outpatient unit today due to staffing issues that are the results of [place]'s COVID-19 vaccination policy for healthcare facilities. As we pointed out to the ER, hospitalist staff, and powerhouse mechanic supervisor there is nothing hemodynamically different than in any other time we are asked to provide renal replacement therapy for this patient. Therefore the patient was routed from ED to outpatient unit and underwent HD with 3 kg of U/F and BP as low as 75/50 to high 95/60 mmHg. My recommendation would be dialysis in the outpatient setting today, followed by admission and daily ultrafiltration to see how much fluid can be removed while he awaits his 3-day Medicare stay and evaluation for physical therapy and rehab. Pertinent ROS: Weak, O2 requiring, low leg and scrotal edema Additional PMFSH (Level 3 Only): nothing new Constitutional Vitals: Vital Signs Temp Pulse Resp BP Pulse Ox O2 Del Method 36.2 C 86 15 89/78 99 11/13/21 09:52 11/13/21 13:31 11/13/21 13:31 11/13/21 13:31 11/13/21 13:31 11/13/21 09:52 Period Temp Pulse Resp BP Sys/Hernandez Pulse Ox O2 Del Method O2 Flow Rate Last 24 Hr 36.2 C 63-99 8-20 89-113/65-83 95-100 Room Air Intake and Output 11/13/21 11/13/21 11/13/21 05:59 13:59 21:59 Weight 156.489 kg Patient Weight 11/14/21 05:59 Weight 156.489 kg Intake & Output: Intake & Output 11/13/21 11/13/21 11/13/21 05:59 13:59 21:59 Weight 156.489 kg General appearance: average body habitus and moderate distress Head Head exam: Present normal inspection Eye Eye exam: Present EOMI, periorbital swelling and PERRL ENT ENT exam: Present mucous membranes dry Neck Neck exam: Absent meningismus Respiratory Respiratory exam: Present accessory muscle use, prolonged expiratory phase and respiratory distress Additional comments: Pursed lip breathing Cardiovascular Cardiovascular exam: Present JVD, +S1, +S2 and systolic murmur Additional comments: AICD/PPM in place GI/Abdominal GI/Abdominal exam: Present normal bowel sounds exam: Present scrotal swelling Extremities Exam Additional comments: 2-3 (+) brany edema bilaterally Neurological Exam Neurological exam: Present alert and CN II-XII intact Psychiatric Psychiatric exam: Present depressed and flat affect Skin Skin exam: Present erythema and mottled Additional comments: echymosis A/P Narrative A/P Narrative: 1. End stage dilated cardiomyopathy with rLVEF Limited options due to low BP and edema Recently switched to low dose entresto but he needs inotropic support 2. Severe Cardiorenal disease leading to ESRD Difficult to dialyze due low BP. Cannot fix the fluid overload Situation is grave 3. More isolated U/F tomorrow and friday 4. Regular HD on 5. Combined pressor and inotropic support with dopamine 5 to 10 ug/min Plan of Treatment: 1. 3 kg U/F with HD today 2. Isolated U/F tomorrow 3. Combined Inotropic and chronotropic support with dopamine as opposed to the alpha agonist Norepi Time Spent With Patient Time: Total time spent is greater than 50% in coordination of care (as documented) at patient's floor/unit and/or counseling patient:
[2021-11-13] MEDS ORDERED: WARFARIN 5 MG TABLET PO ONE (18:00)
[2021-11-13] MEDS: 0.9 % SODIUM CHLORIDE 10 ML SYRINGE IV SCH ×2 (19:30→21:28)
[2021-11-13] MEDS: INSULIN LISPRO 1 UNIT/0.01 ML UNIT SQ SCH ×2 (19:30→20:52)
[2021-11-13] MEDS: DOCUSATE SODIUM 100 MG CAPSULE PO SCH (20:50)
[2021-11-13] MEDS: HYDROcodone/APAP 5/325MG TABLET PO PRN (20:50)
[2021-11-13] MEDS: AMITRIPTYLINE 10 MG TABLET PO SCH (20:50)
[2021-11-13] MEDS: SIMVASTATIN 40 MG TABLET PO SCH (20:50)
[2021-11-13] MEDS: SEVELAMER 800 MG TABLET PO SCH (20:50)
[2021-11-13] MEDS ORDERED: METOPROLOL SUCCINATE 50 MG TAB.XL.24H PO ONE (21:00)
[2021-11-13] MEDS ORDERED: SACUBITRIL PO SCH (21:00)
[2021-11-13] MEDS ORDERED: [UNRECOGNIZED DRUG - OTHER] PO SCH (21:00)
[2021-11-13] MEDS ORDERED: VALSARTAN PO SCH (21:00)
[2021-11-13] MEDS ORDERED: DOCUSATE SODIUM 100 MG CAPSULE PO SCH (21:00)
[2021-11-14] MEDS: 0.9 % SODIUM CHLORIDE 10 ML SYRINGE IV SCH ×3 (05:38→20:47)
[2021-11-14 06:23] LABS: Hematocrit 36.1 % (40.1-51.0); Hemoglobin 11.4 g/dL (13.7-17.5); Mean Cell Volume 90.3 fL (80.0-100.0); Mean Corpuscular HGB Conc 31.6 g/dL (31.0-36.0); Mean Platelet Volume 9.8 fL (7.4-10.4); Platelet Count 263 K/mcL (140-440); Red Cell Distribution Width 15.3 % (11.5-14.5); WBC 8.2 K/mcL (4.5-11.0)
[2021-11-14 06:48] LABS: ALT/SGPT 16 U/L (<40); AST/SGOT 32 U/L (<40); Albumin 1.6 gm/dL (3.2-5.2); Albumin/Globulin Ratio 0.4 (1.0-2.3); Alkaline Phosphatase 309 U/L (39-117); Bilirubin,Direct 0.3 mg/dL (<0.3); Bilirubin,Total 0.4 mg/dL (0.1-1.0); Blood Urea Nitrogen 57 mg/dL (8-23); Carbon Dioxide 28 mmol/L (22-30); Chloride 95 mmol/L (96-108); Globulin 4.3 gm/dL (2.2-3.7); Glomerular Filtration Rate 29; Glucose 181 mg/dL (70-105); Lactate Dehydrogenase 254 U/L (135-225); Phosphorous 3.9 mg/dL (2.5-4.5); Triglycerides 96 mg/dL (<150); Uric Acid 4.9 mg/dL (2.5-8.0)
[2021-11-14] MEDS: LEVOTHYROXINE 75 MCG TABLET PO SCH (07:26)
[2021-11-14] MEDS: INSULIN LISPRO 1 UNIT/0.01 ML UNIT SQ SCH ×4 (07:30→20:43)
[2021-11-14] MEDS: SEVELAMER 800 MG TABLET PO SCH ×3 (08:06→17:45)
[2021-11-14] MEDS ORDERED: SACUBITRIL VALSARTAN PO SCH (09:00)
[2021-11-14] MEDS ORDERED: TORSEMIDE 100 MG PO SCH (09:00)
[2021-11-14 09:06] LABS: Anisocytosis RARE (None Seen); Basophils % (Manual) 1 % (0-2); Eosinophils % (Manual) 2 % (0-7); Lymphocytes % 7 % (15-49); Monocytes % (Manual) 7 % (1-12); Platelet Estimate NORMAL (Normal); RBC Morphology ABNORMAL (Normal); Segmented Neutrophils % 83 % (38-78)
[2021-11-14 10:06] LABS: INR 5.8 (0.9-1.1); Prothrombin Time 53.7 sec (11.9-14.5)
[2021-11-14] MEDS ORDERED: Sodium Zirconium Cyclosilicate [Lokelma] 10 gm Packet PO PRN (10:36)
[2021-11-14] MEDS: ASPIRIN 81 MG TAB.CHEW PO SCH (12:10)
[2021-11-14] MEDS: DOCUSATE SODIUM 100 MG CAPSULE PO SCH ×2 (12:11→20:47)
[2021-11-14] MEDS: ALLOPURINOL 100 MG TABLET PO SCH (12:11)
--- NOTE | 2021-11-14 12:11 | Internal Med Progress Note ---
SUBJECTIVE Subjective Patient information: Note initiated : 11/14/21 at 12:08 pm Service Date, if different from initiated Date: [] Patient: Alfredo Mccall 66 y/o M admitted on 11/13/21 for fall. Chief Complaint: [] Principal diagnosis: End stage systolic heart failure, hypotension, ESRD & FFT Interval history: Mr. Mccall is a 66 year old with multiple comorbidities including insulin- dependent type 2 diabetes mellitus complicated by peripheral neuropathy, peripheral vascular disease, and diabetic foot wounds, hyperlipidemia, coronary artery disease, atrial fibrillation, severe cardiomyopathy status post AICD, ES RD recently started on hemodialysis via tunneled central line, hypothyroidism, obesity who presented to the emergency department after an episode of near syncope and a fall at home. In the emergency department, the patient was unable to ambulate independently. Patient's family is also unable to take care of the patient due to his multiple comorbidities and body habitus. Work-up in the ED included CBC which an elevated WBC of 12,000, chemistry panel showed a normal potassium, elevated creatinine as expected for ESRD, [id number] glucose was 152. A CT chest without contrast showed a 4 mm pleural-based nodule in the anterior basilar segment of the left lower lobe which was new compared to a CT scan 4 years ago, there was also a small cavitary nodule in the posterior basilar segment of the right lower lobe that was also new. There were multiple moderately enlarged lymph nodes in the lower mediastinotomy hilum which were stable compared to a CT chest about 4 years ago. Radiology recommended a follow-up CT chest in about 3 months. There was a chronic appearing T12 compression fracture as well as chronic bilateral L5-S1 spondylolysis with grade 1 spondylolisthesis and broad disc protrusion. A 3 view bilateral knee x-ray did not show any evidence of fractures. On exam, the patient appears to be chronically but not acutely ill. He has a tunneled central line in his right chest, multiple chronic wounds on his bilateral lower extremity, recent wounds on his right lower extremity. The patient has pitting edema up to his knees bilaterally. We reviewed CODE STATUS in detail, the patient wishes to be full code. 11/14 Patient tolerated dialysis fairly well yesterday, nephrology planning to continue hemodialysis again today and tomorrow. Holding Entresto as this is not formulary and it also will likely contribute to hypotension during hemodialysis. Physical exam Head: Atraumatic, normal inspection. Eyes: normal appearance, no scleral icterus. Neck: full ROM Respiratory: no respiratory distress. Cardiovascular: normal rate and rhythm, S1, S2, pacemaker/defibrillator palpable in left upper chest. GI/Abdominal: soft, nontender, no guarding. Extremities: Bilateral lower extremity pitting edema up to knees, full range of motion, nontender. Neurological: CN II-XII intact, intact motor, intact sensation. Psychiatric: normal mood. Skin: Multiple chronic appearing wounds on bilateral lower extremities, acute wounds on right lower extremity. Constitutional Vitals: Vital Signs Temp Pulse Resp BP Pulse Ox O2 Del Method O2 Flow Rate 97.5 F 82 13 101/57 100 2 11/14/21 12:01 11/14/21 11:53 11/14/21 12:01 11/14/21 12:01 11/14/21 12:01 11/14/21 08:01 11/14/21 06:01 Period Temp Pulse Resp BP Sys/Hernandez Pulse Ox O2 Del Method O2 Flow Rate Last 24 Hr 97.1 F-98.1 F 71-109 7-25 89-116/55-88 88-100 Nasal Cannula- Room Air 2-2 Intake and Output 11/13/21 11/14/21 11/14/21 21:59 05:59 13:59 Intake Total 240 Balance 240 Weight 156.291 kg Intake & Output: Intake & Output 11/13/21 11/14/21 11/14/21 21:59 05:59 13:59 Intake Total 240 Balance 240 Weight 156.291 kg Intake: Oral 240 Other: Meal Dinner Percent of Meal Consumed 100% Stool Size Small Stool Color Brown Stool Consistency Dry and Hard # Voids 1 OBJ DATA Labs CBC & Chem 7: 11/14/21 05:43 11/14/21 05:43 Labs: Abnormal Lab Results 11/14/21 11/14/21 11/14/21 09:02 05:43 05:43 WBC RBC 4.00 L Hgb 11.4 L Hct 36.1 L POC Hct RDW 15.3 H Immature Gran % (Auto) Neut % (Auto) Lymph % (Auto) Lymph # (Auto) Newton # (Auto) Seg Neutrophils % 83 H Lymphocytes % 7 L Immature Gran # Absolute Neutrophils RBC Morphology Abnormal A Anisocytosis Rare A PT 53.7 H INR 5.8 H* Sodium 132 L Chloride 95 L POC BUN BUN 57 H Creatinine 2.3 H POC Creatinine Glucose 181 H POC Glucose Calcium 8.0 L POC WB Ioniz Calcium Direct Bilirubin 0.3 H Alkaline Phosphatase 309 H Lactate Dehydrogenase 254 H C-Reactive Protein 9.20 H Albumin 1.6 L Globulin 4.3 H Albumin/Globulin Ratio 0.4 L 11/13/21 11/13/21 11/13/21 10:31 10:29 10:29 WBC 12.0 H RBC 3.97 L Hgb 11.2 L Hct 35.2 L POC Hct 35.0 L RDW 15.1 H Immature Gran % (Auto) 1.2 H Neut % (Auto) 85.3 H Lymph % (Auto) 4.7 L Lymph # (Auto) 0.56 L Newton # (Auto) 0.92 H Seg Neutrophils % Lymphocytes % Immature Gran # 0.14 H Absolute Neutrophils 10.25 H RBC Morphology Anisocytosis PT 29.1 H INR 2.6 H Sodium Chloride POC BUN 98 H BUN Creatinine POC Creatinine 3.6 H Glucose POC Glucose 152 H Calcium POC WB Ioniz Calcium 1.10 L Direct Bilirubin Alkaline Phosphatase Lactate Dehydrogenase C-Reactive Protein Albumin Globulin Albumin/Globulin Ratio Meds: Medications Acetaminophen (Acetaminophen 325 Mg Tablet) 650 mg PO Q6HP PRN; Protocol PRN Reason: Per Pain Protocol/Fever > 101 Hydrocodone Bitart/Acetaminophen (Hydrocodone/Apap 5/325mg Tablet) 1 tab PO Q4HP PRN; Protocol PRN Reason: Per Pain Protocol Last Admin: 11/13/21 20:50 Dose: 1 tab Allopurinol (Allopurinol 100 Mg Tablet) 100 mg PO QDAY [facility] Amitriptyline HCl (Amitriptyline 10 Mg Tablet) 10 mg PO QHS [facility] Last Admin: 11/13/21 20:50 Dose: 10 mg Aspirin (Aspirin 81 Mg Tab.Chew) 81 mg PO DAILY [facility] Dextrose (Dextrose 50% 50 Ml Vial) 0 ml IV UD PRN PRN Reason: Per Sliding Scale Diagnostic Test (Pha) (Accu-Chek 1 Each Strip) 1 each FS ACHS [facility] Last Admin: 11/14/21 11:53 Dose: 1 each Docusate Sodium (Docusate Sodium 100 Mg Capsule) 100 mg PO BID [facility] Last Admin: 11/13/21 20:50 Dose: 100 mg Glucose (Dextrose 31 Gm Oral.Susp) 15 gm PO PRN PRN PRN Reason: Hypoglycemia Insulin Human Lispro (Insulin Lispro 1 Unit/0.01 Ml Unit) 0 unit SQ ACHS [facility]; Protocol Last Admin: 11/14/21 11:53 Dose: 2 unit Lactulose (Lactulose 20 Gm/30 Ml Oral.Iris) 10 gm PO DAILYP PRN PRN Reason: Constipation Levothyroxine Sodium (Levothyroxine 75 Mcg Tablet) 75 mcg PO QAMAC [facility] Last Admin: 11/14/21 07:26 Dose: 75 mcg Ondansetron HCl (Ondansetron 4 Mg/2 Ml Vial) 4 mg IV Q4HP PRN; Protocol PRN Reason: Nausea And Vomiting Senna (Sennosides 1 Tablet) 2 tab PO HSP PRN PRN Reason: Constipation Sevelamer Carbonate (Sevelamer 800 Mg Tablet) 1,600 mg PO TIDCC [facility] Last Admin: 11/14/21 08:06 Dose: 1,600 mg Simvastatin (Simvastatin 40 Mg Tablet) 40 mg PO QHS [facility] Last Admin: 11/13/21 20:50 Dose: 40 mg Sodium Chloride (0.9 % Sodium Chloride 10 Ml Syringe) 10 ml IV Q8 [facility] Last Admin: 11/14/21 05:38 Dose: 10 ml Warfarin Sodium (Warfarin Per Pharmacy) 1 order PO DAILY@1400 [facility] Last Admin: 11/13/21 17:13 Dose: Not Given A/P Narrative A/P Narrative: Assessment: 66-year-old male with multiple comorbidities including insulin- dependent type 2 diabetes mellitus complicated by peripheral neuropathy, peripheral vascular disease, and diabetic foot wounds, hyperlipidemia, coronary artery disease, atrial fibrillation, severe cardiomyopathy status post AICD, ESRD recently started on hemodialysis via tunneled central line, hypothyroidism, obesity who presented to the emergency department after an episode of near syn cope and a fall at home. The patient has been struggling to take care of himself at home, family also struggling due to the patient's multiple comorbidities and body habitus. Prior to this admission, a plan was established for the patient to go to low intensity rehab this or Friday. Family is unable to take care of the patient at this time. Hospital medicine was asked to admit the patient for observation until the patient can go to rehab. Plan -Observation status. -Continue home allopurinol, amitriptyline, aspirin, levothyroxine, sevelamer, simvastatin, torsemide on non hemodialysis days. -Continue reduced Toprol dose of 75 mg at bedtime, previously was taking Toprol 75 mg twice daily. -Holding Entresto for now. -Correction Humalog SSIlow for now. -Coumadin dosing per pharmacy. -Nephrology following for hemodialysis. -Wound cares for multiple lower extremity acute to subacute and chronic wounds. -Hemodialysis/diabetic diet. -PT consult. -Case management. -DVT prophylaxis: On Coumadin. -CODE STATUS: Full -Disposition: Low intensity rehab as planned later this week, the patient qualifies for SNF because of a recent hospitalization in [place], [place]. Pulmonology referral at discharge for left lower lobe pleural based nodule and right lower lobe cavitary nodule noted on CT chest 11/13/21. Follow-up with [facility] for bilateral lower extremity wounds. Time Spent With Patient Time: Total time spent is greater than 50% in coordination of care (as documented) at patient's floor/unit and/or counseling patient:
--- NOTE | 2021-11-14 15:02 | Nephrology Progress Note ---
SUBJECTIVE Subjective Patient information: Note initiated : 11/14/21 at 2:57 pm Service Date, if different from initiated Date: [] Patient: Alfredo Mccall 66 y/o M admitted on 11/13/21 for fall. Chief Complaint: [weak, falls,] Principal diagnosis: End stage systolic heart failure, hypotension, ESRD & FFT Interval history: Patient is best described as end-stage cardiomyopathy with EF around 20%, hypotension, cardiorenal syndrome leading to institution of dialysis at tertiary care center in [facility]. Started outpatient dialysis at [facility] outpatient unit a month or so ago. Despite exceptional efforts by the dialysis staff there is no net weight loss with maximal ultrafiltration of 5 kg but he still remains 5 to 10 kg above his edema free weight. Limiting to fluid losses his blood pressure which frequently drops below 90. Medicine to use midodrine due to constriction of coronary vasculature. He was on Entresto as an outpatient but this is worsening his hypotension. In the place of Entresto I will try minidose captopril 3.125 mg every [address] of metoprolol succinate I will try half the dose of metoprolol tartrate 12.5 mg twice a day both with appropriate hold parameters. Was seen on dialysis today and did surprisingly well with isolated ultrafiltration up to 5 kg which if his weight is correct his postdialysis weight would be around 151 kg. My plan moving forward would be to dialyze him in the hospital if he is not discharged today or early tomorrow morning. He is discharged in the next 18 hours he should be dialyzed as an outpatient next-door in the outpatient unit prior to his placement in a correction for rehab. Pertinent ROS: Med changes as outlined above Additional PMFSH (Level 3 Only): Nothing new Constitutional Vitals: Vital Signs Temp Pulse Resp BP Pulse Ox O2 Del Method O2 Flow Rate 36.4 C 87 15 88/63 97 2 11/14/21 12:06 11/14/21 14:16 11/14/21 14:16 11/14/21 14:16 11/14/21 14:16 11/14/21 08:01 11/14/21 06:01 Period Temp Pulse Resp BP Sys/Hernandez Pulse Ox O2 Del Method O2 Flow Rate Last 24 Hr 36.2 C-36.7 C 71-109 11-25 75-116/47-88 88-100 Nasal Cannula- Room Air 2-2 Intake and Output 11/14/21 11/14/21 11/14/21 05:59 13:59 21:59 Intake Total 240 Output Total 5000 Balance -4760 Intake & Output: Intake & Output 11/14/21 11/14/21 11/14/21 05:59 13:59 21:59 Intake Total 240 Output Total 5000 Balance -4760 Intake: Oral 240 Output: Hemodialysis UF 5000 Other: Meal Lunch Percent of Meal Consumed 100% Feeding Ability Independent Stool Size Small Stool Color Brown Stool Consistency Dry and Hard # Voids 1 General appearance: mild distress Head Head exam: Present normal inspection Eye Eye exam: Present EOMI, periorbital swelling and PERRL ENT ENT exam: Present mucous membranes dry Neck Neck exam: Absent meningismus Respiratory Respiratory exam: Present accessory muscle use, decreased breath sounds and prolonged expiratory phase Additional comments: Improved from yesterday Cardiovascular Cardiovascular exam: Present irregular rhythm, +S1, +S2, +S3 (Palpable) and systolic murmur (2 out of 6); Absent rubs GI/Abdominal GI/Abdominal exam: Present soft and diminished bowel sounds Neurological Exam Neurological exam: Present alert, CN II-XII intact and oriented X3 Psychiatric Psychiatric exam: Present flat affect Skin Skin exam: Present mottled Additional comments: Ecchymoses A/P Assessment and plan (1) ESRD on hemodialysis: Status: Chronic (2) Chronic hypotension: Status: Chronic (3) Chronic systolic CHF (congestive heart failure), NYHA class 4: Status: Chronic (4) Secondary hyperparathyroidism of renal origin: Status: Chronic Comment: Trend intact PTH and phosphorus Plan Medications Acetaminophen (Acetaminophen 325 Mg Tablet) 650 mg PO Q6HP PRN; Protocol PRN Reason: Per Pain Protocol/Fever > 101 Hydrocodone Bitart/Acetaminophen (Hydrocodone/Apap 5/325mg Tablet) 1 tab PO Q4HP PRN; Protocol PRN Reason: Per Pain Protocol Last Admin: 11/13/21 20:50 Dose: 1 tab Allopurinol (Allopurinol 100 Mg Tablet) 100 mg PO QDAY [facility] Last Admin: 11/14/21 12:11 Dose: 100 mg Amitriptyline HCl (Amitriptyline 10 Mg Tablet) 10 mg PO QHS [facility] Last Admin: 11/13/21 20:50 Dose: 10 mg Aspirin (Aspirin 81 Mg Tab.Chew) 81 mg PO DAILY [facility] Last Admin: 11/14/21 12:10 Dose: 81 mg Captopril (Captopril 12.5 Mg Tablet) 3.125 mg PO TID [facility] Last Admin: 11/14/21 15:20 Dose: 3.125 mg Dextrose (Dextrose 50% 50 Ml Vial) 0 ml IV UD PRN PRN Reason: Per Sliding Scale Diagnostic Test (Pha) (Accu-Chek 1 Each Strip) 1 each FS [facility] Last Admin: 11/14/21 16:50 Dose: 1 each Docusate Sodium (Docusate Sodium 100 Mg Capsule) 100 mg PO BID [facility] Last Admin: 11/14/21 12:11 Dose: 100 mg Glucose (Dextrose 31 Gm Oral.Susp) 15 gm PO PRN PRN PRN Reason: Hypoglycemia Insulin Human Lispro (Insulin Lispro 1 Unit/0.01 Ml Unit) 0 unit SQ [facility]; Protocol Last Admin: 11/14/21 16:50 Dose: 3 unit Lactulose (Lactulose 20 Gm/30 Ml Oral.Iris) 10 gm PO DAILYP PRN PRN Reason: Constipation Levothyroxine Sodium (Levothyroxine 75 Mcg Tablet) 75 mcg PO QAMAC [facility] Last Admin: 11/14/21 07:26 Dose: 75 mcg Metoprolol Tartrate (Metoprolol Tartrate 25 Mg Tablet) 12.5 mg PO BID [facility] Ondansetron HCl (Ondansetron 4 Mg/2 Ml Vial) 4 mg IV Q4HP PRN; Protocol PRN Reason: Nausea And Vomiting Senna (Sennosides 1 Tablet) 2 tab PO HSP PRN PRN Reason: Constipation Sevelamer Carbonate (Sevelamer 800 Mg Tablet) 1,600 mg PO TIDCC [facility] Last Admin: 11/14/21 12:12 Dose: 1,600 mg Simvastatin (Simvastatin 40 Mg Tablet) 40 mg PO QHS [facility] Last Admin: 11/13/21 20:50 Dose: 40 mg Sodium Chloride (0.9 % Sodium Chloride 10 Ml Syringe) 10 ml IV Q8 [facility] Last Admin: 11/14/21 15:17 Dose: 10 ml Warfarin Sodium (Warfarin Per Pharmacy) 1 order PO DAILY@1400 [facility] Last Admin: 11/14/21 15:17 Dose: Not Given Narrative A/P Narrative: 1. ESRD with fluid overload and Hypotension. HD qTTS alternating with Isolated U/F q MWF till new dry weight achieved. Currently ~151 kg by hospital bed scale 2. End Stage systolic CHF class IV BP to low for entresto and current dose of metoprolol succinate Switch to minidose captopril 3.125 mg po q8 hours with appropriate hold parameters Switch to metoprolol tartrate 12.5 mg po BID with hold parameters 3. Hyperparathyroidism Renvela 1600 mg po aC Calcitriol 0.25 ug po qTTS at HD unit 4. Anemia of ESRD MELBA q 5. LV thrombosis on warfarin Plan of Treatment: As above. Need to know what D/C plans are from etc Next HD tomorrow as outpatient or in Hospital Follow up with CHF auto polisher in [place] after release from care facility Time Spent With Patient Time: Total time spent is greater than 50% in coordination of care (as documented) at patient's floor/unit and/or counseling patient: Total time spent with greater than 50% in coordination of care (as documented) at patient's floor/unit and/or counseling patient:: 25 - 35 minutes
[2021-11-14] MEDS: CAPTOPRIL 12.5 MG TABLET PO SCH ×2 (15:20→20:47)
[2021-11-14] MEDS: SIMVASTATIN 40 MG TABLET PO SCH (20:47)
[2021-11-14] MEDS: METOPROLOL TARTRATE 25 MG TABLET PO SCH ×2 (20:47→20:50)
[2021-11-14] MEDS: AMITRIPTYLINE 10 MG TABLET PO SCH (20:48)
[2021-11-14] MEDS ORDERED: METOPROLOL SUCCINATE 50 MG TAB.XL.24H PO SCH (21:00)
[2021-11-15] MEDS: 0.9 % SODIUM CHLORIDE 10 ML SYRINGE IV SCH ×3 (05:34→23:07)
[2021-11-15 06:56] LABS: INR 3.9 (0.9-1.1); Prothrombin Time 39.2 sec (11.9-14.5)
[2021-11-15] MEDS: LEVOTHYROXINE 75 MCG TABLET PO SCH (07:22)
[2021-11-15] MEDS: INSULIN LISPRO 1 UNIT/0.01 ML UNIT SQ SCH ×4 (07:27→20:57)
--- NOTE | 2021-11-15 08:33 | Nephrology Progress Note ---
SUBJECTIVE Subjective Patient information: Note initiated : 11/15/21 at 8:27 am Service Date, if different from initiated Date: [] Patient: Alfredo Mccall 66 y/o M admitted on 11/13/21 for fall. Chief Complaint: [] Principal diagnosis: End stage systolic heart failure, hypotension, ESRD & FFT Interval history: Stopped entresto and metoprolol succinate so we can hold Rx before [employer] (ie: shorter acting Rx like captopril and metoprolol tartrate) dosing limited by HYPOTENSION. HD qTTS and isolated U/F on MWF to try to remove excess fluid w/o BP ,80 mmHg which he seems to tolerate. This is not a feasible outpatient plan due to the constraints of HD staffing in the [facility] era. Post HD weight yesterday was 135 kg...down from 151 on admission. Vital Signs Temp Pulse Resp BP Pulse Ox O2 Del Method 11/15/21 08:02 36.1 C 86 24 H 89/62 100 11/15/21 07:00 77 18 101/65 94 11/15/21 07:53 100 Room Air 11/15/21 06:01 81 19 95/62 90 11/15/21 04:09 92 H 19 96 11/15/21 04:01 36.6 C 81 19 91/61 100 Room Air 11/15/21 03:01 75 16 91/57 96 11/15/21 02:01 105 H 12 95/76 100 11/15/21 01:01 91 H 18 100/55 86 L 11/14/21 20:00 98 Room Air 11/15/21 00:01 36.1 C 85 12 91/56 90 Room Air 11/14/21 23:01 81 14 91/66 98 Room Air 11/14/21 22:01 78 12 96/66 100 Room Air 11/14/21 21:01 89 12 89/74 99 Room Air 11/14/21 20:49 142 H 19 96 11/14/21 20:01 85 17 97/51 98 11/14/21 19:01 88 12 88/58 97 11/14/21 18:01 26 H 92/55 11/14/21 17:01 160 H 11 L 94/50 96 11/14/21 16:17 15 91/59 97 Room Air 11/14/21 16:16 17 76/61 97 Room Air 11/14/21 16:01 36.9 C 13 89/78 98 Room Air 11/14/21 15:58 15 102/52 98 Room Air 11/14/21 15:15 13 104/62 97 Room Air 11/14/21 15:01 13 87/61 97 Room Air 11/14/21 14:46 9 L 102/68 97 Room Air 11/14/21 14:30 18 103/63 98 Room Air 11/14/21 14:16 87 15 88/63 97 11/14/21 14:00 86 18 93/60 96 11/14/21 13:57 15 90/57 100 11/14/21 13:32 17 94/59 11/14/21 13:31 81 23 H 88/53 96 11/14/21 13:16 85 14 75/47 100 11/14/21 13:02 73 16 91/55 97 11/14/21 12:46 13 95/67 99 11/14/21 12:31 18 94/59 90 11/14/21 12:16 75 24 H 92/65 97 11/14/21 12:11 84 12 91/62 98 11/14/21 12:06 75 20 94/52 97 11/14/21 12:01 36.4 C 13 101/57 100 11/14/21 11:46 84 18 91/55 95 11/14/21 11:31 79 11 L 101/62 95 11/14/21 11:16 81 15 104/65 96 11/14/21 11:01 13 99/55 97 11/14/21 10:46 82 15 104/62 96 11/14/21 10:31 82 16 108/65 100 11/14/21 10:16 14 97/61 93 11/14/21 10:00 108 H 20 108/88 94 11/14/21 09:54 101 H 16 97/66 92 11/14/21 09:46 84 22 102/65 96 11/14/21 09:40 82 21 94/64 99 11/14/21 09:31 105 H 12 92/67 96 11/14/21 09:26 71 18 106/63 98 11/14/21 09:15 83 17 94/73 93 11/14/21 09:01 75 14 92/55 96 11/14/21 08:58 109 H 12 100/70 90 09/14/22 09:34 82 94/64 11/14/21 12:06 36.4 C 88 94/52 11/14/21 11:53 82 91/55 11/14/21 11:39 36.4 C 84 101/62 11/14/21 11:21 80 104/65 11/14/21 11:06 85 99/55 11/14/21 10:52 84 104/62 11/14/21 10:33 83 108/65 11/14/21 10:19 84 97/61 11/14/21 10:00 87 108/88 11/14/21 09:50 90 97/66 11/14/21 09:21 79 106/63 11/14/21 09:06 36.6 C 82 94/73 Intake and Output 11/14/21 11/15/21 11/15/21 21:59 05:59 13:59 Intake Total 720 Output Total 1 1 Balance 719 -1 Intake: Oral 720 Output: # of times incontinent of urine 1 1 Other: Meal Dinner Percent of Meal Consumed 100% Feeding Ability Independent Stool Size Smear Stool Color Brown # Voids 1 # of times incontinent of 1 Bowels Weight 140.115 kg Seen on HD. Weight post 5 kg U/F was 135.5 kg Pertinent ROS: N/A Additional PMFSH (Level 3 Only): N/A Constitutional Vitals: Vital Signs Temp Pulse Resp BP Pulse Ox O2 Del Method O2 Flow Rate 36.1 C 86 24 H 89/62 100 2 11/15/21 08:02 11/15/21 08:02 11/15/21 08:02 11/15/21 08:02 11/15/21 08:02 11/15/21 07:53 11/14/21 06:01 Period Temp Pulse Resp BP Sys/Hernandez Pulse Ox O2 Del Method O2 Flow Rate Last 24 Hr 36.1 C-36.9 C 71-160 9-26 75-108/47-88 86-100 Room Air-Room Air Intake and Output 11/14/21 11/15/21 11/15/21 21:59 05:59 13:59 Intake Total 720 Output Total 1 1 Balance 719 -1 Weight 140.115 kg Intake & Output: Intake & Output 11/14/21 11/15/21 11/15/21 21:59 05:59 13:59 Intake Total 720 Output Total 1 1 Balance 719 -1 Weight 140.115 kg Intake: Oral 720 Output: # of times incontinent of urine 1 1 Other: Meal Dinner Percent of Meal Consumed 100% Feeding Ability Independent Stool Size Smear Stool Color Brown # Voids 1 # of times incontinent of 1 Bowels General appearance: mild distress Head Head exam: Present normal inspection Eye Eye exam: Present EOMI and periorbital swelling Pupils: Present PERRL ENT ENT exam: Present mucous membranes moist Neck Neck exam: Present meningismus Respiratory Respiratory exam: Present prolonged expiratory phase and rales Cardiovascular Cardiovascular exam: Present +S1, +S2 and +S3 (palpable) GI/Abdominal GI/Abdominal exam: Present soft and diminished bowel sounds Extremities Exam Extremities exam: Present pedal edema ([place] edema) Neurological Exam Neurological exam: Present CN II-XII intact and oriented X3 Psychiatric Psychiatric exam: Present normal affect Skin Skin exam: Present cyanosis and erythema Additional comments: Ecchymosis A/P Assessment and plan (1) ESRD on hemodialysis: Status: Chronic (2) Chronic hypotension: Status: Chronic (3) Chronic systolic CHF (congestive heart failure), NYHA class 4: Status: Chronic Narrative Plan of Treatment: As above. Need to know what D/C plans are from etc Next Isolated U/F tomorrow still looking for maximal fluid removal. Follow up with CHF semiconductor processing technician in [place] after release from care facility Time Spent With Patient Time: Total time spent is greater than 50% in coordination of care (as documented) at patient's floor/unit and/or counseling patient:
[2021-11-15] MEDS: SEVELAMER 800 MG TABLET PO SCH ×3 (09:08→17:40)
[2021-11-15] MEDS ORDERED: MIDODRINE 5 MG TABLET PO PRN (09:17)
[2021-11-15] MEDS ORDERED: POLYETHYLENE GLYCOL 3350 17 GM PACKET PO PRN (10:17)
[2021-11-15] MEDS ORDERED: FLU VACC QS2022-23(6MOS UP)/PF 60 MCG/0.5 ML SYRINGE IM ONE (13:00)
[2021-11-15] MEDS: CAPTOPRIL 12.5 MG TABLET PO SCH ×3 (14:12→20:54)
[2021-11-15] MEDS: 0.9 % SODIUM CHLORIDE 250 ML IV SCH (14:13)
[2021-11-15] MEDS: METOPROLOL TARTRATE 25 MG TABLET PO SCH ×2 (14:13→20:53)
[2021-11-15] MEDS: DOPamine 400 MG in PREMIX 1 BAG IV SCH ×2 (14:13→18:10)
[2021-11-15] MEDS: ALLOPURINOL 100 MG TABLET PO SCH (14:22)
[2021-11-15] MEDS: DOCUSATE SODIUM 100 MG CAPSULE PO SCH ×2 (14:22→20:53)
[2021-11-15] MEDS: ASPIRIN 81 MG TAB.CHEW PO SCH (14:22)
--- NOTE | 2021-11-15 14:35 | Internal Med Progress Note ---
SUBJECTIVE Subjective Patient information: Note initiated : 11/15/21 at 2:31 pm Service Date, if different from initiated Date: [] Patient: Alfredo Mccall 66 y/o M admitted on 11/13/21 for fall. Chief Complaint: [] Principal diagnosis: End stage systolic heart failure, hypotension, ESRD & FFT Interval history: Mr. Mccall is a 66 year old with multiple comorbidities including insulin- dependent type 2 diabetes mellitus complicated by peripheral neuropathy, peripheral vascular disease, and diabetic foot wounds, hyperlipidemia, coronary artery disease, atrial fibrillation, severe cardiomyopathy status post AICD, ESR D recently started on hemodialysis via tunneled central line, hypothyroidism, obesity who presented to the emergency department after an episode of near syncope and a fall at home. In the emergency department, the patient was unable to ambulate independently. Patient's family is also unable to take care of the patient due to his multiple comorbidities and body habitus. Work-up in the ED included CBC which an elevated WBC of 12,000, chemistry panel showed a normal potassium, elevated creatinine as expected for ESRD, [id number]-[id number] glucose was 152. A CT chest without contrast showed a 4 mm pleural-based nodule in the anterior basilar segment of the left lower lobe which was new compared to a CT scan 4 years ago, there was also a small cavitary nodule in the posterior basilar segment of the right lower lobe that was also new. There were multiple moderately enlarged lymph nodes in the lower mediastinotomy hilum which were stable compared to a CT chest about 4 years ago. Radiology recommended a follow-up CT chest in about 3 months. There was a chronic appearing T12 compression fracture as well as chronic bilateral L5-S1 spondylolysis with grade 1 spondylolisthesis and broad disc protrusion. A 3 view bilateral knee x-ray did not show any evidence of fractures. On exam, the patient appears to be chronically but not acutely ill. He has a tunneled central line in his right chest, multiple chronic wounds on his bilateral lower extremity, recent wounds on his right lower extremity. The patient has pitting edema up to his knees bilaterally. We reviewed CODE STATUS in detail, the patient wishes to be full code. 11/14 Patient tolerated dialysis fairly well yesterday, nephrology planning to continue hemodialysis again today and tomorrow. Holding Entresto as this is not formulary and it also will likely contribute to hypotension during hemodialysis. 11/15 Tolerating dialysis well, volume status improving. Nephrology started the patient on low-dose captopril and Lopressor and discontinue Toprol. Continue holding Entresto. Nephrology okay with discharge today however therapies have yet to assess the patient. Possible discharge to low intensity rehab tomorrow. Physical exam Head: Atraumatic, normal inspection. Eyes: normal appearance, no scleral icterus. Neck: full ROM Respiratory: no respiratory distress. Cardiovascular: normal rate and rhythm, S1, S2, pacemaker/defibrillator palpable in left upper chest. GI/Abdominal: soft, nontender, no guarding. Extremities: Bilateral lower extremity pitting edema up to knees, full range of motion, nontender. Neurological: CN II-XII intact, intact motor, intact sensation. Psychiatric: normal mood. Skin: Multiple chronic appearing wounds on bilateral lower extremities, acute wounds on right lower extremity. Constitutional Vitals: Vital Signs Temp Pulse Resp BP Pulse Ox O2 Del Method O2 Flow Rate 97.1 F 90 19 93/65 98 2 11/15/21 12:27 11/15/21 12:56 11/15/21 13:46 11/15/21 13:46 11/15/21 13:46 11/15/21 07:53 11/14/21 06:01 Period Temp Pulse Resp BP Sys/Hernandez Pulse Ox O2 Del Method O2 Flow Rate Last 24 Hr 97 F-98.5 F 63-160 9-31 76-128/50-117 83-100 Room Air-Room Air Intake and Output 11/15/21 11/15/21 11/15/21 05:59 13:59 21:59 Intake Total 240 Output Total 1 5000 Balance -1 -4760 Intake & Output: Intake & Output 11/15/21 11/15/21 11/15/21 05:59 13:59 21:59 Intake Total 240 Output Total 1 5000 Balance -1 -4760 Intake: Oral 240 Output: # of times incontinent of urine 1 Hemodialysis UF 5000 Other: Meal Breakfast Percent of Meal Consumed 100% Stool Size Smear Stool Color Brown # of times incontinent of 1 Bowels OBJ DATA Labs CBC & Chem 7: 11/14/21 05:43 11/14/21 05:43 Labs: Abnormal Lab Results 11/15/21 11/14/21 11/14/21 05:18 09:02 05:43 WBC RBC Hgb Hct POC Hct RDW Immature Gran % (Auto) Neut % (Auto) Lymph % (Auto) Lymph # (Auto) Wolfe # (Auto) Seg Neutrophils % Lymphocytes % Immature Gran # Absolute Neutrophils RBC Morphology Anisocytosis PT 39.2 H 53.7 H INR 3.9 H 5.8 H* Sodium 132 L Chloride 95 L POC BUN BUN 57 H Creatinine 2.3 H POC Creatinine Glucose 181 H POC Glucose Calcium 8.0 L POC WB Ioniz Calcium Direct Bilirubin 0.3 H Alkaline Phosphatase 309 H Lactate Dehydrogenase 254 H C-Reactive Protein 9.20 H Albumin 1.6 L Globulin 4.3 H Albumin/Globulin Ratio 0.4 L 11/14/21 11/13/21 11/13/21 05:43 10:31 10:29 WBC RBC 4.00 L Hgb 11.4 L Hct 36.1 L POC Hct 35.0 L RDW 15.3 H Immature Gran % (Auto) Neut % (Auto) Lymph % (Auto) Lymph # (Auto) Wolfe # (Auto) Seg Neutrophils % 83 H Lymphocytes % 7 L Immature Gran # Absolute Neutrophils RBC Morphology Abnormal A Anisocytosis Rare A PT 29.1 H INR 2.6 H Sodium Chloride POC BUN 98 H BUN Creatinine POC Creatinine 3.6 H Glucose POC Glucose 152 H Calcium POC WB Ioniz Calcium 1.10 L Direct Bilirubin Alkaline Phosphatase Lactate Dehydrogenase C-Reactive Protein Albumin Globulin Albumin/Globulin Ratio 11/13/21 10:29 WBC 12.0 H RBC 3.97 L Hgb 11.2 L Hct 35.2 L POC Hct RDW 15.1 H Immature Gran % (Auto) 1.2 H Neut % (Auto) 85.3 H Lymph % (Auto) 4.7 L Lymph # (Auto) 0.56 L Wolfe # (Auto) 0.92 H Seg Neutrophils % Lymphocytes % Immature Gran # 0.14 H Absolute Neutrophils 10.25 H RBC Morphology Anisocytosis PT INR Sodium Chloride POC BUN BUN Creatinine POC Creatinine Glucose POC Glucose Calcium POC WB Ioniz Calcium Direct Bilirubin Alkaline Phosphatase Lactate Dehydrogenase C-Reactive Protein Albumin Globulin Albumin/Globulin Ratio Meds: Medications Acetaminophen (Acetaminophen 325 Mg Tablet) 650 mg PO Q6HP PRN; Protocol PRN Reason: Per Pain Protocol/Fever > 101 Hydrocodone Bitart/Acetaminophen (Hydrocodone/Apap 5/325mg Tablet) 1 tab PO Q4HP PRN; Protocol PRN Reason: Per Pain Protocol Last Admin: 11/13/21 20:50 Dose: 1 tab Allopurinol (Allopurinol 100 Mg Tablet) 100 mg PO QDAY [facility] Last Admin: 11/15/21 14:22 Dose: 100 mg Amitriptyline HCl (Amitriptyline 10 Mg Tablet) 10 mg PO QHS [facility] Last Admin: 11/14/21 20:48 Dose: 10 mg Aspirin (Aspirin 81 Mg Tab.Chew) 81 mg PO DAILY [facility] Last Admin: 11/15/21 14:22 Dose: 81 mg Captopril (Captopril 12.5 Mg Tablet) 3.125 mg PO TID [facility] Last Admin: 11/15/21 14:12 Dose: Not Given Dextrose (Dextrose 50% 50 Ml Vial) 0 ml IV UD PRN PRN Reason: Per Sliding Scale Diagnostic Test (Pha) (Accu-Chek 1 Each Strip) 1 each FS [facility] Last Admin: 11/15/21 11:55 Dose: 1 each Docusate Sodium (Docusate Sodium 100 Mg Capsule) 100 mg PO BID [facility] Last Admin: 11/15/21 14:22 Dose: 100 mg Glucose (Dextrose 31 Gm Oral.Susp) 15 gm PO PRN PRN PRN Reason: Hypoglycemia Dopamine HCl/Dextrose 400 mg/ (Premix) 250 mls @ 26.272 mls/hr IV .[id number] [facility]; Protocol Last Admin: 11/15/21 14:13 Dose: Not Given Sodium Chloride (Sodium Chloride 0.9%) 250 mls @ 20 mls/hr IV .[id number] [facility] Last Admin: 11/15/21 14:13 Dose: Not Given Insulin Human Lispro (Insulin Lispro 1 Unit/0.01 Ml Unit) 0 unit SQ [facility]; Protocol Last Admin: 11/15/21 11:57 Dose: 1 unit Levothyroxine Sodium (Levothyroxine 75 Mcg Tablet) 75 mcg PO QAMAC [facility] Last Admin: 11/15/21 07:22 Dose: 75 mcg Metoprolol Tartrate (Metoprolol Tartrate 25 Mg Tablet) 12.5 mg PO BID [facility] Last Admin: 11/15/21 14:13 Dose: Not Given Midodrine (Midodrine 5 Mg Tablet) 5 mg PO ONCE PRN PRN Reason: hypotension Last Admin: 11/15/21 09:39 Dose: 5 mg Ondansetron HCl (Ondansetron 4 Mg/2 Ml Vial) 4 mg IV Q4HP PRN; Protocol PRN Reason: Nausea And Vomiting Polyethylene Glycol (Polyethylene Glycol 3350 17 Gm Packet) 17 gm PO DAILYP PRN PRN Reason: Constipation Senna (Sennosides 1 Tablet) 2 tab PO HSP PRN PRN Reason: Constipation Sevelamer Carbonate (Sevelamer 800 Mg Tablet) 1,600 mg PO TIDCC [facility] Last Admin: 11/15/21 14:22 Dose: 1,600 mg Simvastatin (Simvastatin 40 Mg Tablet) 40 mg PO QHS [facility] Last Admin: 11/14/21 20:47 Dose: 40 mg Sodium Chloride (0.9 % Sodium Chloride 10 Ml Syringe) 10 ml IV Q8 [facility] Last Admin: 11/15/21 05:34 Dose: 10 ml Warfarin Sodium (Warfarin Per Pharmacy) 1 order PO DAILY@1400 [facility] Last Admin: 11/15/21 14:15 Dose: Not Given A/P Narrative A/P Narrative: Assessment: 66-year-old male with multiple comorbidities including insulin- dependent type 2 diabetes mellitus complicated by peripheral neuropathy, peripheral vascular disease, and diabetic foot wounds, hyperlipidemia, coronary artery disease, atrial fibrillation, severe cardiomyopathy status post AICD, ESRD recently started on hemodialysis via tunneled central line, hypothyroidism, obesity who presented to the emergency department after an episode of near syncope and a fall at home. The patient has been struggling to take care of himself at home, family also struggling due to the patient's multiple comorb idities and body habitus. Prior to this admission, a plan was established for the patient to go to low intensity rehab this or Friday. Family is unable to take care of the patient at this time. Hospital medicine was asked to admit the patient for observation until the patient can go to rehab. Plan -Continue observation status. -Continue home allopurinol, amitriptyline, aspirin, levothyroxine, sevelamer, simvastatin, torsemide on non hemodialysis days. -Low-dose captopril and Lopresso, plan to continue at discharge as the patient is tolerated hemodialysis better with this combination than Toprol and Entresto. -Discontinued Toprol, continue holding Entresto. -Correction Humalog SSIlow for now. -Coumadin dosing per pharmacy. -Nephrology following for hemodialysis/ultrafiltration. -Wound cares for multiple lower extremity acute to subacute and chronic wounds. -Hemodialysis/diabetic diet. -PT consult. -Case management. -DVT prophylaxis: On Coumadin. -CODE STATUS: Full -Disposition: Low intensity rehab as planned later this week, the patient qualifies for SNF because of a recent hospitalization in [place], [place]. Pulmonology referral at discharge for left lower lobe pleural based nodule and right lower lobe cavitary nodule noted on CT chest 11/13/21. Follow-up with wound care clinic for bilateral lower extremity wounds. Plan of Treatment: As above. 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
[2021-11-15] MEDS: SIMVASTATIN 40 MG TABLET PO SCH (20:53)
[2021-11-15] MEDS: AMITRIPTYLINE 10 MG TABLET PO SCH (20:53)
[2021-11-15] MEDS: HYDROcodone/APAP 5/325MG TABLET PO PRN (23:10)
[2021-11-16] MEDS: 0.9 % SODIUM CHLORIDE 250 ML IV SCH (00:30)
[2021-11-16] MEDS: 0.9 % SODIUM CHLORIDE 10 ML SYRINGE IV SCH ×3 (05:24→20:39)
[2021-11-16 06:32] LABS: Prothrombin Time 32.1 sec (11.9-14.5)
[2021-11-16] MEDS: INSULIN LISPRO 1 UNIT/0.01 ML UNIT SQ SCH ×4 (08:07→20:37)
[2021-11-16] MEDS ORDERED: FLU VACC QS2022-23(6MOS UP)/PF 60 MCG/0.5 ML SYRINGE IM ONE (09:00)
[2021-11-16] MEDS: CAPTOPRIL 12.5 MG TABLET PO SCH ×3 (09:43→20:38)
--- NOTE | 2021-11-16 10:44 | Nephrology Progress Note ---
SUBJECTIVE Subjective Patient information: Note initiated : 11/16/21 at 10:43 am Patient: Alfredo Mccall 66 y/o M admitted on 11/13/21 for fall. Chief Complaint: Weakness Principal diagnosis: End stage systolic heart failure, hypotension, ESRD & FFT Pertinent ROS: Edema Weakness Constitutional Vitals: Vital Signs Temp Pulse Resp BP Pulse Ox O2 Del Method O2 Flow Rate 97.6 F 85 14 103/68 97 2 11/16/21 09:12 11/16/21 10:25 11/16/21 07:44 11/16/21 10:25 11/16/21 07:44 11/16/21 07:44 11/14/21 06:01 Period Temp Pulse Resp BP Sys/Hernandez Pulse Ox O2 Del Method O2 Flow Rate Last 24 Hr 97.1 F-98.8 F 63-99 10-31 76-128/53-117 86-100 Room Air-Room Air Intake and Output 11/15/21 11/16/21 11/16/21 21:59 05:59 13:59 Intake Total 240 200 480 Balance 240 200 480 Weight 288 lb 11.2 oz 303 lb 12.8 oz Intake & Output: Intake & Output 11/15/21 11/16/21 11/16/21 21:59 05:59 13:59 Intake Total 240 200 480 Balance 240 200 480 Weight 288 lb 11.2 oz 303 lb 12.8 oz Intake: Oral 240 200 480 Other: Meal Dinner Breakfast Percent of Meal Consumed 100% 100% Feeding Ability Independent Assist with Tray Set Up Urine Appearance Clear Urine Color Yellow Stool Size Small Stool Color Brown Stool Consistency Formed # Voids 1 # Bowel Movements 1 General appearance: cooperative and no acute distress Head Head exam: Present normal inspection Eye Eye exam: Present normal appearance ENT ENT exam: Present mucous membranes moist Respiratory Respiratory exam: Absent respiratory distress Cardiovascular Cardiovascular exam: Present normal rate and rhythm GI/Abdominal GI/Abdominal exam: Present soft; Absent tenderness Extremities Exam Extremities exam: Present pedal edema Neurological Exam Neurological exam: Present alert and oriented X3 Psychiatric Psychiatric exam: Present normal affect and normal mood Skin Skin exam: Present warm; Absent rash A/P Assessment and plan (1) ESRD on hemodialysis: Assessment and plan: ESRD on chronic HD on TTS. Fluid overload with heart failure. Isolated U/F for 5 kg today. The patient seen and evaluated during dialysis at 11:55. Tolerating so far. Outpatient hemodialysis tomorrow at his scheduled time. Status: Chronic Time Spent With Patient Time: Total time spent is greater than 50% in coordination of care (as documented) at patient's floor/unit and/or counseling patient:
--- NOTE | 2021-11-16 10:59 | Discharge Summary ---
Discharge Provider Provider IMPORTANT FOLLOW-UP INFORMATION FOR PCP: Patient information: Note initiated : 11/16/21 at 10:55 am Service Date, if different from initiated Date: [] Patient: Alfredo Mccall 66 y/o M admitted on 11/13/21 for fall. Chief Complaint: [] Date of admission: 11/13/21 14:10 Discharge date: 11/16/21 Primary care physician: Esteban Eid Consults: 11/13/21 Consult to Physician [CONS] Stat Comment: Consulting Provider: Los Bryant Reason For Exam: Physician to Consult Consult to Physician [CONS] Stat Comment: Consulting Provider: Fish Talbot Reason For Exam: Physician to Consult 11/13/21 14:51 Consult to Physician [CONS] Stat Comment: Consulting Provider: Fish Talbot Reason For Exam: Physician to Consult 11/14/21 11:31 Consult to Physician [CONS] Routine Comment: snf Consulting Provider: [facility] Reason For Exam: Physician to Consult COURSE Hospital Course Hospital course: Mr. Mccall is a 66 year old with multiple comorbidities including insulin- dependent type 2 diabetes mellitus complicated by peripheral neuropathy, peripheral vascular disease, and diabetic foot wounds, hyperlipidemia, coronary artery disease, atrial fibrillation, severe cardiomyopathy status post AICD, ESRD recently started on hemodialysis via tunneled central line, hypothyroidism, obesity who presented to the emergency department after an episode of near syncope and a fall at home. In the emergency department, the patient was unable to ambulate independently. Patient's family is also unable to take care of the patient due to his multiple comorbidities and body habitus. Work-up in the ED included CBC which an elevated WBC of 12,000, chemistry panel showed a normal potassium, elevated creatinine as expected for ESRD, [id number] glucose was 152. A CT chest without contrast showed a 4 mm pleural-based nodule in the anterior basilar segment of the left lower lobe which was new compared to a CT scan 4 years ago, there was also a small cavitary nodule in the posterior basilar segment of the right lower lobe that was also new. There were multiple moderately enlarged lymph nodes in the lower mediastinotomy hilum which were stable compared to a CT chest about 4 years ago. Radiology recommended a follow-up CT chest in about 3 months. There was a chronic appearing T12 compression fracture as well as chronic bilateral L5-S1 spondylolysis with grade 1 spondylolisthesis and broad disc protrusion. A 3 view bilateral knee x-ray did not show any evidence of fractures. On exam, the patient appears to be chronically but not acutely ill. He has a tunneled central line in his right chest, multiple chronic wounds on his bilateral lower extremity, recent wounds on his right lower extremity. The patient has pitting edema up to his knees bilaterally. We reviewed CODE STATUS in detail, the patient wishes to be full code. 11/14 Patient tolerated dialysis fairly well yesterday, nephrology planning to continu e hemodialysis again today and tomorrow. Holding Entresto as this is not formulary and it also will likely contribute to hypotension during hemodialysis. 11/15 Tolerating dialysis well, volume status improving. Nephrology started the patient on low-dose captopril and Lopressor and discontinue Toprol. Continue holding Entresto. Nephrology okay with discharge today however therapies have yet to assess the patient. Possible discharge to low intensity rehab tomorrow. 11/16 Patient had hemodialysis today[facility] Continued low-dose captopril and Lopressor at discharge, discontinued Toprol and Entresto as the patient is tolerating dialysis better with captopril and Lopressor. Nephrology continues to follow, plan is to continue more dialysis Tuesdays. Pulmonology referral placed at discharge for abnormal CT chest findings. Patient will continue to follow-up at the wound care clinic. Physical exam Head: Atraumatic, normal inspection. Eyes: normal appearance, no scleral icterus. Neck: full ROM Respiratory: no respiratory distress. Cardiovascular: normal rate and rhythm, S1, S2, pacemaker/defibrillator palpable in left upper chest. GI/Abdominal: soft, nontender, no guarding. Extremities: Improved bilateral lower extremity edema, full range of motion, nontender. Neurological: CN II-XII intact, intact motor, intact sensation. Psychiatric: normal mood. Skin: Multiple chronic appearing wounds on bilateral lower extremities, acute wounds on right lower extremity. Discharge diagnosis: Generalized weakness Secondary discharge diagnosis: Volume overload Presyncope Time Spent with Patient Time attestation: Total time spent providing and/or coordinating discharge services: Time spent: Greater than 30 minutes EXAM Constitutional Vitals: Temp Pulse Resp BP Pulse Ox O2 Del Method O2 Flow Rate 97.6 F 85 14 103/68 97 2 11/16/21 09:12 11/16/21 10:25 11/16/21 07:44 11/16/21 10:25 11/16/21 07:44 11/16/21 07:44 11/14/21 06:01 Discharge Data Data Completed and Pending Labs on day of discharge: Labs from last 24 hours 11/16/21 05:10 PT 32.1 H INR 3.0 H Discharge Plan Patient/Caregiver Discharge Instructions Activity: resume usual activities as tolerated Diet: Renal/Consistent Carbs Prescriptions: Continued torsemide 100 mg tablet See Rx Instructions PO QAM Qty: 30 11RF Rx Instructions: 100 mg orally on QMWFSun on nondialysis days orally every morning; sevelamer HCl 800 mg tablet 1,600 mg PO .TID cc Rx Instructions: must administer with a meal/food Disp 180 tabs with 12 refills captopril 12.5 mg tablet 3.125 mg PO Q8H Qty: 30 11RF Rx Instructions: Hold if BP less than 90 mmHg Hold dose immediatly before dialysis metoprolol tartrate 25 mg tablet 12.5 mg PO BID Qty: 30 11RF Rx Instructions: New lower dose Hold if Pulse less than 60/min or BP less than 90 systolic amitriptyline 10 mg tablet 10 mg PO QHS aspirin 81 mg tablet,chewable 81 mg PO QDAY insulin aspart U-100 100 unit/mL (3 mL) insulin pen 30 unit SUB-Q .COMPLEX PRN (Reason: Blood Sugar - High) Label Comments: used for sliding scale 12 unit Rx Instructions: 30 unit SUB-Q sliding scale; administer within 5-10 min before a meal/food and no later than at the start of the meal/snack (DME) Freestyle InsuLinx Test Strips Strip See Rx Instructions .ROUTE .MEDSUPPLY Qty: 10 Rx Instructions: As directed insulin glargine 100 unit/mL (3 mL) insulin pen 10 unit SUB-Q QPM (DME) FreeStyle [place] 14 Day Sensor Kit See Rx Instructions .ROUTE .MEDSUPPLY Qty: 1 Rx Instructions: As directed insulin asp prt-insulin aspart [Novolog Mix 70-30FlexPen U-100] 100 unit/mL (70-30) insulin pen 5 unit SUB-Q BID (DME) insulin syringe-needle U-100 1/2 mL 29 X 3/4 " syringe See Rx Instructions .ROUTE .MEDSUPPLY Qty: 1 Rx Instructions: As directed levothyroxine 75 mcg capsule 75 mcg PO QDAY cholecalciferol (vitamin D3) 1,250 mcg (50,000 unit) capsule 1,250 mcg PO QWEEK Rx Instructions: 3 times per week, mon,wed,fri allopurinol 100 mg tablet 100 mg PO QDAY simvastatin 40 mg tablet 40 mg PO QHS warfarin 5 MG tablet 5 mg PO DAILY Rx Instructions: Takes 7 mg daily at 1400 Follow Up Plan Follow up with: Esteban Eid MD [Primary Care Provider] - Patient Disposition: [facility] Plan of Treatment: As above. Need to know what D/C plans are from CM etc Next Isolated U/F tomorrow still looking for maximal fluid removal. 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
[2021-11-16] MEDS: SEVELAMER 800 MG TABLET PO SCH ×3 (12:18→16:38)
[2021-11-16] MEDS: ASPIRIN 81 MG TAB.CHEW PO SCH (12:45)
[2021-11-16] MEDS: DOCUSATE SODIUM 100 MG CAPSULE PO SCH ×2 (12:46→20:38)
[2021-11-16] MEDS: ALLOPURINOL 100 MG TABLET PO SCH (12:46)
[2021-11-16] MEDS: LEVOTHYROXINE 75 MCG TABLET PO SCH (12:46)
[2021-11-16] MEDS: METOPROLOL TARTRATE 25 MG TABLET PO SCH ×2 (12:47→20:37)
[2021-11-16] MEDS ORDERED: WARFARIN 3 MG TABLET PO ONE (16:00)
[2021-11-16] MEDS: SIMVASTATIN 40 MG TABLET PO SCH (20:38)
[2021-11-16] MEDS: AMITRIPTYLINE 10 MG TABLET PO SCH (20:38)
[2021-11-16] MEDS: HYDROcodone/APAP 5/325MG TABLET PO PRN (23:30)
[2021-11-17] MEDS: 0.9 % SODIUM CHLORIDE 10 ML SYRINGE IV SCH ×2 (04:59→14:35)
[2021-11-17 07:20] LABS: INR 2.9 (0.9-1.1); Prothrombin Time 31.3 sec (11.9-14.5)
[2021-11-17] MEDS: ASPIRIN 81 MG TAB.CHEW PO SCH ×2 (08:13→11:12)
[2021-11-17] MEDS: ALLOPURINOL 100 MG TABLET PO SCH ×2 (08:13→11:11)
[2021-11-17] MEDS: INSULIN LISPRO 1 UNIT/0.01 ML UNIT SQ SCH ×2 (08:13→14:34)
[2021-11-17] MEDS: LEVOTHYROXINE 75 MCG TABLET PO SCH ×2 (08:13→11:12)
[2021-11-17] MEDS: DOCUSATE SODIUM 100 MG CAPSULE PO SCH ×2 (08:13→11:12)
[2021-11-17] MEDS: SEVELAMER 800 MG TABLET PO SCH ×2 (08:13→14:33)
[2021-11-17] MEDS: CAPTOPRIL 12.5 MG TABLET PO SCH ×2 (11:12→14:26)
[2021-11-17] MEDS: METOPROLOL TARTRATE 25 MG TABLET PO SCH (11:12)
[2021-11-17] MEDS ORDERED: 0.9 % SODIUM CHLORIDE 10 ML SYRINGE IV SCH (14:00)
[2021-11-17] MEDS ORDERED: WARFARIN 3 MG TABLET PO ONE (14:00)
[2021-11-17] MEDS ORDERED: LACTULOSE 20 GM/30 ML ORAL.SOL PO SCH (15:00)
== END 2021-11-17 18:13 ==
LOC: ED 09:41 → ICU 09:41 → MEDSUR 11-15 17:25
PROVIDERS: ADMIT Internal Medicine; ATTEND Internal Medicine